=== PATIENT | female | born 1965 | race Caucasian/White ===

== ENCOUNTER 2020-07-09 09:15 | Inpatient (IN) | payer MEDICAID, SELFPAY ==
[2020-07-09] VITALS (19 sets, daily range): BP systolic 100–140; BP diastolic 59–93; PULSE 69–118; RESP 13–24; TEMP 36–38.6; O2SAT 95–99; BMI 22.3; BMI 22.5
--- NOTE | 2020-07-09 09:32 | CT_ITS ---
EXAMINATION: CT HEAD WITHOUT CONTRAST CLINICAL INFORMATION: Altered mental status, possible fall, possible trauma. COMPARISON: None TECHNIQUE: Contiguous axial imaging was performed from the skull base to vertex without intravenous administration of contrast. Additional 2-D coronal and sagittal reformatted images are generated on the CT workstation and uploaded to PACS. DOSE LOWERING TECHNIQUES: This CT examination was performed using dose optimization techniques as appropriate, variously including the following: *Automated exposure control *Adjustment of mA and/or kV according to patient size (this includes techniques or standardized protocols for targeted exams where dose is matched to indication/reason for exam; i.e. extremities or head) *Use of iterative reconstruction technique DLP: 715 mGy-cm FINDINGS: There is no intracranial hemorrhage, hematoma, or extra-axial fluid collection. The ventricles are normal in size. There is no hydrocephalus, edema, or mass effect. The pena-white matter differentiation is grossly symmetric. There is no visible acute territorial infarct or mass lesion. The calvarium appears intact. There is no pneumocephalus or orbital emphysema. The visualized sinuses and middle ears and mastoid air cells show no significant mucosal thickening. There are no air-fluid levels. IMPRESSION: No acute intracranial abnormality.
--- NOTE | 2020-07-09 09:33 | ECG_ITS ---
Test Reason : ETOH Blood Pressure : / mmHG Vent. Rate : 099 BPM Atrial Rate : 099 BPM P-R Int : 126 ms QRS Dur : 078 ms QT Int : 518 ms P-R-T Axes : 065 079 187 degrees QTc Int : 664 ms Poor data quality Normal sinus rhythm Possible Left atrial enlargement ST & Marked T wave abnormality, consider anterolateral ischemia Prolonged QT Abnormal ECG When compared with ECG of 22-MAY-2008 16:36, Significant changes have occurred Referred By: Maryam Porter Electronically Signed By:KANDI GOODWIN MD
--- NOTE | 2020-07-09 09:40 | ED.GENADULT ---
HPI - General Adult General Chief complaint: ETOH/Substance Use Stated complaint: AMS S/P ETOH USE Time Seen by Provider: 07/09/20 09:17 Source: EMS Mode of arrival: EMS Limitations: altered mental status History of Present Illness HPI narrative: patient comes to the emergency room via EMS. EMS got called by the patient's son who found the patient have naked on the floor at the patient's house. Seems that the patient has been drinking alcohol. Patient is unable to give any history, patient keeps saying that she wants to , patient seems very confused. according to EMS, the house was very dirty, feces on the floor, seems that the patient has not been taking care of herself for several days MD complaint: altered mental status Onset (ago): unknown Related Data Allergies Allergy/AdvReac Type Severity Reaction Status Date / Time No Known Allergies Allergy Unverified 06/04/20 15:43 Review of Systems Review of Systems: Yes Unobtainable due to mental status PMFSH Past Medical History Medical History (Updated 07/09/20 @ 14:42 by Maryam Porter MD) Alcoholism History of ETOH abuse Social History Social History Advance Directives: No Advance Directives Information Provided: Yes Physical Exam Vital Signs: Vital Signs: Vital Signs Temp Pulse Resp BP Pulse Ox 07/09/20 15:05 109 H 16 140/78 H 07/09/20 13:41 101.4 F H 109 H 14 117/72 98 07/09/20 13:35 118 H 24 H 119/74 07/09/20 13:23 101.4 F H 07/09/20 13:08 112 H 21 H 117/73 98 07/09/20 12:12 100.8 F H 07/09/20 11:54 103 H 20 124/78 98 07/09/20 10:28 101.1 F H 103 H 07/09/20 09:29 98.0 F 97 18 137/93 H 95 Body Mass Index 22.5 Appearance: patient unable to answer any questions, very confused, alert, keeps whispering I want to Eyes: Pupils equal, round and reactive to light, ENT: Pharynx normal. Neck: Normal inspection. Neck supple. No lymph nodes noted. No crepitus CVS: tachycardic , S1 and S2 Respiratory: No respiratory distress. Breath sounds normal. No Wheezing. No rales Abdomen: Soft seems nontender. No rigidity. No distention. good BS x4 Skin: Skin warm and dry. Normal skin color. Normal skin turgor. Extremities: No lower extremity edema. No lower extremity edema. No Lacerations. No Rash Neuro: altered mental status, cranial nerves 2-12 grossly intact Course Course Course Narrative: Patient's EKG is abnormal, new, significant changes since her last EKG in 2007. Patient able to give any history. I discussed the patient with Dr. Paulo florence from Cardiology, at this time, patient will be evaluated with a formal echocardiogram. Patient's remains with AMS patient increasingly combative, 2 mg of Ativan did not help with the agitation. Patient has a significant 3 prolonged QTC at almost 700. I discussed with pharmacy if ketamine would be appropriate for a 1 time use, there advises that it will not affect the QTC unless the patient is started on an infusion, therefore we will give a small 1 time dose of 1 week per kg of ketamine Dr. Alvarez evaluated the echocardiogram, it is likely that the patient's EKG changes are secondary to Takotsubo. At this time, it is possible that the patient has altered mental status versus delirium tremens, however given that the patient has fever and there is no known source of infection, we will proceed with a lumbar puncture And empiric treatment with ceftriaxone for possible meningitis. CSF labs pending I discussed the patient with the hospitalist, patient remains agitated after being sedated with propofol and ketamine, instead, patient will be admitted to the ICU I discussed the patient with Dr. Silvestre, admitted to ICU Procedures Lumbar Puncture Time Out Performed: Yes Patient Position: upright Skin Prep: 0.5% Chlorhexidine/Alcohol Local Anesthetic: lidocaine 1% Amount of anesthesia used (mL): 5 Spinal Needle Gauge: 22G Interspace Used: L4-L5 Opening Pressure (cmH20): 44 Fluid Initially Obtained: clear Complications: none Additional Comments: Patient was premedicated with ketamine and propofol for procedural sedation Medical Decision Making Lab Data Result diagrams: 07/09/20 10:07/09/20 10:27 Labs: Lab Results 07/09/20 07/09/20 07/09/20 Range/Units 10: 10: 10:27 WBC (4.8-10.8) X10*3/uL RBC (4.20-5.50) X10*6/uL Hgb (12.0-16.0) g/dl Hct (37-47) % MCV (80-98) fL MCH (27.0-33.0) pg MCHC (31.0-35.0) g/dl RDW (11.0-16.0) % Plt Count (160-400) X10*3/uL MPV (9.4-12.3) fL Immature Gran % (Auto) (0.0-0.4) % Neut % (Auto) (45-73) % Lymph % (Auto) (20-40) % [place] % (Auto) (2-11) % Eos % (Auto) (0-4) % Baso % (Auto) (0-2) % Lymph # (Auto) (1.2-4.9) X10*3/uL [place] # (Auto) (0.1-1.2) X10*3/uL Eos # (Auto) (0.0-0.4) X10*3/uL Baso # (Auto) (0.0-0.2) X10*3/uL Abs Immat Gran (auto) (0.00-0.03) X10*3/uL Absolute Neuts (auto) (2.0-8.3) X10*3/uL Absolute Nucleated RBC (0.0-0.012) X10*3/uL Nucleated RBC % (auto) (0.0-0.2) /100WBC Smear Tech's Comments Hold Blue Top Sodium (135-145) mmol/L Potassium (3.3-5.1) mmol/l Chloride (96-108) mmol/L Carbon Dioxide (22-29) mmol/L Anion Gap (12-20) BUN (9-16) mg/dL Creatinine (0.5-1.4) mg/dL Estim Creat Clear Calc Estimated GFR Random Glucose (60-115) mg/dL Lactic Acid (0.5-2.0) mmol/L Calcium (8.4-10.2) mg/dL Magnesium (1.6-2.6) mg/dL Total Bilirubin (0.0-1.0) mg/dL Direct Bilirubin (0.0-0.5) mg/dL AST (5-31) U/L ALT (0-31) U/L Alkaline Phosphatase (39-117) U/L Ammonia 40 (13-55) umol/L Troponin I High Sens (<3.5-17.0) ng/L Total Protein (6.5-8.0) g/dL Albumin (3.5-5.0) g/dL Lipase (8-78) U/L Urine Color Urine Appearance Urine pH (5.0-8.0) Ur Specific [place] (1.005-1.025) Urine Protein (NEG-TRACE) MG/DL Urine Glucose (UA) (NEG) MG/DL Urine Ketones (NEG) MG/DL Urine Blood (NEG) Urine Nitrite (NEG) Ur Leukocyte Esterase (NEG) Urine RBC (0) /HPF Urine WBC (0-4) /HPF Ur Squamous Epith Cells /LPF Urine Bacteria /LPF CSF Tube Number CSF Appearance Salicylates < 5.0 L (15-30) mg/dL Urine Opiates Screen (Not Detect) Acetaminophen < 1 (<30) mcg/mL Ur Barbiturates Screen (Not Detect) Ur Phencyclidine Scrn (Not Detect) Ur Amphetamines Screen (Not Detect) U Benzodiazepines Scrn (Not Detect) Urine Cocaine Screen (Not Detect) U Marijuana (THC) Screen (Not Detect) Ethyl Alcohol < 10 mg/dL 07/09/20 07/09/20 07/09/20 Range/Units 10:27 10:27 10:27 WBC 12.0 H (4.8-10.8) X10*3/uL RBC 3.78 L (4.20-5.50) X10*6/uL Hgb 13.4 (12.0-16.0) g/dl Hct 36.5 L (37-47) % MCV 96.6 (80-98) fL MCH 35.4 H (27.0-33.0) pg MCHC 36.7 H (31.0-35.0) g/dl RDW 12.2 (11.0-16.0) % Plt Count 298 (160-400) X10*3/uL MPV 11.1 (9.4-12.3) fL Immature Gran % (Auto) 0.5 H (0.0-0.4) % Neut % (Auto) 89.9 H (45-73) % Lymph % (Auto) 4.0 L (20-40) % [place] % (Auto) 5.4 (2-11) % Eos % (Auto) 0.1 (0-4) % Baso % (Auto) 0.1 (0-2) % Lymph # (Auto) 0.5 L (1.2-4.9) X10*3/uL [place] # (Auto) 0.6 (0.1-1.2) X10*3/uL Eos # (Auto) 0.0 (0.0-0.4) X10*3/uL Baso # (Auto) 0.0 (0.0-0.2) X10*3/uL Abs Immat Gran (auto) 0.06 H (0.00-0.03) X10*3/uL Absolute Neuts (auto) 10.8 H (2.0-8.3) X10*3/uL Absolute Nucleated RBC 0.000 (0.0-0.012) X10*3/uL Nucleated RBC % (auto) 0.0 (0.0-0.2) /100WBC Smear Tech's Comments VERIFIED Hold Blue Top Sodium 123 L (135-145) mmol/L Potassium 3.4 (3.3-5.1) mmol/l Chloride 85 L (96-108) mmol/L Carbon Dioxide 18 L (22-29) mmol/L Anion Gap 23 H (12-20) BUN 11 (9-16) mg/dL Creatinine 0.84 (0.5-1.4) mg/dL Estim Creat Clear Calc 67.2 Estimated GFR > 60 Random Glucose 88 (60-115) mg/dL Lactic Acid (0.5-2.0) mmol/L Calcium 9.4 (8.4-10.2) mg/dL Magnesium 1.3 L* (1.6-2.6) mg/dL Total Bilirubin 1.9 H (0.0-1.0) mg/dL Direct Bilirubin 0.8 H (0.0-0.5) mg/dL AST 98 H (5-31) U/L ALT 103 H (0-31) U/L Alkaline Phosphatase 112 (39-117) U/L Ammonia (13-55) umol/L Troponin I High Sens 41.0 H (<3.5-17.0) ng/L Total Protein 7.1 (6.5-8.0) g/dL Albumin 4.5 (3.5-5.0) g/dL Lipase 9 (8-78) U/L Urine Color Urine Appearance Urine pH (5.0-8.0) Ur Specific [place] (1.005-1.025) Urine Protein (NEG-TRACE) MG/DL Urine Glucose (UA) (NEG) MG/DL Urine Ketones (NEG) MG/DL Urine Blood (NEG) Urine Nitrite (NEG) Ur Leukocyte Esterase (NEG) Urine RBC (0) /HPF Urine WBC (0-4) /HPF Ur Squamous Epith Cells /LPF Urine Bacteria /LPF CSF Tube Number CSF Appearance Salicylates (15-30) mg/dL Urine Opiates Screen (Not Detect) Acetaminophen (<30) mcg/mL Ur Barbiturates Screen (Not Detect) Ur Phencyclidine Scrn (Not Detect) Ur Amphetamines Screen (Not Detect) U Benzodiazepines Scrn (Not Detect) Urine Cocaine Screen (Not Detect) U Marijuana (THC) Screen (Not Detect) Ethyl Alcohol mg/dL 07/09/20 07/09/20 07/09/20 Range/Units 10:39 10:39 11:34 WBC (4.8-10.8) X10*3/uL RBC (4.20-5.50) X10*6/uL Hgb (12.0-16.0) g/dl Hct (37-47) % MCV (80-98) fL MCH (27.0-33.0) pg MCHC (31.0-35.0) g/dl RDW (11.0-16.0) % Plt Count (160-400) X10*3/uL MPV (9.4-12.3) fL Immature Gran % (Auto) (0.0-0.4) % Neut % (Auto) (45-73) % Lymph % (Auto) (20-40) % [place] % (Auto) (2-11) % Eos % (Auto) (0-4) % Baso % (Auto) (0-2) % Lymph # (Auto) (1.2-4.9) X10*3/uL [place] # (Auto) (0.1-1.2) X10*3/uL Eos # (Auto) (0.0-0.4) X10*3/uL Baso # (Auto) (0.0-0.2) X10*3/uL Abs Immat Gran (auto) (0.00-0.03) X10*3/uL Absolute Neuts (auto) (2.0-8.3) X10*3/uL Absolute Nucleated RBC (0.0-0.012) X10*3/uL Nucleated RBC % (auto) (0.0-0.2) /100WBC Smear Tech's Comments Hold Blue Top SEE NOTE Sodium (135-145) mmol/L Potassium (3.3-5.1) mmol/l Chloride (96-108) mmol/L Carbon Dioxide (22-29) mmol/L Anion Gap (12-20) BUN (9-16) mg/dL Creatinine (0.5-1.4) mg/dL Estim Creat Clear Calc Estimated GFR Random Glucose (60-115) mg/dL Lactic Acid 1.6 (0.5-2.0) mmol/L Calcium (8.4-10.2) mg/dL Magnesium (1.6-2.6) mg/dL Total Bilirubin (0.0-1.0) mg/dL Direct Bilirubin (0.0-0.5) mg/dL AST (5-31) U/L ALT (0-31) U/L Alkaline Phosphatase (39-117) U/L Ammonia (13-55) umol/L Troponin I High Sens (<3.5-17.0) ng/L Total Protein (6.5-8.0) g/dL Albumin (3.5-5.0) g/dL Lipase (8-78) U/L Urine Color YELLOW Urine Appearance HAZY Urine pH 6.0 (5.0-8.0) Ur Specific [place] 1.020 (1.005-1.025) Urine Protein NEG (NEG-TRACE) MG/DL Urine Glucose (UA) NEG (NEG) MG/DL Urine Ketones >=80 (NEG) MG/DL Urine Blood TRACE (NEG) Urine Nitrite NEG (NEG) Ur Leukocyte Esterase NEG (NEG) Urine RBC 0-2 (0) /HPF Urine WBC 0 (0-4) /HPF Ur Squamous Epith Cells TRACE /LPF Urine Bacteria NONE /LPF CSF Tube Number CSF Appearance Salicylates (15-30) mg/dL Urine Opiates Screen (Not Detect) Acetaminophen (<30) mcg/mL Ur Barbiturates Screen (Not Detect) Ur Phencyclidine Scrn (Not Detect) Ur Amphetamines Screen (Not Detect) U Benzodiazepines Scrn (Not Detect) Urine Cocaine Screen (Not Detect) U Marijuana (THC) Screen (Not Detect) Ethyl Alcohol mg/dL 07/09/20 07/09/20 Range/Units 11:34 14:49 WBC (4.8-10.8) X10*3/uL RBC (4.20-5.50) X10*6/uL Hgb (12.0-16.0) g/dl Hct (37-47) % MCV (80-98) fL MCH (27.0-33.0) pg MCHC (31.0-35.0) g/dl RDW (11.0-16.0) % Plt Count (160-400) X10*3/uL MPV (9.4-12.3) fL Immature Gran % (Auto) (0.0-0.4) % Neut % (Auto) (45-73) % Lymph % (Auto) (20-40) % [place] % (Auto) (2-11) % Eos % (Auto) (0-4) % Baso % (Auto) (0-2) % Lymph # (Auto) (1.2-4.9) X10*3/uL [place] # (Auto) (0.1-1.2) X10*3/uL Eos # (Auto) (0.0-0.4) X10*3/uL Baso # (Auto) (0.0-0.2) X10*3/uL Abs Immat Gran (auto) (0.00-0.03) X10*3/uL Absolute Neuts (auto) (2.0-8.3) X10*3/uL Absolute Nucleated RBC (0.0-0.012) X10*3/uL Nucleated RBC % (auto) (0.0-0.2) /100WBC Smear Tech's Comments Hold Blue Top Sodium (135-145) mmol/L Potassium (3.3-5.1) mmol/l Chloride (96-108) mmol/L Carbon Dioxide (22-29) mmol/L Anion Gap (12-20) BUN (9-16) mg/dL Creatinine (0.5-1.4) mg/dL Estim Creat Clear Calc Estimated GFR Random Glucose (60-115) mg/dL Lactic Acid (0.5-2.0) mmol/L Calcium (8.4-10.2) mg/dL Magnesium (1.6-2.6) mg/dL Total Bilirubin (0.0-1.0) mg/dL Direct Bilirubin (0.0-0.5) mg/dL AST (5-31) U/L ALT (0-31) U/L Alkaline Phosphatase (39-117) U/L Ammonia (13-55) umol/L Troponin I High Sens (<3.5-17.0) ng/L Total Protein (6.5-8.0) g/dL Albumin (3.5-5.0) g/dL Lipase (8-78) U/L Urine Color Urine Appearance Urine pH (5.0-8.0) Ur Specific [place] (1.005-1.025) Urine Protein (NEG-TRACE) MG/DL Urine Glucose (UA) (NEG) MG/DL Urine Ketones (NEG) MG/DL Urine Blood (NEG) Urine Nitrite (NEG) Ur Leukocyte Esterase (NEG) Urine RBC (0) /HPF Urine WBC (0-4) /HPF Ur Squamous Epith Cells /LPF Urine Bacteria /LPF CSF Tube Number 2 CSF Appearance CLEAR Salicylates (15-30) mg/dL Urine Opiates Screen Not Detected (Not Detect) Acetaminophen (<30) mcg/mL Ur Barbiturates Screen Not Detected (Not Detect) Ur Phencyclidine Scrn Not Detected (Not Detect) Ur Amphetamines Screen Not Detected (Not Detect) U Benzodiazepines Scrn Not Detected (Not Detect) Urine Cocaine Screen Not Detected (Not Detect) U Marijuana (THC) Screen Not Detected (Not Detect) Ethyl Alcohol mg/dL ECG Data Attestation: I personally reviewed and interpreted this ECG as follows: ( sinus rhythm, ventricular rate 99, QTC 669, significant T-wave inversions in V3 through V6, new since 2007) Critical Care Time Critical Care Time Critical Care Time: Yes Total Critical Care Time: 180 Attestation: patient needed over 3 hours of continuous monitor, care, sedation, consults, care planning, and procedures Discharge Plan Discharge Clinical Impression: Encephalopathy Patient Disposition: Admitted As Inpatient
--- NOTE | 2020-07-09 10:11 | ECG_ITS ---
Test Reason : REPEAT Blood Pressure : / mmHG Vent. Rate : 099 BPM Atrial Rate : 099 BPM P-R Int : 124 ms QRS Dur : 088 ms QT Int : 522 ms P-R-T Axes : 080 084 189 degrees QTc Int : 669 ms Normal sinus rhythm Biatrial enlargement ST & Marked T wave abnormality, consider anterolateral ischemia Prolonged QT Abnormal ECG When compared with ECG of 09-JUL-2020 09:43, No significant change was found Referred By: Maryam Porter Electronically Signed By:KANDI GOODWIN MD
[2020-07-09 10:41] LABS: Basophils Percent Auto 0.1 % (0-2); Eosinophils Percent Auto 0.1 % (0-4); Hematocrit 36.5 % (37-47); Hemoglobin 13.4 g/dl (12.0-16.0); Imm Gran Abs Auto 0.06 X10*3/uL (0.00-0.03); Imm Gran Pct Auto 0.5 % (0.0-0.4); Lymphocytes Absolute Auto 0.5 X10*3/uL (1.2-4.9); MANUAL DIFF FLAG SCAN; Mean Corpuscular HGB Conc 36.7 g/dl (31.0-35.0); Mean Corpuscular Hemoglobin 35.4 pg (27.0-33.0); Mean Corpuscular Volume 96.6 fL (80-98); Mean Platelet Volume 11.1 fL (9.4-12.3); Monocytes Absolute Auto 0.6 X10*3/uL (0.1-1.2); Monocytes Percent Auto 5.4 % (2-11); Neutrophils Absolute Auto 10.8 X10*3/uL (2.0-8.3); Neutrophils Percent Auto 89.9 % (45-73); Platelet Count 298 X10*3/uL (160-400); Red Blood Count 3.78 X10*6/uL (4.20-5.50); Red Cell Distribution Width 12.2 % (11.0-16.0); SCAN SMEAR FLAG 1
[2020-07-09] MEDS: Acetaminophen 325 MG TABLET 650 MG PO (10:48)
[2020-07-09 10:59] LABS: Ammonia 40 umol/L (13-55)
[2020-07-09 11:03] LABS: Ethanol < 10 mg/dL
--- NOTE | 2020-07-09 11:03 | PC.NURSE ---
Put seizure pads on pts stretcher for safety precautions. Pt anxious and unable to keep legs and arms in stretcher. RN aware.
[2020-07-09 11:08] LABS: Salicylate < 5.0 mg/dL (15-30)
[2020-07-09 11:09] LABS: Lactic Acid 1.6 mmol/L (0.5-2.0)
[2020-07-09 11:10] LABS: Acetaminophen LAB < 1 mcg/mL (<30)
[2020-07-09 11:11] LABS: Alanine Aminotransferase 103 U/L (0-31); Albumin Level 4.5 g/dL (3.5-5.0); Alkaline Phosphatase 112 U/L (39-117); Aspartate Amino Transferase 98 U/L (5-31); Bilirubin Direct 0.8 mg/dL (0.0-0.5); Bilirubin Total 1.9 mg/dL (0.0-1.0); Blood Urea Nitrogen 11 mg/dL (9-16); Calcium 9.4 mg/dL (8.4-10.2); Creatinine Clr Calc Pharmacy 67.2; Estimated Glomerular Filt Rate > 60; Glucose Random 88 mg/dL (60-115); Lipase 9 U/L (8-78); Total Protein 7.1 g/dL (6.5-8.0)
[2020-07-09 11:17] LABS: SLIDE REVIEW VERIFIED
[2020-07-09 11:24] LABS: Anion Gap 23 (12-20); Carbon Dioxide 18 mmol/L (22-29); Chloride 85 mmol/L (96-108); Potassium 3.4 mmol/l (3.3-5.1); Sodium 123 mmol/L (135-145)
--- NOTE | 2020-07-09 11:36 | CA_ITS ---
Transthoracic Echocardiogram Patient (Last, First, Middle): Shelly Mac, Gender: Female Date of : 1965 Age: 54 Procedure Date: 07/09/2020 Procedure Type: Transthoracic Echocardiogram Location: ER Height: 165.1 cm Weight: 61.24 kg BSA: 1.67 m2 Heart Rate: bpm BP: 124 / 78 mmHg Ingot Weigher: SIRIA Referring MD: Maryam Porter MD Symptoms: ITS.REASON Conclusions: - Limited echo. Patient is quite confused and agitated. - Normal left ventricular cavity size. There is mildly increased left ventricular wall thickness. The left ventricular systolic function is normal. - The entire apex, the mid anterior, mid inferior, mid anterolateral, mid inferoseptal, mid anteroseptal, and mid inferolateral segments are hypokinetic. - Findings consistent with Takotsubo cardiomyopathy but coronary disease cannot be ruled out. - Cannot rule out apical hypertrophy and she will require further imaging as mental status improves. Findings Left Ventricle Normal left ventricular cavity size. There is mildly increased left ventricular wall thickness. The left ventricular systolic function is normal. The visually estimated ejection fraction is between 55-60%. There is evidence of regional wall motion abnormalities. Diastolic function is indeterminate on the basis of available data. Wall Motion Rest Echo Findings The entire apex, the mid anterior, mid inferior, mid anterolateral, mid inferoseptal, mid anteroseptal, and mid inferolateral segments are hypokinetic. Right Ventricle Normal right ventricular cavity size and systolic function. Prior Study Comparison No prior study available for comparison. Updated in Other Vendor System with Status of Final Billy Alvarez MD electronically signed on 07/09/2020 1:30:11 PM with status of Final
[2020-07-09] MEDS: LORazepam 2 MG/ML VIAL IVPUSH (11:51)
--- NOTE | 2020-07-09 11:51 | P.CONCA_ITS ---
History of Present Illness History of Present Illness Date of Consult: July 09, 2020 Requesting physician: Maryam Porter Chief complaint: AMS S/P ETOH USE, anterolateral T wave inversions Narrative: 54-year-old female with alcoholism who is presenting with that change in mental status and confusion. She is quite altered right now. We have been involved because her EKG is significantly abnormal showing anterolateral T- wave inversions with prolonged QTC. She is completely order right now and no history is possible. She keeps saying I am not feeling well. I am dying'. she had CT head which did not show intracranial hemorrhage. I tried to do a bedside echocardiogram which showed apical hypertrophy but she was not very cdl program coordinator perative at the time of the echocardiogram and images were quite motion limited. We will do a formal bedside echocardiogram after she is sedated. Review of Systems Review of Systems: Yes Unobtainable due to mental status [facility] Past Medical History Medical History History of ETOH abuse Social History Social History Advance Directives: No Advance Directives Information Provided: Yes Meds Allergies Allergy/AdvReac Type Severity Reaction Status Date / Time No Known Allergies Allergy Unverified 06/04/20 15:43 Physical Exam Vital Signs: Vital Signs: Vital Signs Temp Pulse Resp BP Pulse Ox 07/09/20 10:28 101.1 F H 103 H 07/09/20 09:29 98.0 F 97 18 137/93 H 95 Body Mass Index 22.5 GENERAL APPEARANCE: Quite altered and distressed HEAD: normocephalic, atraumatic. pupils: dilated HEART: no murmurs, regular rate and rhythm, S1, S2 normal. LUNGS: clear to auscultation bilaterally. ABDOMEN: soft EXTREMITIES: no edema PERIPHERAL PULSES: equal. NEUROLOGIC: very altered and agitated. Not following any commands. Results Labs and Meds Result diagrams: 07/09/20 10:27 07/09/20 10:27 Lab results: Laboratory Results - last 24 hr 07/09/20 07/09/20 07/09/20 10:27 10:27 10:27 WBC RBC Hgb Hct MCV MCH MCHC RDW Plt Count MPV Immature Gran % (Auto) Neut % (Auto) Lymph % (Auto) [place] % (Auto) Eos % (Auto) Baso % (Auto) Lymph # (Auto) [place] # (Auto) Eos # (Auto) Baso # (Auto) Abs Immat Gran (auto) Absolute Neuts (auto) Absolute Nucleated RBC Nucleated RBC % (auto) Smear Tech's Comments Hold Blue Top Sodium Potassium Chloride Carbon Dioxide Anion Gap BUN Creatinine Estim Creat Clear Calc Estimated GFR Random Glucose Lactic Acid Calcium Total Bilirubin Direct Bilirubin AST ALT Alkaline Phosphatase Ammonia 40 Troponin I High Sens Total Protein Albumin Lipase Salicylates < 5.0 L Acetaminophen < 1 Ethyl Alcohol < 10 07/09/20 07/09/20 07/09/20 10:27 10:27 10:27 WBC 12.0 H RBC 3.78 L Hgb 13.4 Hct 36.5 L MCV 96.6 MCH 35.4 H MCHC 36.7 H RDW 12.2 Plt Count 298 MPV 11.1 Immature Gran % (Auto) 0.5 H Neut % (Auto) 89.9 H Lymph % (Auto) 4.0 L [place] % (Auto) 5.4 Eos % (Auto) 0.1 Baso % (Auto) 0.1 Lymph # (Auto) 0.5 L [place] # (Auto) 0.6 Eos # (Auto) 0.0 Baso # (Auto) 0.0 Abs Immat Gran (auto) 0.06 H Absolute Neuts (auto) 10.8 H Absolute Nucleated RBC 0.000 Nucleated RBC % (auto) 0.0 Smear Tech's Comments VERIFIED Hold Blue Top Sodium 123 L Potassium 3.4 Chloride 85 L Carbon Dioxide 18 L Anion Gap 23 H BUN 11 Creatinine 0.84 Estim Creat Clear Calc 67.2 Estimated GFR > 60 Random Glucose 88 Lactic Acid Calcium 9.4 Total Bilirubin 1.9 H Direct Bilirubin 0.8 H AST 98 H ALT 103 H Alkaline Phosphatase 112 Ammonia Troponin I High Sens 41.0 H Total Protein 7.1 Albumin 4.5 Lipase 9 Salicylates Acetaminophen Ethyl Alcohol 07/09/20 07/09/20 10:39 10:39 WBC RBC Hgb Hct MCV MCH MCHC RDW Plt Count MPV Immature Gran % (Auto) Neut % (Auto) Lymph % (Auto) [place] % (Auto) Eos % (Auto) Baso % (Auto) Lymph # (Auto) [place] # (Auto) Eos # (Auto) Baso # (Auto) Abs Immat Gran (auto) Absolute Neuts (auto) Absolute Nucleated RBC Nucleated RBC % (auto) Smear Tech's Comments Hold Blue Top SEE NOTE Sodium Potassium Chloride Carbon Dioxide Anion Gap BUN Creatinine Estim Creat Clear Calc Estimated GFR Random Glucose Lactic Acid 1.6 Calcium Total Bilirubin Direct Bilirubin AST ALT Alkaline Phosphatase Ammonia Troponin I High Sens Total Protein Albumin Lipase Salicylates Acetaminophen Ethyl Alcohol Cardiology Testing Echo: pending Imaging CT scan - head: Radiologist's impression: No acute intracranial pathology EKG Interpretation EKG Comments: sinus rhythm, normal axis, diffuse white based T-wave inversions. QTC 664 milliseconds. Assessment and Plan (1) Alcoholism: Status: Acute (2) Abnormal ECG: Status: Acute (3) Altered mental status: Status: Acute (4) Prolonged QT interval: Status: Acute 54-year-old female who is presenting with altered mental status. She has background of alcoholism and was in with alcohol intoxication couple of days ago in the ER. She is now presenting with change in mental status. Her drug screen is currently in pending. she has significantly abnormal ECG. Her QTC is significantly prolonged with diffuse T-wave inversions. She had CT head to rule out subarachnoid bleed which Did not show any bleed. No history is possible from her that whether she has chest discomfort or not as similar changes can happen with ischemia although I doubt that is the case. Also takotsubo cardiomyopathy can give similar changes specially with significantly prolonged QTC. I think we need to do echocardiogram on her which we will do as soon as possible. I tried to scan her and I saw that her apex is hyperdynamic and probably she has apically hypertrophy but we will confirm that. In the meantime she also has an anion gap acidosis of 23 with hyponatremia. She should have further workup for this. She should have magnesium checked as hypomagnesemia is a common issue in alcoholics which can lead to QT prolongation. we should keep her magnesium close to 2 at all times and potassium more than 4. Depending on echocardiography if she has wall motion abnormality then I would favor starting her on heparin drip. On the other hand if her wall motion is normal with these ECG changes and her repeat troponin testing does not show any significant change then I will hold off on heparin. We will follow along with you. Thank you for allowing me to participate in the care of your patient. Please feel free to contact me if you have any questions.
--- NOTE | 2020-07-09 12:12 | XR_ITS ---
EXAMINATION: XR CHEST CLINICAL INFORMATION: Fever COMPARISON: CT chest noncontrast 03/29/2019. TECHNIQUE: Portable upright AP view of the chest was obtained. FINDINGS: The lungs are clear. There is no airspace consolidation or groundglass opacity. No pleural reaction or effusion. The costophrenic sulci are clear. The heart is normal in size. The hilar and mediastinal contours are normal. There is curvature again noted thoracic spine. XR/XR chest 1V IMPRESSION: Unremarkable examination.
[2020-07-09 12:20] LABS: Amphetamine Screen Urine Not Detected (Not Detect); Barbiturates, Urine Not Detected (Not Detect); Benzodiazepines Screen Urine Not Detected (Not Detect); Cannabinoid Screen Urine Not Detected (Not Detect); Cocaine Screen Urine Not Detected (Not Detect); Opiate Screen Urine Not Detected (Not Detect); Phencyclidine Screen Urine Not Detected (Not Detect)
[2020-07-09] MEDS: Magnesium Sulfate/H2O 2 GM/50 ML PIGGYBACK IV (12:40)
[2020-07-09 12:54] LABS: Glucose Urine UA NEG (NEG); Leukocyte Esterase Urine NEG (NEG); Nitrite Urine NEG (NEG); Urine Blood TRACE (NEG); Urine Ketones >=80 MG/DL (NEG); Urine Protein NEG (NEG-TRACE)
[2020-07-09 12:57] LABS: Appearance Urine HAZY; Color Urine YELLOW
--- NOTE | 2020-07-09 13:10 | PC.NURSE ---
pt states that she took a bunch of pills trying to hurt herself and something about I can't do it Nickolas i can't take care of my dad anymore .
--- NOTE | 2020-07-09 13:42 | PC.NURSE ---
PT STATES DADDY I CAN'T TAKE CARE OF YOU SEXUALLY ANYMORE X 2
[2020-07-09 13:45] LABS: RBC Urine 0-2 /HPF (0); Squamous Epithelial Cell Urine TRACE /LPF; WBC Urine 0 /HPF (0-4)
[2020-07-09] MEDS: Ketamine HCl 500 MG/5 ML VIAL 10 MG IV (14:00)
[2020-07-09 14:29] LABS: Magnesium 1.3 mg/dL (1.6-2.6)
[2020-07-09] MEDS: propofoL 200 MG/20 ML VIAL 50 MG IVPUSH (14:29)
[2020-07-09 15:04] LABS: Appearance CSF CLEAR; CSF Tube # 2
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
[2020-07-09 15:33] LABS: Glucose CSF 55 mg/dL; Total Protein CSF 67.2 mg/dL (15-45)
[2020-07-09 15:36] LABS: Appearance CSF CLEAR; CSF Tube # 4; Color CSF COLORLESS
[2020-07-09 15:37] LABS: CSF Monos 8 %; Lymphocytes CSF 4 %; Neutrophils CSF 88 %; Red Blood Cell CSF 0 MM*3; White Blood Cell CSF 7 MM*3
[2020-07-09 15:51] LABS: Troponin-I High Sensitivity 52.9 ng/L (<3.5-17.0)
[2020-07-09] MEDS: cefTRIAXone sodium 2 GM in 0.9 % Sodium Chloride 50 ML IV (16:28)
[2020-07-09] MEDS: 0.9 % Sodium Chloride Flush 3 ML SYRINGE IVFLUSH (17:04)
--- NOTE | 2020-07-09 17:56 | ECG_ITS ---
Test Reason : T WAVE INVERSIONS Blood Pressure : / mmHG Vent. Rate : 096 BPM Atrial Rate : 096 BPM P-R Int : 138 ms QRS Dur : 080 ms QT Int : 474 ms P-R-T Axes : 066 077 171 degrees QTc Int : 598 ms Normal sinus rhythm Possible Left atrial enlargement ST & Marked T wave abnormality, consider anterolateral ischemia Prolonged QT Abnormal ECG When compared with ECG of 09-JUL-2020 10:11, No significant changes seen Referred By: Tashi Silvestre Electronically Signed By:KANDI GOODWIN MD
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
[2020-07-10] VITALS (15 sets, daily range): BP systolic 90–159; BP diastolic 57–99; PULSE 62–99; RESP 14–24; TEMP 36.4–37.8; O2SAT 93–99; BMI 24.2
[2020-07-10] MEDS: 0.9 % Sodium Chloride Flush 3 ML SYRINGE IVFLUSH ×2 (00:52→18:25)
[2020-07-10 05:47] LABS: MANUAL DIFF FLAG NO
[2020-07-10 06:14] LABS: Basophils Percent Auto 0.3 % (0-2); Eosinophils Percent Auto 0.3 % (0-4); Hematocrit 32.6 % (37-47); Hemoglobin 11.6 g/dl (12.0-16.0); Imm Gran Abs Auto 0.03 X10*3/uL (0.00-0.03); Imm Gran Pct Auto 0.4 % (0.0-0.4); Lymphocytes Absolute Auto 1.2 X10*3/uL (1.2-4.9); Lymphocytes Percent Auto 15.4 % (20-40); Mean Corpuscular HGB Conc 35.6 g/dl (31.0-35.0); Mean Corpuscular Hemoglobin 36.4 pg (27.0-33.0); Mean Corpuscular Volume 102.2 fL (80-98); Mean Platelet Volume 11.8 fL (9.4-12.3); Monocytes Absolute Auto 0.8 X10*3/uL (0.1-1.2); Monocytes Percent Auto 10.3 % (2-11); Neutrophils Absolute Auto 5.5 X10*3/uL (2.0-8.3); Neutrophils Percent Auto 73.3 % (45-73); Platelet Count 257 X10*3/uL (160-400); Red Blood Count 3.19 X10*6/uL (4.20-5.50); Red Cell Distribution Width 12.7 % (11.0-16.0); White Blood Count 7.5 X10*3/uL (4.8-10.8)
[2020-07-10 06:25] LABS: Anion Gap 14 (12-20); Blood Urea Nitrogen 9 mg/dL (9-16); Calcium 8.3 mg/dL (8.4-10.2); Carbon Dioxide 21 mmol/L (22-29); Chloride 98 mmol/L (96-108); Creatinine Clr Calc Pharmacy 72.4; Estimated Glomerular Filt Rate > 60; Glucose Fasting 175 mg/dL (60-99); Potassium 2.8 mmol/l (3.3-5.1); Sodium 130 mmol/L (135-145)
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
--- NOTE | 2020-07-10 08:06 | MHC.CDI.CONC ---
CDI Concurrent Query Service Date: 07/10/20 Documentation Clarification: TOXIC METABOLIC ENCEPHALOPATHY. Please clarify if you are treating a probable/suspected/likely or confirmed: Toxic/metabolic Encephalopathy Acute Encephalopathy Please specify if known Provider Response: Toxic Encephalopathy PLEASE DO NOT DELETE/MODIFY EXISTING CONTENT Additional information is needed in order to code to the highest accuracy and appropriate Severity of Illness (SOI). Please clarify the information noted below in your progress notes and discharge summary. Risk Factors/Clinical Indicators/Treatments Ed: patient seems very confused, altered mental status at this time possible the AMS vs. delirium tremons, pt has fevers, no source of infection. LP ordered. History of alcoholism, relapsed. Patient stated she took klonopins and alcohol home. Assessment/plan: ICU - Altered mental status likely secondary to some toxic ingestion. Temp 101.4 HR 109 RR CDS: Viky Wu CCS, CDIS Contact Number: [phone]. [phone] Please Review the information above and exercise your independent professional judgment in responding to the query. If you concur, pleas document in the PROGRESS NOTES and DISCHARGE SUMMARY. If you do not agree with the query, please document in the query above. THIS QUERY IS PART OF THE PERMANENT MEDICAL RECORD
--- NOTE | 2020-07-10 08:47 | ECG_ITS ---
Test Reason : ST DEPRESSION Blood Pressure : / mmHG Vent. Rate : 059 BPM Atrial Rate : 059 BPM P-R Int : 162 ms QRS Dur : 086 ms QT Int : 592 ms P-R-T Axes : 055 069 176 degrees QTc Int : [address] & Marked T wave abnormality, consider anterolateral ischemia Prolonged QT Abnormal ECG When compared with ECG of 09-JUL-2020 17:56, Vent. rate has decreased BY 37 BPM Referred By: Tashi Silvestre Electronically Signed By:KANDI GOODWIN MD
--- NOTE | 2020-07-10 12:40 | PM.CCPN ---
Subjective Subjective Date of Service: 07/10/20 Interval History: Mrs. Mac was admitted to ICU yesterday afternoon bec of combative altered mental status. The patient is 54 yo F w PMHx of previous alcoholism. She was admitted to [facility] in 2018 with mild alcoholic hepatitis. She?s been sober for 5 years, but relapsed a few weeks ago. She has a history of -induced hypertension. She lives in a house with her father, and she is the father's caregiver. The patient is , with 4 children. Occasionally, one of the sons visits. The patient is fully independently functional. She drives, etc. 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 She was laid off from work at the beginning of the current COVID epidemic. Yest morning, the patient?s son called EMS bec he found the patient half naked on the floor at the patient's house. The patient had reportedly been drinking alcohol. According to EMS, the house was very dirty, feces on the floor, seemed that the patient has not been taking care of herself for several days. Report from the ED nurses was that the patient was recently started on antidepressants, but I don?t know where that information comes from. After arrival in the ICU, the patient told us that she took 2 Clonidine tablets (not Klonopin) that morning plus some light alcoholic beverage. In the ED yest morning, the patient was alert but combative and confused, unable to give any history, and kept whispering that she wants to . Initial vital signs in the ED showed a temperature of 98 degrees which subsequently kallie to 101 degrees. Heart rate was around 100, sinus rhythm. Blood pressure is 137/90, respiratory rate was 18 with a sat of 95-98% on room air. The general physical exam was unremarkable. Labs in the ED were notable for white count of 12.0. Platelet count was 298. Chemistries were notable for a sodium of 123, potassium 3.4, chloride 85, bicarb of 18, BUN and creatinine of 11/0.8, glucose of 88, magnesium of 1.3, total bili of 1.9, AST/ALT 98/103, albumin of 4.5, and a lactic acid of 1.6. Urinalysis was negative except for urine ketones greater than 80. The EKG was notable for a prolonged QT with anterolat Tw inversion. High sensitivity troponin was 41 and the repeat was 52. CXR was clear and head CT was unremarkable. Ammonia level was 40, salicylates and acetaminophen were negative, ethyl alcohol was also negative, urine tox screen was negative throughout. A limited echo showed normal left ventricular cavity size with overall normal EF. The entire apex, and the mid anterior, mid inferior, mid anterolateral, mid inferoseptal, mid anteroseptal, and mid inferolateral segments were hypokinetic. Dr. Alvarez?s opinion was that the findings were c/w Takotsubo cardiomyopathy, but coronary disease could not be ruled out. An LP was done bec of AMS w fever. LP results showed clear CSF w 7 WBCs, 0 RBCs, 88% neutrophils, CSF glucose 55, CSF total protein 67 (upper limits of normal 45). CSF Gram stain shows 2+ polys, no organisms. She was given ceftriaxone in the ED, and then admitted to ICU bec she was too combative to go to the floor. On arrival to the ICU about 5pm, she was fully alert and moderately combative, requiring 2 point restraints. Temperature 96.8 degrees. Heart rate about 98, blood pressure 105/75, breathing easy on room air with sat of 99%. Physical exam including neuro exam, otherwise completely normal. We started her on Precedex and her combativeness resolved and we were able to take the restraints off. The mening/encephalitis panel came back negative so no further abx were given. (The only antibiotics she got was one dose of ceftriaxone in the ED.) This morning, we turned the Precedex off and the patient woke up. She?s fully alert, oriented, and appropriate. She looks thoroughly nontoxic and healthy. She tells me that she is somewhat embarrassed about what happened yesterday, because she has no memory at all of what happened. She denies having taken anything other than the two clonidine tabs mentioned above. She denies any suicidal ideation. She did say that she had not had anything to eat in two days, because she?d been so stressed, taking care of her father. See vital signs below. She is afebrile. Breathing easy with a sat mid to high 90s on room air. Blood pressure is running about 100/60. Physical exam entirely negative. LABORATORY DATA: As below. Notably, white count is down to 7.5. Sodium is up to 130. MICROBIOLOGY: The anaerobic bottle of one set of her blood cultures drawn yesterday morning turned positive this morning (at about 23 hours) for two organisms, Gram-positive rods and Gram-positive cocci in clusters. IMPRESSION: 1. Altered mental status. Likely secondary to some toxic ingestion. Alternatively hyponatremia may have been a contributing factor. She ?slept it off? as anticipated. 2. Hyponatremia. She had 1L of saline. I expect her to autocorrect further from here via diet. 3. ID: Fever with leukocytosis, positive blood cultures. She could easily have had some chemical pneumonitis from aspiration. The cell count on the LP is also not concerning, and there?s no clinical evidence of meningitis. IMO, the blood cultures are a contaminant. No need for antibiotics or any further investigation (unless the second set of BCs or the CSF grow out). 4. EKG and echo changes. Suggest discussing further f/u with Dr. Alvarez. Otherwise usual supportive care. Stable for transfer to med-surg. I will sign out to the hospitalists. Time: . Physical Exam Vital Signs: Vital Signs: Vital Signs Temp Pulse Resp BP Pulse Ox 07/10/20 11:00 79 16 99/72 95 07/10/20 10:00 77 14 104/65 96 07/10/20 09:00 80 16 97 07/10/20 08:00 97.6 F 62 24 H 91/57 L 95 07/10/20 07:00 63 21 H 92/57 L 96 07/10/20 06:00 66 18 105/71 99 07/10/20 05:00 97.8 F 63 101/69 96 07/10/20 04:00 97 17 90/62 96 07/10/20 02:00 67 20 105/71 07/10/20 00:58 69 18 119/80 07/10/20 00:00 68 18 119/80 96 07/09/20 22:48 69 20 108/70 97 07/09/20 21:55 69 13 100/61 07/09/20 21:00 69 22 H 100/61 99 07/09/20 20:00 97.5 F 77 20 100/59 L 96 07/09/20 18:58 80 19 119/67 07/09/20 17:49 98 22 H 105/75 99 07/09/20 17:00 96.8 F 104 H 22 H 123/73 07/09/20 16:12 105 H 20 113/73 07/09/20 16:04 107 H 20 123/80 07/09/20 15:16 100.8 F H 108 H 22 H 119/83 99 07/09/20 15:05 109 H 16 140/78 H 07/09/20 13:41 101.4 F H 109 H 14 117/72 98 07/09/20 13:35 118 H 24 H 119/74 07/09/20 13:23 101.4 F H 07/09/20 13:08 112 H 21 H 117/73 98 Body Mass Index 24.2 Objective Data Labs CBC & Chem 7: 07/10/20 05:37 07/10/20 05:37 Labs: Laboratory Results - last 24 hr 07/09/20 07/09/20 07/09/20 10:27 11:34 14:49 WBC RBC Hgb Hct MCV MCH MCHC RDW Plt Count MPV Immature Gran % (Auto) Neut % (Auto) Lymph % (Auto) [place] % (Auto) Eos % (Auto) Baso % (Auto) Lymph # (Auto) [place] # (Auto) Eos # (Auto) Baso # (Auto) Abs Immat Gran (auto) Absolute Neuts (auto) Absolute Nucleated RBC Nucleated RBC % (auto) Sodium Potassium Chloride Carbon Dioxide Anion Gap BUN Creatinine Estim Creat Clear Calc Estimated GFR Fasting Glucose Calcium Phosphorus Magnesium 1.3 L* Troponin I High Sens Urine Color YELLOW Urine Appearance HAZY Urine pH 6.0 Ur Specific [place] 1.020 Urine Protein NEG Urine Glucose (UA) NEG Urine Ketones >=80 Urine Blood TRACE Urine Nitrite NEG Ur Leukocyte Esterase NEG Urine RBC 0-2 Urine WBC 0 Ur Squamous Epith Cells TRACE Urine Bacteria NONE CSF Tube Number 2 CSF Volume CSF Appearance CLEAR CSF Color CSF WBC CSF RBC CSF Neutrophils CSF Lymphocytes CSF Monocytes % CSF Glucose 55 CSF Total Protein 67.2 H CSF Mening/Enceph PCR 07/09/20 07/09/20 07/09/20 14:49 14:50 15:07 WBC RBC Hgb Hct MCV MCH MCHC RDW Plt Count MPV Immature Gran % (Auto) Neut % (Auto) Lymph % (Auto) [place] % (Auto) Eos % (Auto) Baso % (Auto) Lymph # (Auto) [place] # (Auto) Eos # (Auto) Baso # (Auto) Abs Immat Gran (auto) Absolute Neuts (auto) Absolute Nucleated RBC Nucleated RBC % (auto) Sodium Potassium Chloride Carbon Dioxide Anion Gap BUN Creatinine Estim Creat Clear Calc Estimated GFR Fasting Glucose Calcium Phosphorus Magnesium Troponin I High Sens 52.9 H Urine Color Urine Appearance Urine pH Ur Specific [place] Urine Protein Urine Glucose (UA) Urine Ketones Urine Blood Urine Nitrite Ur Leukocyte Esterase Urine RBC Urine WBC Ur Squamous Epith Cells Urine Bacteria CSF Tube Number 4 CSF Volume 2.0 CSF Appearance CLEAR CSF Color COLORLESS CSF WBC 7 CSF RBC 0 CSF Neutrophils 88 CSF Lymphocytes 4 CSF Monocytes % 8 CSF Glucose CSF Total Protein CSF Mening/Enceph PCR See Note 07/10/20 07/10/20 07/10/20 05:37 05:37 05:37 WBC 7.5 RBC 3.19 L Hgb 11.6 L Hct 32.6 L MCV 102.2 H D MCH 36.4 H MCHC 35.6 H RDW 12.7 Plt Count 257 MPV 11.8 Immature Gran % (Auto) 0.4 Neut % (Auto) 73.3 H Lymph % (Auto) 15.4 L [place] % (Auto) 10.3 Eos % (Auto) 0.3 Baso % (Auto) 0.3 Lymph # (Auto) 1.2 [place] # (Auto) 0.8 Eos # (Auto) 0.0 Baso # (Auto) 0.0 Abs Immat Gran (auto) 0.03 Absolute Neuts (auto) 5.5 Absolute Nucleated RBC 0.000 Nucleated RBC % (auto) 0.0 Sodium 130 L Potassium 2.8 L Chloride 98 Carbon Dioxide 21 L Anion Gap 14 BUN 9 Creatinine 0.78 Estim Creat Clear Calc 72.4 Estimated GFR > 60 Fasting Glucose 175 H Calcium 8.3 L Phosphorus Magnesium 2.0 Troponin I High Sens Urine Color Urine Appearance Urine pH Ur Specific [place] Urine Protein Urine Glucose (UA) Urine Ketones Urine Blood Urine Nitrite Ur Leukocyte Esterase Urine RBC Urine WBC Ur Squamous Epith Cells Urine Bacteria CSF Tube Number CSF Volume CSF Appearance CSF Color CSF WBC CSF RBC CSF Neutrophils CSF Lymphocytes CSF Monocytes % CSF Glucose CSF Total Protein CSF Mening/Enceph PCR 07/10/20 05:37 WBC RBC Hgb Hct MCV MCH MCHC RDW Plt Count MPV Immature Gran % (Auto) Neut % (Auto) Lymph % (Auto) [place] % (Auto) Eos % (Auto) Baso % (Auto) Lymph # (Auto) [place] # (Auto) Eos # (Auto) Baso # (Auto) Abs Immat Gran (auto) Absolute Neuts (auto) Absolute Nucleated RBC Nucleated RBC % (auto) Sodium Potassium Chloride Carbon Dioxide Anion Gap BUN Creatinine Estim Creat Clear Calc Estimated GFR Fasting Glucose Calcium Phosphorus 3.0 Magnesium Troponin I High Sens Urine Color Urine Appearance Urine pH Ur Specific [place] Urine Protein Urine Glucose (UA) Urine Ketones Urine Blood Urine Nitrite Ur Leukocyte Esterase Urine RBC Urine WBC Ur Squamous Epith Cells Urine Bacteria CSF Tube Number CSF Volume CSF Appearance CSF Color CSF WBC CSF RBC CSF Neutrophils CSF Lymphocytes CSF Monocytes % CSF Glucose CSF Total Protein CSF Mening/Enceph PCR Microbiology Microbiology Results: Microbiology 07/09/20 14:49 Cerebrospinal Fluid Gram Stain - Final 07/09/20 14:49 Cerebrospinal Fluid CSF Examination - Final 07/09/20 14:49 Cerebrospinal Fluid Gross Specimen Examination - Final 07/09/20 14:49 Cerebrospinal Fluid CSF Culture - Preliminary No growth after 1 day 07/09/20 10:41 Blood - Venous Blood Culture - Preliminary Progress Note: A&P Time Spent With Patient Total time spent with greater than 50% in coordination of care (as documented) at patient's floor/unit and/or counseling patient:: 0
--- NOTE | 2020-07-10 13:06 | PC.NURSE ---
UNREMARKABLE SHIFT PT TO TRANSFER TO MEDICAL FLOOR VSS LABS REPORTED TO MD ATE WELL NO BM VOIDS QS SKIN WNL NO PRN MEDS GIVEN PRECEDEX STOPPED THIS AM. PT HAS BEEN VERY TALKATIVE WIT SITTER DENIES SI
--- NOTE | 2020-07-10 14:27 | MHC.CM.PN ---
ICU CM Note Female 54 DX Intoxication. Pt lives w father and son. She is independent all functional mobility. DP home no services. Transport, private vs shuttle. CM will follow.
--- NOTE | 2020-07-10 15:50 | MHC.CARE ---
Addendum entered by RACHELLE Salvador 07/10/20 21:39: Update: Patient has been moved to [place] [id number]. CARE team spoke to [facility] staff to confirm plan for patient as follows: Patient will need a crisis eval from [facility] once medically cleared. If it is determined that patient does not need inpatient level of care and is cleared by [facility], CARE team will then offer other resources and supports to patient as appropriate. CARE team is still monitoring case but delaying any offers of referrals as discharge plan is pending crisis eval. Patient is still not appropriate to meet with at this time due to medical status. Original Note: CARE team received a consult from case management to meet with this patient. Were already monitoring patient from ICU to potentially meet with when medically cleared if indicated. CARE team called [place] [id number] and spoke to nurse. Patient recently transferred from ICU to [place] [id number] and is not likely to be medically cleared this evening. Has continuing medical needs. Made plan to check on patient's progress tomorrow to determine readiness to meet.
--- NOTE | 2020-07-10 17:26 | P.EN_ITS ---
Event Note Event Note: seen and evaluated this afternoon Depressed, stressed, broke into tears Reports drinking heavily and smoking for increasing stress from at home Noticed to have prolonged QTC, transfer to [facility] for cardiac monitoring for now potassium 2.8, to give replacement Monitor BMP to get care team involved Cardiology to follow the patient regarding prolonged QTC and abnormal echo
[2020-07-10] MEDS: Potassium Chloride ER 20 MEQ TAB.ER.PRT 60 MEQ PO ×2 (18:24→21:00)
[2020-07-10] MEDS: Loperamide HCl 2 MG CAPSULE PO (20:58)
[2020-07-10] MEDS: Calcium Carbonate 750 MG TAB.CHEW PO (21:00)
[2020-07-11] MEDS: 0.9 % Sodium Chloride Flush 3 ML SYRINGE IVFLUSH ×3 (00:01→13:05)
[2020-07-11] MEDS: Morphine Sulfate 2 MG/ML CARTRIDGE 0.5 MG IVPUSH (01:58)
[2020-07-11] MEDS: diphenhydrAMINE HCL 50 MG/ML VIAL 12.5 MG IVPUSH (01:59)
[2020-07-11 03:04] VITALS: BP 150/85; PULSE 81; RESP 19; TEMP 36.7; O2SAT 96
[2020-07-11] MEDS: Calcium Carbonate 750 MG TAB.CHEW PO (05:49)
[2020-07-11] MEDS: LORazepam 2 MG/ML VIAL 1 MG IVPUSH (05:58)
[2020-07-11 06:53] LABS: MANUAL DIFF FLAG NO
[2020-07-11 07:14] LABS: Basophils Absolute Auto 0.1 X10*3/uL (0.0-0.2); Basophils Percent Auto 0.7 % (0-2); Eosinophils Absolute Auto 0.1 X10*3/uL (0.0-0.4); Eosinophils Percent Auto 0.9 % (0-4); Hematocrit 35.5 % (37-47); Hemoglobin 11.7 g/dl (12.0-16.0); Imm Gran Abs Auto 0.04 X10*3/uL (0.00-0.03); Imm Gran Pct Auto 0.5 % (0.0-0.4); Lymphocytes Absolute Auto 2.1 X10*3/uL (1.2-4.9); Lymphocytes Percent Auto 24.3 % (20-40); Mean Corpuscular Hemoglobin 35.1 pg (27.0-33.0); Mean Corpuscular Volume 106.6 fL (80-98); Mean Platelet Volume 12.2 fL (9.4-12.3); Monocytes Absolute Auto 0.9 X10*3/uL (0.1-1.2); Neutrophils Absolute Auto 5.3 X10*3/uL (2.0-8.3); Neutrophils Percent Auto 62.6 % (45-73); Platelet Count 261 X10*3/uL (160-400); Red Blood Count 3.33 X10*6/uL (4.20-5.50); Red Cell Distribution Width 13.4 % (11.0-16.0); White Blood Count 8.5 X10*3/uL (4.8-10.8)
[2020-07-11 07:37] LABS: Magnesium 1.8 mg/dL (1.6-2.6)
[2020-07-11 07:57] VITALS: BP 140/87; PULSE 81; RESP 20; TEMP 36.7; O2SAT 98
[2020-07-11 08:00] VITALS: BMI 23.8
--- NOTE | 2020-07-11 08:00 | ECG_ITS ---
Test Reason : Follow up QTc prolongation Blood Pressure : / mmHG Vent. Rate : 086 BPM Atrial Rate : 086 BPM P-R Int : 140 ms QRS Dur : 076 ms QT Int : 422 ms P-R-T Axes : 061 080 179 degrees QTc Int : 504 ms Normal sinus rhythm Possible Left atrial enlargement ST & Marked T wave abnormality, consider anterolateral ischemia Prolonged QT Abnormal ECG Heart rate has increased Referred By: Fiona Malone Electronically Signed By:KANDI GOODWIN MD
[2020-07-11 08:19] LABS: Anion Gap 14 (12-20); Blood Urea Nitrogen 9 mg/dL (9-16); Calcium 8.7 mg/dL (8.4-10.2); Carbon Dioxide 20 mmol/L (22-29); Chloride 102 mmol/L (96-108); Creatinine Clr Calc Pharmacy 71.5; Estimated Glomerular Filt Rate > 60; Glucose Random 104 mg/dL (60-115); Potassium 4.7 mmol/l (3.3-5.1); Sodium 131 mmol/L (135-145)
[2020-07-11] MEDS: PHENobarbitaL sodium 130 MG/ML VIAL 274 MG IM (09:10)
[2020-07-11] MEDS: Potassium Chloride ER 20 MEQ TAB.ER.PRT 60 MEQ PO (09:14)
[2020-07-11] MEDS: Magnesium Sulfate/H2O 2 GM/50 ML PIGGYBACK IV (09:48)
[2020-07-11 11:33] VITALS: BP 135/89; PULSE 80; RESP 18; TEMP 37; O2SAT 99
[2020-07-11] MEDS: PHENobarbitaL sodium 130 MG/ML VIAL 205 MG IM ×2 (13:04→16:30)
--- NOTE | 2020-07-11 15:02 | P.PNIM_ITS ---
Subjective Subjective Date of Service: 07/11/20 Interval History: the patient was seen and evaluated this morning Laying in bed, feels comfortable Denies any fever, chills or shortness of breath Had a rough night requiring morphine and Ativan to calm. Started on phenobarbital protocol for alcohol withdrawal at this morning. Feels better after 1st dose Review of Systems Review of Systems: Yes all other systems are reviewed and are negative Physical Exam Vital Signs: Vital Signs: Vital Signs Temp Pulse Resp BP Pulse Ox 07/11/20 11:33 98.6 F 80 18 135/89 99 07/11/20 07:57 98.1 F 81 20 140/87 H 98 07/11/20 03:04 98.0 F 81 19 150/85 H 96 07/10/20 23:05 98.0 F 97 19 155/92 H 98 07/10/20 20:38 100.0 F 99 18 159/99 H 93 07/10/20 15:11 97.6 F 88 18 147/82 H 99 Body Mass Index 23.8 Constitutional : Alert, oriented, mildly anxious Neck : Normal inspection, Supple Cardiovascular : RRR, S1 S2, no lower extremity edema Respiratory : Good bilateral air entry, no crackles, wheezes or rhonchi Gastrointestinal: soft, lax, Normal bowel sounds, Non tender Skin : Warm/Dry, No rash Neurological : Alert & oriented x3, No focal deficit, anxious Objective Data Current Medications Generic Name Dose Route Start Last Admin Trade Name Freq PRN Reason Stop Dose Admin Calcium Carbonate 750 mg 07/10/20 18:19 07/11/20 05:49 Calcium Carbonate 750 Mg Tab.Chew PO 750 mg Q4H PRN Administration Nausea Loperamide HCl 2 mg 07/10/20 18:19 07/10/20 20:58 Loperamide Hcl 2 Mg Capsule PO 2 mg Q4H PRN Administration Diarrhea Medication 1 each 07/11/20 09:00 No Benzodiazepines MISCELLANE DAILY SELENA Protocol Phenobarbital 45 mg 07/12/20 09:00 Phenobarbital 15 Mg Tablet PO 07/13/20 21:01 BID SELENA Protocol Phenobarbital 15 mg 07/14/20 09:00 Phenobarbital 15 Mg Tablet PO 07/15/20 21:01 BID SELENA Protocol Phenobarbital 15 mg 07/16/20 09:00 Phenobarbital 15 Mg Tablet PO 07/17/20 09:01 DAILY SELENA Protocol Sodium Chloride 3 ml 07/09/20 16:00 07/11/20 13:05 0.9 % Sodium Chloride Flush 3 Ml Syringe IVFLUSH 3 ml [facility] Administration Labs CBC & Chem 7: 07/11/20 06:08 07/11/20 06:08 Microbiology Microbiology Results: Microbiology 07/09/20 10:42 Blood - Venous Blood Culture - Preliminary No growth after 48 hours. 07/09/20 14:49 Cerebrospinal Fluid Gram Stain - Final 07/09/20 14:49 Cerebrospinal Fluid CSF Examination - Final 07/09/20 14:49 Cerebrospinal Fluid Gross Specimen Examination - Final 07/09/20 14:49 Cerebrospinal Fluid CSF Culture - Preliminary No growth after 2 days 07/09/20 10:41 Blood - Venous Blood Culture - Preliminary Assessment and Plan (1) Encephalopathy: Status: Acute (2) Prolonged QT interval: Status: Acute (3) Altered mental status: Status: Acute (4) Abnormal ECG: Status: Acute (5) Alcoholism: Status: Acute Assessment and Plan: a 54 years old lady with PMH of alcoholism, mild alcoholic hepatitis among others who presented to the hospital with altered mentation and suicidal ideation. Alcohol abuse Alcohol withdrawal Started on phenobarbital protocol Care team evaluation Interested in quitting Hyponatremia Improved from 124-130 Continue to monitor and encourage oral intake Prolonged QTC Electrolytes corrected of magnesium and potassium Repeated EKG showed QTC 470 On heart monitoring at this point takotsubo cardiomyopathy Abnormal EKG Showing T-wave inversion in lateral leads No chest pain reported Echo showing changes suggestive of takotsubo, cannot rule out myocardial disease To get cardiology evaluation Chronic diarrhea uses Imodium as needed Altered mentation Likely secondary to alcohol abuse CSF studies showing elevated protein Pending her CSF PCR Negative encephalitis panel Suicidal ideation at presentation while intoxicated denies any suicidal ideation at this point To be followed by N postop blood culture One bottle growing gram-positive cocci and rods Likely contaminant, Pending final sensitivity DVT PPX Lovenox
[2020-07-11 16:00] VITALS: BP 161/93; PULSE 94; RESP 18; TEMP 36.7; O2SAT 100
[2020-07-11] MEDS: Enoxaparin Sodium 40 MG/0.4 ML SYRINGE SUBCUT (16:31)
[2020-07-11 20:00] VITALS: PULSE 89; TEMP 37; O2SAT 99
[2020-07-11 20:39] VITALS: BP 116/79; RESP 18
[2020-07-12] VITALS (8 sets, daily range): BP systolic 112–173; BP diastolic 72–95; PULSE 16–91; RESP 18–19; TEMP 36.1–37.3; O2SAT 98–100; BMI 24.2
[2020-07-12] MEDS: 0.9 % Sodium Chloride Flush 3 ML SYRINGE IVFLUSH ×4 (02:05→21:12)
[2020-07-12] MEDS: PHENobarbitaL 15 MG TABLET 45 MG PO ×2 (07:34→21:12)
[2020-07-12 08:09] LABS: Alanine Aminotransferase 168 U/L (0-31); Albumin Level 4.1 g/dL (3.5-5.0); Alkaline Phosphatase 106 U/L (39-117); Anion Gap 16 (12-20); Aspartate Amino Transferase 173 U/L (5-31); Bilirubin Direct 0.3 mg/dL (0.0-0.5); Bilirubin Total 0.6 mg/dL (0.0-1.0); Blood Urea Nitrogen 7 mg/dL (9-16); Calcium 8.8 mg/dL (8.4-10.2); Carbon Dioxide 18 mmol/L (22-29); Chloride 102 mmol/L (96-108); Creatinine Clr Calc Pharmacy 70.6; Estimated Glomerular Filt Rate > 60; Glucose Random 113 mg/dL (60-115); Potassium 4.5 mmol/l (3.3-5.1); Sodium 131 mmol/L (135-145); Total Protein 6.4 g/dL (6.5-8.0)
--- NOTE | 2020-07-12 12:54 | PM.PNCARD ---
Subjective Subjective Interval history: patient was seen and examined. No specific complaints. She states that she feels okay. Review of Systems Review of Systems Cardiac, no clear anginal-type symptoms but she did have some chest pain couple of days ago and not clear what that is; not short of breath; no dizzy spells or syncopal episodes; remainder of the 10 system review is negative. Physical Exam Vital Signs: Vital Signs Temp Pulse Resp BP Pulse Ox 07/12/20 12:00 97 F 84 19 128/74 98 07/12/20 07:26 98.6 F 83 18 116/76 99 07/12/20 04:00 97.9 F 76 18 123/85 07/12/20 00:06 97.4 F 16 L 18 116/81 98 07/11/20 20:39 18 116/79 07/11/20 20:00 98.6 F 89 99 07/11/20 16:00 98.0 F 94 18 161/93 H 100 Body Mass Index 24.2 Comfortable, no distress No pallor, icterus or cyanosis HEENT -unremarkable JVD- normal Cardiac- normal heart sounds, no murmurs, gallops or rubs, normal PMI Respiratory-normal breath sounds bilaterally, no crackles, no wheeze Abdomen- soft, nontender Neuro- alert and oriented Lower extremities- no significant edema, warm well perfused Results Labs and Meds Result diagrams: 07/11/20 06:08 07/12/20 06:37 Lab results: Laboratory Results - last 24 hr 07/12/20 06:37 Sodium 131 L Potassium 4.5 Chloride 102 Carbon Dioxide 18 L Anion Gap 16 BUN 7 L Creatinine 0.80 Estim Creat Clear Calc 70.6 Estimated GFR > 60 Random Glucose 113 Calcium 8.8 Total Bilirubin 0.6 Direct Bilirubin 0.3 AST 173 H ALT 168 H Alkaline Phosphatase 106 Total Protein 6.4 L Albumin 4.1 EKG Interpretation EKG Comments: EKG noted. Diffuse T-wave inversions. Progress Note: A&P Assessment and plan (1) Stress-induced cardiomyopathy: Status: Acute (2) Alcoholism: Status: Acute Assessment and Plan: EKG and echocardiogram findings noted. She does not have any prior cardiac history at all. Suspected to be all stress-induced cardiomyopathy, but underlying CAD cannot be completely excluded. She can ambulate in the hallway and if she is completely symptom free from cardiac, then potentially discharge home. We can get a repeat echocardiogram in a couple of weeks and arrange cardiac follow-up. If there is no improvement in cardiac function, then will require ischemia workup. If blood pressure tolerates, then very low-dose beta-blockers. Fall Risk Details Current Medications: Current Medications Generic Name Dose Route Start Last Admin Trade Name Freq PRN Reason Stop Dose Admin Calcium Carbonate 750 mg 07/10/20 18:19 07/11/20 05:49 Calcium Carbonate 750 Mg Tab.Chew PO 750 mg Q4H PRN Administration Nausea Enoxaparin Sodium 40 mg 07/11/20 16:00 07/11/20 16:31 Enoxaparin Sodium 40 Mg/0.4 Ml Syringe SUBCUT 40 mg Q24H SELENA Administration Loperamide HCl 2 mg 07/10/20 18:19 07/10/20 20:58 Loperamide Hcl 2 Mg Capsule PO 2 mg Q4H PRN Administration Diarrhea Medication 1 each 07/11/20 09:00 No Benzodiazepines MISCELLANE DAILY SELENA Protocol Phenobarbital 45 mg 07/12/20 09:00 07/12/20 07:34 Phenobarbital 15 Mg Tablet PO 07/13/20 21:01 45 mg BID SELENA Administration Protocol Phenobarbital 15 mg 07/14/20 09:00 Phenobarbital 15 Mg Tablet PO 07/15/20 21:01 BID SELENA Protocol Phenobarbital 15 mg 07/16/20 09:00 Phenobarbital 15 Mg Tablet PO 07/17/20 09:01 DAILY SELENA Protocol Sodium Chloride 3 ml 07/09/20 16:00 07/12/20 07:34 0.9 % Sodium Chloride Flush 3 Ml Syringe IVFLUSH 3 ml QSHIFT SELENA Administration Time Spent With Patient Time: Total time spent is greater than 50% in coordination of care (as documented) at patient's floor/unit and/or counseling patient: Time with patient: 15 - 24 minutes
--- NOTE | 2020-07-12 14:17 | P.PNIM_ITS ---
Subjective Subjective Interval History: the patient was seen and evaluated this morning Laying in bed, feels comfortable Denies any fever, chills or shortness of breath Had a quite night feels sleepy and tired Physical Exam Vital Signs: Vital Signs: Vital Signs Temp Pulse Resp BP Pulse Ox 07/12/20 12:00 97 F 84 19 128/74 98 07/12/20 07:26 98.6 F 83 18 116/76 99 07/12/20 04:00 97.9 F 76 18 123/85 07/12/20 00:06 97.4 F 16 L 18 116/81 98 07/11/20 20:39 18 116/79 07/11/20 20:00 98.6 F 89 99 07/11/20 16:00 98.0 F 94 18 161/93 H 100 Body Mass Index 24.2 Constitutional : Alert, oriented, feels sleepy and tired Neck : Normal inspection, Supple Cardiovascular : RRR, S1 S2, no lower extremity edema Respiratory : Good bilateral air entry, no crackles, wheezes or rhonchi Gastrointestinal: soft, lax, Normal bowel sounds, Non tender Skin : Warm/Dry, No rash Neurological : Alert & oriented x3, No focal deficit, anxious Objective Data Current Medications Generic Name Dose Route Start Last Admin Trade Name Freq PRN Reason Stop Dose Admin Calcium Carbonate 750 mg 07/10/20 18:19 07/11/20 05:49 Calcium Carbonate 750 Mg Tab.Chew PO 750 mg Q4H PRN Administration Nausea Enoxaparin Sodium 40 mg 07/11/20 16:00 07/11/20 16:31 Enoxaparin Sodium 40 Mg/0.4 Ml Syringe SUBCUT 40 mg Q24H SELENA Administration Loperamide HCl 2 mg 07/10/20 18:19 07/10/20 20:58 Loperamide Hcl 2 Mg Capsule PO 2 mg Q4H PRN Administration Diarrhea Medication 1 each 07/11/20 09:00 No Benzodiazepines MISCELLANE DAILY SELENA Protocol Phenobarbital 45 mg 07/12/20 09:00 07/12/20 07:34 Phenobarbital 15 Mg Tablet PO 07/13/20 21:01 45 mg BID SELENA Administration Protocol Phenobarbital 15 mg 07/14/20 09:00 Phenobarbital 15 Mg Tablet PO 07/15/20 21:01 BID SELENA Protocol Phenobarbital 15 mg 07/16/20 09:00 Phenobarbital 15 Mg Tablet PO 07/17/20 09:01 DAILY [facility] Protocol Sodium Chloride 3 ml 07/09/20 16:00 07/12/20 07:34 0.9 % Sodium Chloride Flush 3 Ml Syringe IVFLUSH 3 ml QSHIFT [facility] Administration Labs CBC & Chem 7: 07/11/20 06:08 07/12/20 06:37 Microbiology Microbiology Results: Microbiology 07/09/20 14:49 Cerebrospinal Fluid Gram Stain - Final 07/09/20 14:49 Cerebrospinal Fluid CSF Examination - Final 07/09/20 14:49 Cerebrospinal Fluid Gross Specimen Examination - Final 07/09/20 14:49 Cerebrospinal Fluid CSF Culture - Final No growth after 3 days. 07/09/20 10:41 Blood - Venous Blood Culture - Preliminary Bacillus species Coagulase-neg Staphyloccocus 07/09/20 10:42 Blood - Venous Blood Culture - Preliminary No growth after 48 hours. Assessment and Plan (1) Encephalopathy: Status: Acute (2) Prolonged QT interval: Status: Acute (3) Altered mental status: Status: Acute (4) Abnormal ECG: Status: Acute (5) Alcoholism: Status: Acute Assessment and Plan: a 54 years old lady with PMH of alcoholism, mild alcoholic hepatitis among others who presented to the hospital with altered mentation and suicidal ideation. Alcohol abuse Alcohol withdrawal improving, still sleepy and tired continue phenobarbital protocol Care team evaluation Interested in quitting Hyponatremia Improved To 131 Continue to monitor and encourage oral intake Prolonged QTC Electrolytes corrected of magnesium and potassium Repeated EKG showed QTC 470 On heart monitoring at this point takotsubo cardiomyopathy stress-induced cardiomyopathy Abnormal EKG ; Showing T-wave inversion in lateral leads Echo showing changes suggestive of takotsubo, cannot rule out myocardial disease Cardiology input appreciated, to repeat echo in 2-4 weeks , outpatient follow- up Start Toprol 12.5 mg daily Chronic diarrhea uses Imodium as needed Altered mentation improved CSF studies showing elevated protein Pending her CSF PCR Negative encephalitis panel Suicidal ideation at presentation while intoxicated denies any suicidal ideation at this point pending evaluation by [facility] postop blood culture One bottle growing gram-positive cocci and rods Likely contaminant, Pending final sensitivity DVT PPX Lovenox
--- NOTE | 2020-07-12 14:49 | MHC.CM.PN ---
RITA contacted [facility] and spoke to Rafaela. She reports they did not receive the pts clinical information that was faxed to them although she confirms the fax machine is in working order. Rafaela provided an alternative fax number [phone]. Records resent to new fax number
[2020-07-12 16:01] LABS: VDRL Qualitative CSF Nonreactive (Nonreactive)
[2020-07-12] MEDS: Metoprolol Succinate ER 12.5 MG HALFTAB.ER.24H PO (17:13)
[2020-07-12] MEDS: Enoxaparin Sodium 40 MG/0.4 ML SYRINGE SUBCUT (17:15)
[2020-07-12 21:17] LABS: HSV 1 DNA, CSF Not Detected (Not Detected); HSV 2 DNA, CSF Not Detected (Not Detected); Specimen Source CSF
[2020-07-13 03:37] VITALS: BP 116/81; PULSE 63; RESP 18; TEMP 36.4; O2SAT 99
[2020-07-13 06:00] VITALS: BMI 24.2
[2020-07-13 07:28] VITALS: BP 145/85; PULSE 79; RESP 18; TEMP 36.7; O2SAT 99
[2020-07-13] MEDS: PHENobarbitaL 15 MG TABLET 45 MG PO (08:38)
[2020-07-13 08:39] VITALS: BP 145/85; PULSE 79
[2020-07-13] MEDS: Metoprolol Succinate ER 12.5 MG HALFTAB.ER.24H PO (08:39)
[2020-07-13] MEDS: 0.9 % Sodium Chloride Flush 3 ML SYRINGE IVFLUSH (08:40)
--- NOTE | 2020-07-13 10:41 | PM.PNCARD ---
Subjective Subjective Interval history: Patient was seen and examined by me. No new complaints. No chest pain or anything else cardiac. Review of Systems Review of Systems Cardiac -ve for angina, shortness of breath, palpitations, dizziness or syncope. Remainder of the 10 system review -ve. Physical Exam Vital Signs: Vital Signs Temp Pulse Resp BP Pulse Ox 07/13/20 08:39 79 145/85 H 07/13/20 07:28 98.0 F 79 18 145/85 H 99 07/13/20 03:37 97.6 F 63 18 116/81 99 07/12/20 23:42 99.2 F 78 19 112/72 98 07/12/20 19:15 98.5 F 91 18 173/95 H 100 07/12/20 17:13 88 142/91 H 07/12/20 16:33 97.0 F 88 18 142/91 H 100 07/12/20 12:00 97 F 84 19 128/74 98 Body Mass Index 24.2 Comfortable, no distress No pallor, icterus or cyanosis HEENT -unremarkable JVD- normal Cardiac- normal heart sounds, no murmurs, gallops or rubs, normal PMI Respiratory-normal breath sounds bilaterally, no crackles, no wheeze Abdomen- soft, nontender Neuro- alert and oriented Lower extremities- no significant edema, warm well perfused Results Labs and Meds Result diagrams: 07/11/20 06:08 07/12/20 06:37 Lab results: Laboratory Results - last 24 hr 07/09/20 07/09/20 14:49 14:49 CSF VDRL Nonreactive CSF Herpes I DNA (PCR) Not Detected CSF Herpes II DNA (PCR) Not Detected Body Source CSF Progress Note: A&P Assessment and plan (1) Stress-induced cardiomyopathy: Status: Acute (2) Alcoholism: Status: Acute Assessment and Plan: EKG and echocardiogram findings noted. She does not have any prior cardiac history at all. Suspected to be all stress-induced cardiomyopathy, but underlying CAD cannot be completely excluded. We can get a repeat echocardiogram in a couple of weeks and arrange cardiac follow-up. If there is no improvement in cardiac function, then will require ischemia workup. Low-dose beta-blockers. Fall Risk Details Current Medications: Current Medications Generic Name Dose Route Start Last Admin Trade Name Freq PRN Reason Stop Dose Admin Calcium Carbonate 750 mg 07/10/20 18:19 07/11/20 05:49 Calcium Carbonate 750 Mg Tab.Chew PO 750 mg Q4H PRN Administration Nausea Enoxaparin Sodium 40 mg 07/11/20 16:00 07/12/20 17:15 Enoxaparin Sodium 40 Mg/0.4 Ml Syringe SUBCUT 40 mg Q24H SELENA Administration Loperamide HCl 2 mg 07/10/20 18:19 07/10/20 20:58 Loperamide Hcl 2 Mg Capsule PO 2 mg Q4H PRN Administration Diarrhea Medication 1 each 07/11/20 09:00 No Benzodiazepines MISCELLANE DAILY SELENA Protocol Metoprolol Succinate 12.5 mg 07/12/20 14:25 07/13/20 08:39 Metoprolol Succinate Er 12.5 Mg Halftab.Er.24h PO 12.5 mg DAILY SELENA Administration Protocol Phenobarbital 45 mg 07/12/20 09:00 07/13/20 08:38 Phenobarbital 15 Mg Tablet PO 07/13/20 21:01 45 mg BID SELENA Administration Protocol Phenobarbital 15 mg 07/14/20 09:00 Phenobarbital 15 Mg Tablet PO 07/15/20 21:01 BID SELENA Protocol Phenobarbital 15 mg 07/16/20 09:00 Phenobarbital 15 Mg Tablet PO 07/17/20 09:01 DAILY SELENA Protocol Sodium Chloride 3 ml 07/09/20 16:00 07/13/20 08:40 0.9 % Sodium Chloride Flush 3 Ml Syringe IVFLUSH 3 ml QSHIFT SELEAN Administration Time Spent With Patient Time: Total time spent is greater than 50% in coordination of care (as documented) at patient's floor/unit and/or counseling patient: Time with patient: 15 - 24 minutes
[2020-07-13 12:00] VITALS: BP 132/86; PULSE 78; RESP 20; TEMP 36.6
--- NOTE | 2020-07-13 12:02 | MHC.CM.PN ---
DP: DC today with private transportation. Pt plans to move in with a friend @ DC.
--- NOTE | 2020-07-13 12:53 | MHC.CM.PN ---
Pt Discharged today with resources provided By [facility]. Pt is arranging for private transportation.
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
== END 2020-07-13 14:10 | disposition home or self-care (01) | DRG 207 ==
LOC: HO.ED 14:42 → HO.ICU 15:54 → HO.S3 07-10 12:55 → HO.IMC 07-10 17:44
PROVIDERS: Physician Assistant Medical; Admitting Provider Anesthesiology; Emergency Provider Emergency Medicine; Visit Provider Student in an Organized Health Care Education/Training Program
DX: I51.81 Takotsubo syndrome (principal); G92 Toxic encephalopathy; R45.851 Suicidal ideations; E87.1 Hypo-osmolality and hyponatremia; K70.10 Alcoholic hepatitis without ascites; F10.239 Alcohol dependence with withdrawal, unspecified; R94.31 Abnormal electrocardiogram [ECG] [EKG]; K52.9 Noninfective gastroenteritis and colitis, unspecified; E83.42 Hypomagnesemia
CPT/HCPCS: 36415; 70120; 70450; 71045; 80048; 80076; 80307; 80320; 81001; 81003; 82140; 82945; 83605; 83690; 83735; 84100; 84157; 84484; 85025; 86592; 87015; 87040; 87070; 87147; 87205; 87529; 89051; 93005; 96365; 96366; 96367; 96375; 96376; 99285; 99291; 99292; G0480; J1200; J1650; J2060; J2270; J2560; J3411; J3475

== ENCOUNTER 2020-08-04 09:57 | Inpatient (IN) | payer OTHER, MEDICAID, SELFPAY ==
[2020-08-04] VITALS (11 sets, daily range): BP systolic 102–136; BP diastolic 57–78; PULSE 90–105; RESP 16–19; TEMP 36.6–38.3; O2SAT 95–99; BMI 26.2; BMI 26.1
--- NOTE | 2020-08-04 | ECG_ITS ---
Test Reason : CHEST PAIN Blood Pressure : / mmHG Vent. Rate : 093 BPM Atrial Rate : 093 BPM P-R Int : 142 ms QRS Dur : 078 ms QT Int : 358 ms P-R-T Axes : 062 068 131 degrees QTc Int : 445 ms Normal sinus rhythm ST & T wave abnormality, consider lateral ischemia Abnormal ECG When compared with ECG of 11-JUL-2020 11:53, T wave inversion no longer evident in Inferior leads T wave inversion less evident in Anterolateral leads QT has shortened Referred By: Yesenia Menchaca Electronically Signed By:KANDI GOODWIN MD
--- NOTE | 2020-08-04 10:38 | ED_ITS ---
HPI - Abdominal Pain General Chief Complaint: Abdominal Pain <ROS Hernandez Last Filed: 08/04/20 16:41> Stated Complaint: ABD PAIN <ROS Hernandez Last Filed: 08/04/20 16:41> Time Seen by Provider: 08/04/20 10:18 <ROS Hernandez Last Filed: 08/04/20 16:41> Source: patient <ROS Hernandez Last Filed: 08/04/20 16:41> Mode of arrival: ambulatory <ROS Hernandez Last Filed: 08/04/20 16:41> Limitations: no limitations <ROS Hernandez Last Filed: 08/04/20 16:41> History of Present Illness HPI narrative: Patient presents to ED for abdominal pain, chills, and fever, with diarrhea since this morning. Patient states no chest pain, coughing, runny nose, or shortness of breath. <ROS Hernandez Last Filed: 08/04/20 16:41> MD elicited complaint: abdominal pain <ROS Hernandez Last Filed: 08/04/20 16:41> Related Data Home Medications: Home Medications Medication Instructions Recorded Confirmed bupropion HCl [Wellbutrin XL] 150 mg PO DAILY 08/05/20 08/05/20 lorazepam 0.5 mg PO BID PRN 08/05/20 08/05/20 Previous Rx's Medication Instructions Recorded metoprolol succinate [Toprol XL] 25 mg PO DAILY #30 tab 07/13/20 <ROS Hernandez Last Filed: 08/04/20 16:41> Allergies/Adverse Reactions: Allergies Allergy/AdvReac Type Severity Reaction Status Date / Time No Known Allergies Allergy Verified 07/10/20 05:35 <ROS Hernandez Last Filed: 08/04/20 16:41> Review of Systems Review of Systems Yes all other systems are reviewed and are negative <ROS Hernandez Last Filed: 08/04/20 16:41> Constitutional: Reports as per HPI, Reports no additional constitutional complaints, Reports chills and Reports fever(s) <ROS Hernandez Last Filed: 08/04/20 16:41> Eyes: Reports as per HPI and Reports no additional eye complaints <ROS Hernandez Last Filed: 08/04/20 16:41> Reports system reviewed and no additional complaints, except as documented and Reports as per HPI <ROS Hernandez Last Filed: 08/04/20 16:41> Cardiovascular: Reports as per HPI and Reports no additional cardiovascular complaints <ROS Hernandez Last Filed: 08/04/20 16:41> Respiratory: Reports as per HPI and Reports no additional respiratory complaints <ROS Hernandez Last Filed: 08/04/20 16:41> Gastrointestinal: Reports as per HPI, Reports no additional gastrointestinal complaints, Reports abdominal pain and Reports diarrhea <ROS Hernandez Last Filed: 08/04/20 16:41> Genitourinary: Reports no additional female genitourinary complaints and Reports as per HPI <ROS Hernandez Last Filed: 08/04/20 16:41> Musculoskeletal: Reports no additional musculoskeletal complaints and Reports as per HPI <ROS Hernandez Last Filed: 08/04/20 16:41> Reports system reviewed and no additional complaints, except as documented and Reports as per HPI <ROS Hernandez - Last Filed: 08/04/20 16:41> Psychiatric: Reports no additional psychiatric complaints and Reports as per HPI <ROS Hernandez - Last Filed: 08/04/20 16:41> Physical Exam Vital Signs: Vital Signs: Last Vital Signs Temp 98.2 F 08/05/20 08:00 Pulse 75 08/05/20 11:34 Resp 18 08/05/20 11:34 BP 112/67 08/05/20 11:34 Pulse Ox 100 08/05/20 11:34 Body Mass Index 26.2 <ROS Hernandez - Last Filed: 08/04/20 16:41> Vital Signs: Last Vital Signs Temp 98.2 F 08/05/20 08:00 Pulse 75 08/05/20 11:34 Resp 18 08/05/20 11:34 BP 112/67 08/05/20 11:34 Pulse Ox 100 08/05/20 11:34 Body Mass Index 26.2 <Haris Guidry MD - Last Filed: 08/05/20 13:19> Const: General: alert, Physically active and acute distress <Hua Mario [facility] Last Filed: 08/04/20 16:41> HENMT: Head: Yes normal to inspection and Yes No palpable skull fracture present <Huachristina Martin [facility] Last Filed: 08/04/20 16:41> Eyes: General: appearance normal, both eyes and all related structures <Hua Mario [facility] Last Filed: 08/04/20 16:41> Visual Anderson: normal visual anderson by confrontation <Hua Mario [facility] Last Filed: 08/04/20 16:41> Neck: Neck: Yes normal visual inspection, Yes full ROM, Yes no lymphadenopathy, Yes no meningeal signs, Yes trachea midline and No tender <Hua Mario [facility] Last Filed: 08/04/20 16:41> Chest: Chest palpation & inspection: normal inspection of the chest, normal palpation of entire chest wall and no localized rib tenderness <Hua Jefe luis miguel CT Last Filed: 08/04/20 16:41> Resp: Effort & Inspection: normal respiratory effort and able to speak in complete sentences <Hua Mario [facility] Last Filed: 08/04/20 16:41> Cardio: Jugular venous distension: no JVD <Hua Mario [facility] Last Filed: 08/04/20 16:41> Heart sounds: S1 normal heart sound present and S2 normal heart sound present <Hua Mario [facility] Last Filed: 08/04/20 16:41> GI: Inspection: Yes normal to inspection <Hua Mario [facility] Last Filed: 08/04/20 16:41> Palpation (GI): Soft to palpation, not firm, Tenderness to palpation present (GI) in the LLQ and in the RLQ, no guarding and not rigid <Hua Mario [facility] Last Filed: 08/04/20 16:41> : General: No CVA tenderness and Yes no CVA tenderness <Hua Mario [facility] Last Filed: 08/04/20 16:41> Back/Spine/Pelvis: Back: no CVA tenderness, No CVA tenderness and No back tenderness <Hua Mario, [facility] Last Filed: 08/04/20 16:41> Skin: General skin exam: no rashes or lesions noted <ROS Hernandez Last Filed: 08/04/20 16:41> Neuro: General: gait normal, no meningeal signs and CN's II-XI intact bilaterally <ROS Hernandez Last Filed: 08/04/20 16:41> Cranial nerves: Yes CN's II-XII intact bilaterally <ROS Hernandez - Last Filed: 08/04/20 16:41> Psych: Appearance: grossly normal, well kempt and not disheveled <ROS Hernandez - Last Filed: 08/04/20 16:41> Course Course Course Narrative: patient will have labs, fluids, Tylenol and most likely imaging of the belly to rule out any diverticulitis exacerbation. Patient states she has an a mputation in [place] last month and was admitted for septic diverticulitis. <ROS Hernandez Last Filed: 08/04/20 16:41> I have reviewed the chart <Haris Guidry MD - Last Filed: 08/05/20 13:19> Reevaluation(s) Reevaluation #1: patient lactic acid came back positive stool no source of infection. Patient will be sent for abdominal CT scan to rule out diverticulitis. <ROS Hernandez Last Filed: 08/04/20 16:41> Time: 12:12 <ROS Hernandez - Last Filed: 08/04/20 16:41> Reevaluation #2: patient abdominal CT scan came back positive for colitis. Patient started on IV antibiotics. Case presented to hospitalist for admission which was accepted. <ROS Hernandez Last Filed: 08/04/20 16:41> Time: 13:30 <ROS Hernandez - Last Filed: 08/04/20 16:41> MDM - Abdominal Pain MDM Narrative Medical decision making narrative: colitis. <ROS Hernandez Last Filed: 08/04/20 16:41> Lab Data Result diagrams: : 08/05/20 05:48 08/05/20 05:48 <ROS Hernandez Last Filed: 08/04/20 16:41> Labs: Lab Results 11/17/20 11/17/20 11/17/20 Range/Units 10:58 10:58 10:58 WBC 16.5 H (4.8-10.8) X10*3/uL RBC 3.42 L (4.20-5.50) X10*6/uL Hgb 12.1 (12.0-16.0) g/dl Hct 36.3 L (37-47) % MCV 106.1 H (80-98) fL MCH 35.4 H (27.0-33.0) pg MCHC 33.3 (31.0-35.0) g/dl RDW 13.0 (11.0-16.0) % Plt Count 260 (160-400) X10*3/uL MPV 12.4 H (9.4-12.3) fL Immature Gran % (Auto) 0.5 H (0.0-0.4) % Neut % (Auto) 88.0 H (45-73) % Lymph % (Auto) 5.0 L (20-40) % [place] % (Auto) 6.1 (2-11) % Eos % (Auto) 0.1 (0-4) % Baso % (Auto) 0.3 (0-2) % Lymph # (Auto) 0.8 L (1.2-4.9) X10*3/uL [place] # (Auto) 1.0 (0.1-1.2) X10*3/uL Eos # (Auto) 0.0 (0.0-0.4) X10*3/uL Baso # (Auto) 0.1 (0.0-0.2) X10*3/uL Abs Immat Gran (auto) 0.08 H (0.00-0.03) X10*3/uL Absolute Neuts (auto) 14.5 H (2.0-8.3) X10*3/uL Absolute Nucleated RBC 0.000 (0.0-0.012) X10*3/uL Nucleated RBC % (auto) 0.0 (0.0-0.2) /100WBC PT 12.8 (10.8-13.0) SEC INR 1.1 (0.9-1.1) APTT 31.3 (24.1-38.0) SEC Sodium 132 L (135-145) mmol/L Potassium 4.1 (3.3-5.1) mmol/l Chloride 100 (96-108) mmol/L Carbon Dioxide 19 L (22-29) mmol/L Anion Gap 17 (12-20) BUN 6 L (9-16) mg/dL Creatinine 0.78 (0.5-1.4) mg/dL Estim Creat Clear Calc 74.1 Estimated GFR > 60 Random Glucose 112 (60-115) mg/dL Lactic Acid (0.5-2.0) mmol/L Lactic Acid Fup @ 2Hr (0.5-2.0) mmol/L Calcium 8.6 (8.4-10.2) mg/dL Total Bilirubin 0.6 (0.0-1.0) mg/dL Direct Bilirubin 0.2 (0.0-0.5) mg/dL AST 23 D (5-31) U/L ALT 22 (0-31) U/L Alkaline Phosphatase 64 D (39-117) U/L Troponin I High Sens (<3.5-17.0) ng/L Total Protein 6.4 L (6.5-8.0) g/dL Albumin 4.0 (3.5-5.0) g/dL Lipase 17 (8-78) U/L Urine Color Urine Appearance Urine pH (5.0-8.0) Ur Specific [place] (1.005-1.025) Urine Protein (NEG-TRACE) MG/DL Urine Glucose (UA) (NEG) MG/DL Urine Ketones (NEG) MG/DL Urine Blood (NEG) Urine Nitrite (NEG) Ur Leukocyte Esterase (NEG) Stool Leukocytes, Qual (NEGATIVE) C. difficile Toxin A&B (Negative) C. difficile Antigen (Negative) C. difficile Interpret COVID-19 ([facility]) (Negative) COVID-19 Clin Com 08/04/20 08/04/20 08/04/20 Range/Units 10:58 13:20 14:19 WBC (4.8-10.8) X10*3/uL RBC (4.20-5.50) X10*6/uL Hgb (12.0-16.0) g/dl Hct (37-47) % MCV (80-98) fL MCH (27.0-33.0) pg MCHC (31.0-35.0) g/dl RDW (11.0-16.0) % Plt Count (160-400) X10*3/uL MPV (9.4-12.3) fL Immature Gran % (Auto) (0.0-0.4) % Neut % (Auto) (45-73) % Lymph % (Auto) (20-40) % [place] % (Auto) (2-11) % Eos % (Auto) (0-4) % Baso % (Auto) (0-2) % Lymph # (Auto) (1.2-4.9) X10*3/uL [place] # (Auto) (0.1-1.2) X10*3/uL Eos # (Auto) (0.0-0.4) X10*3/uL Baso # (Auto) (0.0-0.2) X10*3/uL Abs Immat Gran (auto) (0.00-0.03) X10*3/uL Absolute Neuts (auto) (2.0-8.3) X10*3/uL Absolute Nucleated RBC (0.0-0.012) X10*3/uL Nucleated RBC % (auto) (0.0-0.2) /100WBC PT (10.8-13.0) SEC INR (0.9-1.1) APTT (24.1-38.0) SEC Sodium (135-145) mmol/L Potassium (3.3-5.1) mmol/l Chloride (96-108) mmol/L Carbon Dioxide (22-29) mmol/L Anion Gap (12-20) BUN (9-16) mg/dL Creatinine (0.5-1.4) mg/dL Estim Creat Clear Calc Estimated GFR Random Glucose (60-115) mg/dL Lactic Acid 2.3 H* (0.5-2.0) mmol/L Lactic Acid Fup @ 2Hr 0.9 (0.5-2.0) mmol/L Calcium (8.4-10.2) mg/dL Total Bilirubin (0.0-1.0) mg/dL Direct Bilirubin (0.0-0.5) mg/dL AST (5-31) U/L ALT (0-31) U/L Alkaline Phosphatase (39-117) U/L Troponin I High Sens (<3.5-17.0) ng/L Total Protein (6.5-8.0) g/dL Albumin (3.5-5.0) g/dL Lipase (8-78) U/L Urine Color YELLOW Urine Appearance CLEAR Urine pH 6.0 (5.0-8.0) Ur Specific [place] <= 1.005 (1.005-1.025) Urine Protein NEG (NEG-TRACE) MG/DL Urine Glucose (UA) NEG (NEG) MG/DL Urine Ketones NEG (NEG) MG/DL Urine Blood NEG (NEG) Urine Nitrite NEG (NEG) Ur Leukocyte Esterase NEG (NEG) Stool Leukocytes, Qual (NEGATIVE) C. difficile Toxin A&B (Negative) C. difficile Antigen (Negative) C. difficile Interpret COVID-19 ([facility]) (Negative) COVID-19 Clin Com 08/04/20 08/04/20 08/04/20 Range/Units 17:05 17:05 17:16 WBC (4.8-10.8) X10*3/uL RBC (4.20-5.50) X10*6/uL Hgb (12.0-16.0) g/dl Hct (37-47) % MCV (80-98) fL MCH (27.0-33.0) pg MCHC (31.0-35.0) g/dl RDW (11.0-16.0) % Plt Count (160-400) X10*3/uL MPV (9.4-12.3) fL Immature Gran % (Auto) (0.0-0.4) % Neut % (Auto) (45-73) % Lymph % (Auto) (20-40) % [place] % (Auto) (2-11) % Eos % (Auto) (0-4) % Baso % (Auto) (0-2) % Lymph # (Auto) (1.2-4.9) X10*3/uL [place] # (Auto) (0.1-1.2) X10*3/uL Eos # (Auto) (0.0-0.4) X10*3/uL Baso # (Auto) (0.0-0.2) X10*3/uL Abs Immat Gran (auto) (0.00-0.03) X10*3/uL Absolute Neuts (auto) (2.0-8.3) X10*3/uL Absolute Nucleated RBC (0.0-0.012) X10*3/uL Nucleated RBC % (auto) (0.0-0.2) /100WBC PT (10.8-13.0) SEC INR (0.9-1.1) APTT (24.1-38.0) SEC Sodium (135-145) mmol/L Potassium (3.3-5.1) mmol/l Chloride (96-108) mmol/L Carbon Dioxide (22-29) mmol/L Anion Gap (12-20) BUN (9-16) mg/dL Creatinine (0.5-1.4) mg/dL Estim Creat Clear Calc Estimated GFR Random Glucose (60-115) mg/dL Lactic Acid (0.5-2.0) mmol/L Lactic Acid Fup @ 2Hr (0.5-2.0) mmol/L Calcium (8.4-10.2) mg/dL Total Bilirubin (0.0-1.0) mg/dL Direct Bilirubin (0.0-0.5) mg/dL AST (5-31) U/L ALT (0-31) U/L Alkaline Phosphatase (39-117) U/L Troponin I High Sens 3.9 D (<3.5-17.0) ng/L Total Protein (6.5-8.0) g/dL Albumin (3.5-5.0) g/dL Lipase (8-78) U/L Urine Color Urine Appearance Urine pH (5.0-8.0) Ur Specific [place] (1.005-1.025) Urine Protein (NEG-TRACE) MG/DL Urine Glucose (UA) (NEG) MG/DL Urine Ketones (NEG) MG/DL Urine Blood (NEG) Urine Nitrite (NEG) Ur Leukocyte Esterase (NEG) Stool Leukocytes, Qual MOD: 3-9/OIF (NEGATIVE) C. difficile Toxin A&B Positive A (Negative) C. difficile Antigen Positive A (Negative) C. difficile Interpret SEE NOTE COVID-19 ([facility]) (Negative) COVID-19 Clin Com 08/04/20 Range/Units 17:17 WBC (4.8-10.8) X10*3/uL RBC (4.20-5.50) X10*6/uL Hgb (12.0-16.0) g/dl Hct (37-47) % MCV (80-98) fL MCH (27.0-33.0) pg MCHC (31.0-35.0) g/dl RDW (11.0-16.0) % Plt Count (160-400) X10*3/uL MPV (9.4-12.3) fL Immature Gran % (Auto) (0.0-0.4) % Neut % (Auto) (45-73) % Lymph % (Auto) (20-40) % [place] % (Auto) (2-11) % Eos % (Auto) (0-4) % Baso % (Auto) (0-2) % Lymph # (Auto) (1.2-4.9) X10*3/uL [place] # (Auto) (0.1-1.2) X10*3/uL Eos # (Auto) (0.0-0.4) X10*3/uL Baso # (Auto) (0.0-0.2) X10*3/uL Abs Immat Gran (auto) (0.00-0.03) X10*3/uL Absolute Neuts (auto) (2.0-8.3) X10*3/uL Absolute Nucleated RBC (0.0-0.012) X10*3/uL Nucleated RBC % (auto) (0.0-0.2) /100WBC PT (10.8-13.0) SEC INR (0.9-1.1) APTT (24.1-38.0) SEC Sodium (135-145) mmol/L Potassium (3.3-5.1) mmol/l Chloride (96-108) mmol/L Carbon Dioxide (22-29) mmol/L Anion Gap (12-20) BUN (9-16) mg/dL Creatinine (0.5-1.4) mg/dL Estim Creat Clear Calc Estimated GFR Random Glucose (60-115) mg/dL Lactic Acid (0.5-2.0) mmol/L Lactic Acid Fup @ 2Hr (0.5-2.0) mmol/L Calcium (8.4-10.2) mg/dL Total Bilirubin (0.0-1.0) mg/dL Direct Bilirubin (0.0-0.5) mg/dL AST (5-31) U/L ALT (0-31) U/L Alkaline Phosphatase (39-117) U/L Troponin I High Sens (<3.5-17.0) ng/L Total Protein (6.5-8.0) g/dL Albumin (3.5-5.0) g/dL Lipase (8-78) U/L Urine Color Urine Appearance Urine pH (5.0-8.0) Ur Specific [place] (1.005-1.025) Urine Protein (NEG-TRACE) MG/DL Urine Glucose (UA) (NEG) MG/DL Urine Ketones (NEG) MG/DL Urine Blood (NEG) Urine Nitrite (NEG) Ur Leukocyte Esterase (NEG) Stool Leukocytes, Qual (NEGATIVE) C. difficile Toxin A&B (Negative) C. difficile Antigen (Negative) C. difficile Interpret COVID-19 ([facility]) Negative (Negative) COVID-19 Clin Com See Note <ROS Hernandez - Last Filed: 08/04/20 16:41> Lab Results 08/04/20 08/04/20 08/04/20 Range/Units 10:58 10:58 10:58 WBC 16.5 H (4.8-10.8) X10*3/uL RBC 3.42 L (4.20-5.50) X10*6/uL Hgb 12.1 (12.0-16.0) g/dl Hct 36.3 L (37-47) % MCV 106.1 H (80-98) fL MCH 35.4 H (27.0-33.0) pg MCHC 33.3 (31.0-35.0) g/dl RDW 13.0 (11.0-16.0) % Plt Count 260 (160-400) X10*3/uL MPV 12.4 H (9.4-12.3) fL Immature Gran % (Auto) 0.5 H (0.0-0.4) % Neut % (Auto) 88.0 H (45-73) % Lymph % (Auto) 5.0 L (20-40) % [place] % (Auto) 6.1 (2-11) % Eos % (Auto) 0.1 (0-4) % Baso % (Auto) 0.3 (0-2) % Lymph # (Auto) 0.8 L (1.2-4.9) X10*3/uL [place] # (Auto) 1.0 (0.1-1.2) X10*3/uL Eos # (Auto) 0.0 (0.0-0.4) X10*3/uL Baso # (Auto) 0.1 (0.0-0.2) X10*3/uL Abs Immat Gran (auto) 0.08 H (0.00-0.03) X10*3/uL Absolute Neuts (auto) 14.5 H (2.0-8.3) X10*3/uL Absolute Nucleated RBC 0.000 (0.0-0.012) X10*3/uL Nucleated RBC % (auto) 0.0 (0.0-0.2) /100WBC PT 12.8 (10.8-13.0) SEC INR 1.1 (0.9-1.1) APTT 31.3 (24.1-38.0) SEC Sodium 132 L (135-145) mmol/L Potassium 4.1 (3.3-5.1) mmol/l Chloride 100 (96-108) mmol/L Carbon Dioxide 19 L (22-29) mmol/L Anion Gap 17 (12-20) BUN 6 L (9-16) mg/dL Creatinine 0.78 (0.5-1.4) mg/dL Estim Creat Clear Calc 74.1 Estimated GFR > 60 Random Glucose 112 (60-115) mg/dL Lactic Acid (0.5-2.0) mmol/L Lactic Acid Fup @ 2Hr (0.5-2.0) mmol/L Calcium 8.6 (8.4-10.2) mg/dL Total Bilirubin 0.6 (0.0-1.0) mg/dL Direct Bilirubin 0.2 (0.0-0.5) mg/dL AST 23 D (5-31) U/L ALT 22 (0-31) U/L Alkaline Phosphatase 64 D (39-117) U/L Troponin I High Sens (<3.5-17.0) ng/L Total Protein 6.4 L (6.5-8.0) g/dL Albumin 4.0 (3.5-5.0) g/dL Lipase 17 (8-78) U/L Urine Color Urine Appearance Urine pH (5.0-8.0) Ur Specific [place] (1.005-1.025) Urine Protein (NEG-TRACE) MG/DL Urine Glucose (UA) (NEG) MG/DL Urine Ketones (NEG) MG/DL Urine Blood (NEG) Urine Nitrite (NEG) Ur Leukocyte Esterase (NEG) Stool Leukocytes, Qual (NEGATIVE) C. difficile Toxin A&B (Negative) C. difficile Antigen (Negative) C. difficile Interpret COVID-19 ([facility]) (Negative) COVID-19 Clin Com 08/04/20 08/04/20 08/04/20 Range/Units 10:58 13:20 14:19 WBC (4.8-10.8) X10*3/uL RBC (4.20-5.50) X10*6/uL Hgb (12.0-16.0) g/dl Hct (37-47) % MCV (80-98) fL MCH (27.0-33.0) pg MCHC (31.0-35.0) g/dl RDW (11.0-16.0) % Plt Count (160-400) X10*3/uL MPV (9.4-12.3) fL Immature Gran % (Auto) (0.0-0.4) % Neut % (Auto) (45-73) % Lymph % (Auto) (20-40) % [place] % (Auto) (2-11) % Eos % (Auto) (0-4) % Baso % (Auto) (0-2) % Lymph # (Auto) (1.2-4.9) X10*3/uL [place] # (Auto) (0.1-1.2) X10*3/uL Eos # (Auto) (0.0-0.4) X10*3/uL Baso # (Auto) (0.0-0.2) X10*3/uL Abs Immat Gran (auto) (0.00-0.03) X10*3/uL Absolute Neuts (auto) (2.0-8.3) X10*3/uL Absolute Nucleated RBC (0.0-0.012) X10*3/uL Nucleated RBC % (auto) (0.0-0.2) /100WBC PT (10.8-13.0) SEC INR (0.9-1.1) APTT (24.1-38.0) SEC Sodium (135-145) mmol/L Potassium (3.3-5.1) mmol/l Chloride (96-108) mmol/L Carbon Dioxide (22-29) mmol/L Anion Gap (12-20) BUN (9-16) mg/dL Creatinine (0.5-1.4) mg/dL Estim Creat Clear Calc Estimated GFR Random Glucose (60-115) mg/dL Lactic Acid 2.3 H* (0.5-2.0) mmol/L Lactic Acid Fup @ 2Hr 0.9 (0.5-2.0) mmol/L Calcium (8.4-10.2) mg/dL Total Bilirubin (0.0-1.0) mg/dL Direct Bilirubin (0.0-0.5) mg/dL AST (5-31) U/L ALT (0-31) U/L Alkaline Phosphatase (39-117) U/L Troponin I High Sens (<3.5-17.0) ng/L Total Protein (6.5-8.0) g/dL Albumin (3.5-5.0) g/dL Lipase (8-78) U/L Urine Color YELLOW Urine Appearance CLEAR Urine pH 6.0 (5.0-8.0) Ur Specific [place] <= 1.005 (1.005-1.025) Urine Protein NEG (NEG-TRACE) MG/DL Urine Glucose (UA) NEG (NEG) MG/DL Urine Ketones NEG (NEG) MG/DL Urine Blood NEG (NEG) Urine Nitrite NEG (NEG) Ur Leukocyte Esterase NEG (NEG) Stool Leukocytes, Qual (NEGATIVE) C. difficile Toxin A&B (Negative) C. difficile Antigen (Negative) C. difficile Interpret COVID-19 ([facility]) (Negative) COVID-19 Clin Com 08/04/20 08/04/20 08/04/20 Range/Units 17:05 17:05 17:16 WBC (4.8-10.8) X10*3/uL RBC (4.20-5.50) X10*6/uL Hgb (12.0-16.0) g/dl Hct (37-47) % MCV (80-98) fL MCH (27.0-33.0) pg MCHC (31.0-35.0) g/dl RDW (11.0-16.0) % Plt Count (160-400) X10*3/uL MPV (9.4-12.3) fL Immature Gran % (Auto) (0.0-0.4) % Neut % (Auto) (45-73) % Lymph % (Auto) (20-40) % [place] % (Auto) (2-11) % Eos % (Auto) (0-4) % Baso % (Auto) (0-2) % Lymph # (Auto) (1.2-4.9) X10*3/uL [place] # (Auto) (0.1-1.2) X10*3/uL Eos # (Auto) (0.0-0.4) X10*3/uL Baso # (Auto) (0.0-0.2) X10*3/uL Abs Immat Gran (auto) (0.00-0.03) X10*3/uL Absolute Neuts (auto) (2.0-8.3) X10*3/uL Absolute Nucleated RBC (0.0-0.012) X10*3/uL Nucleated RBC % (auto) (0.0-0.2) /100WBC PT (10.8-13.0) SEC INR (0.9-1.1) APTT (24.1-38.0) SEC Sodium (135-145) mmol/L Potassium (3.3-5.1) mmol/l Chloride (96-108) mmol/L Carbon Dioxide (22-29) mmol/L Anion Gap (12-20) BUN (9-16) mg/dL Creatinine (0.5-1.4) mg/dL Estim Creat Clear Calc Estimated GFR Random Glucose (60-115) mg/dL Lactic Acid (0.5-2.0) mmol/L Lactic Acid Fup @ 2Hr (0.5-2.0) mmol/L Calcium (8.4-10.2) mg/dL Total Bilirubin (0.0-1.0) mg/dL Direct Bilirubin (0.0-0.5) mg/dL AST (5-31) U/L ALT (0-31) U/L Alkaline Phosphatase (39-117) U/L Troponin I High Sens 3.9 D (<3.5-17.0) ng/L Total Protein (6.5-8.0) g/dL Albumin (3.5-5.0) g/dL Lipase (8-78) U/L Urine Color Urine Appearance Urine pH (5.0-8.0) Ur Specific [place] (1.005-1.025) Urine Protein (NEG-TRACE) MG/DL Urine Glucose (UA) (NEG) MG/DL Urine Ketones (NEG) MG/DL Urine Blood (NEG) Urine Nitrite (NEG) Ur Leukocyte Esterase (NEG) Stool Leukocytes, Qual MOD: 3-9/OIF (NEGATIVE) C. difficile Toxin A&B Positive A (Negative) C. difficile Antigen Positive A (Negative) C. difficile Interpret SEE NOTE COVID-19 ([facility]) (Negative) COVID-19 Clin Com 08/04/20 Range/Units 17:17 WBC (4.8-10.8) X10*3/uL RBC (4.20-5.50) X10*6/uL Hgb (12.0-16.0) g/dl Hct (37-47) % MCV (80-98) fL MCH (27.0-33.0) pg MCHC (31.0-35.0) g/dl RDW (11.0-16.0) % Plt Count (160-400) X10*3/uL MPV (9.4-12.3) fL Immature Gran % (Auto) (0.0-0.4) % Neut % (Auto) (45-73) % Lymph % (Auto) (20-40) % [place] % (Auto) (2-11) % Eos % (Auto) (0-4) % Baso % (Auto) (0-2) % Lymph # (Auto) (1.2-4.9) X10*3/uL [place] # (Auto) (0.1-1.2) X10*3/uL Eos # (Auto) (0.0-0.4) X10*3/uL Baso # (Auto) (0.0-0.2) X10*3/uL Abs Immat Gran (auto) (0.00-0.03) X10*3/uL Absolute Neuts (auto) (2.0-8.3) X10*3/uL Absolute Nucleated RBC (0.0-0.012) X10*3/uL Nucleated RBC % (auto) (0.0-0.2) /100WBC PT (10.8-13.0) SEC INR (0.9-1.1) APTT (24.1-38.0) SEC Sodium (135-145) mmol/L Potassium (3.3-5.1) mmol/l Chloride (96-108) mmol/L Carbon Dioxide (22-29) mmol/L Anion Gap (12-20) BUN (9-16) mg/dL Creatinine (0.5-1.4) mg/dL Estim Creat Clear Calc Estimated GFR Random Glucose (60-115) mg/dL Lactic Acid (0.5-2.0) mmol/L Lactic Acid Fup @ 2Hr (0.5-2.0) mmol/L Calcium (8.4-10.2) mg/dL Total Bilirubin (0.0-1.0) mg/dL Direct Bilirubin (0.0-0.5) mg/dL AST (5-31) U/L ALT (0-31) U/L Alkaline Phosphatase (39-117) U/L Troponin I High Sens (<3.5-17.0) ng/L Total Protein (6.5-8.0) g/dL Albumin (3.5-5.0) g/dL Lipase (8-78) U/L Urine Color Urine Appearance Urine pH (5.0-8.0) Ur Specific [place] (1.005-1.025) Urine Protein (NEG-TRACE) MG/DL Urine Glucose (UA) (NEG) MG/DL Urine Ketones (NEG) MG/DL Urine Blood (NEG) Urine Nitrite (NEG) Ur Leukocyte Esterase (NEG) Stool Leukocytes, Qual (NEGATIVE) C. difficile Toxin A&B (Negative) C. difficile Antigen (Negative) C. difficile Interpret COVID-19 ([facility]) Negative (Negative) COVID-19 Clin Com See Note <Haris Guidry MD - Last Filed: 08/05/20 13:19> Discharge Plan Discharge Clinical Impression: Colitis <ROS Hernandez - Last Filed: 08/04/20 16:41> Patient Disposition: Admitted As Inpatient <ROS Hernandez - Last Filed: 08/04/20 16:41> Interventions: Admission Worksheet (ED) Last Done: 08/04/20 22:02 <ROS Hernandez - Last Filed: 08/04/20 16:41> Discharge Date/Time: 08/04/20 22:02 <ROS Hernandez - Last Filed: 08/04/20 16:41> [facility] Past Medical History Medical History: Medical History (Updated 08/05/20 @ 09:39 by Jourdan Mosher MD) Alcoholism Diverticulitis History of ETOH abuse Prolonged QT interval Stress-induced cardiomyopathy <ROS Hernandez - Last Filed: 08/04/20 16:41> Social History Social History: Social History Household Members: Friend(s) Housing: Apartment Do you presently have visiting nurse or other home services: No Alcohol intake: former Smoking Status: Former smoker Use of substances other than those prescribed or required for medical reasons: No Substance Use Type: Marijuana Have you been hit, kicked, punched, or otherwise hurt by someone within the past year? If so, by whom?: No Do you feel safe in your current relationship?: Yes Is there a partner from a previous relationship who is making you feel unsafe now?: No Are you made to feel afraid or neglected: No Advance Directives: No Advance Directives Information Provided: No Do you have thoughts of harming others: None Do you have a plan to hurt others: No Plan Recently lost weight without trying: No service: No Current occupational status: unemployed <ROS Hernandez - Last Filed: 08/04/20 16:41>
[2020-08-04] MEDS: 0.9 % Sodium Chloride 1,000 ML 999 ML IVCONT ×2 (11:06→12:20)
[2020-08-04] MEDS: Acetaminophen 325 MG TABLET 650 MG PO (11:06)
[2020-08-04 11:07] LABS: MANUAL DIFF FLAG NO
[2020-08-04 11:10] LABS: Basophils Absolute Auto 0.1 X10*3/uL (0.0-0.2); Basophils Percent Auto 0.3 % (0-2); Eosinophils Percent Auto 0.1 % (0-4); Hematocrit 36.3 % (37-47); Hemoglobin 12.1 g/dl (12.0-16.0); Imm Gran Abs Auto 0.08 X10*3/uL (0.00-0.03); Imm Gran Pct Auto 0.5 % (0.0-0.4); Lymphocytes Absolute Auto 0.8 X10*3/uL (1.2-4.9); Mean Corpuscular HGB Conc 33.3 g/dl (31.0-35.0); Mean Corpuscular Hemoglobin 35.4 pg (27.0-33.0); Mean Corpuscular Volume 106.1 fL (80-98); Mean Platelet Volume 12.4 fL (9.4-12.3); Monocytes Percent Auto 6.1 % (2-11); Neutrophils Absolute Auto 14.5 X10*3/uL (2.0-8.3); Platelet Count 260 X10*3/uL (160-400); Red Blood Count 3.42 X10*6/uL (4.20-5.50); White Blood Count 16.5 X10*3/uL (4.8-10.8)
[2020-08-04 11:14] LABS: INTERNATIONAL NORM RATIO 1.1 (0.9-1.1); Prothrombin Time 12.8 SEC (10.8-13.0)
[2020-08-04 11:16] LABS: Partial Thromboplastin Time 31.3 SEC (24.1-38.0)
[2020-08-04 11:39] LABS: Lactic Acid 2.3 mmol/L (0.5-2.0)
[2020-08-04 11:47] LABS: Alanine Aminotransferase 22 U/L (0-31); Alkaline Phosphatase 64 U/L (39-117); Anion Gap 17 (12-20); Aspartate Amino Transferase 23 U/L (5-31); Bilirubin Direct 0.2 mg/dL (0.0-0.5); Bilirubin Total 0.6 mg/dL (0.0-1.0); Blood Urea Nitrogen 6 mg/dL (9-16); Calcium 8.6 mg/dL (8.4-10.2); Carbon Dioxide 19 mmol/L (22-29); Chloride 100 mmol/L (96-108); Creatinine Clr Calc Pharmacy 74.1; Estimated Glomerular Filt Rate > 60; Glucose Random 112 mg/dL (60-115); Lipase 17 U/L (8-78); Potassium 4.1 mmol/l (3.3-5.1); Sodium 132 mmol/L (135-145); Total Protein 6.4 g/dL (6.5-8.0)
--- NOTE | 2020-08-04 12:07 | CT_ITS ---
EXAMINATION: CT ABDOMEN AND PELVIS WITH CONTRAST CLINICAL INFORMATION: Abdominal pain. Diverticulitis. COMPARISON: None TECHNIQUE: Multidetector volumetric images were obtained from the superior aspect of the liver through the pubic symphysis following administration 85 mL of Omnipaque 350 intravenous contrast. Sagittal and coronal reformatted images were obtained on the technologist's workstation. Oral contrast: No This CT examination was performed using dose optimization techniques as appropriate, variously including the following: *Automated exposure control *Adjustment of mA and/or kV according to patient size (this includes techniques or standardized protocols for targeted exams where dose is matched to indication/reason for exam; i.e. extremities or head) *Use of iterative reconstruction technique DLP: 451 mGy-cm FINDINGS: LUNG BASES: Left basilar atelectasis. The visualized cardiac structures are unremarkable. LIVER, GALLBLADDER, AND BILIARY TREE: The liver is normal in size, shape, and attenuation. No focal hepatic lesion or biliary ductal dilatation is present. The gallbladder is unremarkable with no evidence of radiopaque gallstones, gallbladder wall thickening, or obvious pericholecystic inflammatory changes. PANCREAS: Unremarkable. SPLEEN: Unremarkable. ADRENAL GLANDS: Unremarkable. KIDNEYS AND URETERS: The kidneys are normal in size, shape, and attenuation. No hydronephrosis, hydroureter, or calculi seen. No perinephric stranding. BLADDER: Unremarkable. GASTROINTESTINAL TRACT: The stomach is unremarkable. Normal caliber small bowel. There is no obstruction. There is wall thickening involving the descending colon, sigmoid colon, and rectum. Although there is colonic diverticulosis present, the largest segment of affected bowel is suggestive of colitis rather than diverticulitis. No free air or free fluid. Normal appendix. ABDOMINAL WALL: Small fat-containing left pelvic hernia. LYMPH NODES: Normal. VASCULAR: Normal caliber aorta with mild atherosclerotic calcification. PELVIC VISCERA: The uterus and adnexa are unremarkable. OSSEOUS STRUCTURES: No acute or suspicious osseous abnormality. Scoliotic curvature of the spine with multilevel degenerative changes. Mild degenerative changes in the hips. CT/CT abdomen pelvis w con IMPRESSION: Wall thickening throughout the left hemicolon suggestive of colitis, favoring infectious or inflammatory etiologies.
[2020-08-04 13:04] LABS: Reflex Lactate? Lactic Acid Added
[2020-08-04] MEDS: iohexoL 350 MG/ML 100 ML INFUS..BTL 85 ML IV (13:21)
[2020-08-04 13:36] LABS: Glucose Urine UA NEG (NEG); Leukocyte Esterase Urine NEG (NEG); Nitrite Urine NEG (NEG); Specific Gravity - Urine <= 1.005 (1.005-1.025); Urine Blood NEG (NEG); Urine Ketones NEG (NEG); Urine Protein NEG (NEG-TRACE)
[2020-08-04 13:38] LABS: Appearance Urine CLEAR; Color Urine YELLOW
[2020-08-04 14:50] LABS: ~Lactic Acid-LAB USE ONLY 0.9 mmol/L (0.5-2.0)
[2020-08-04] MEDS: Ketorolac Tromethamine 30 MG/ML VIAL IVPUSH (16:01)
[2020-08-04] MEDS: metroNIDAZOLE/NS 500 MG/100 ML PIGGYBACK 100 MG IV (16:02)
--- NOTE | 2020-08-04 16:56 | PM.IMHP ---
History of Present Illness Date of Service: 08/04/20 <Yesenia Menchaca NP - Last Filed: 08/04/20 19:45> Chief Complaint: Abdominal pain <Yesenia Menchaca NP - Last Filed: 08/04/20 19:45> 54 year old women presenting with worsening abdominal pain and diarrhea. She reported that she was admitted to [facility] July 15- and was treated for sepsis secondary to diverticulitis. She denied history of this in the past. Of note she happened to be at [facility] for detox. Just prior to that she was admitted to [facility] for Alcohol abuse , cardiomyopathy, encephalopathy, depression with suicidal ideation. Apparently, there was some concern for abuse in the whole although there is no clarification on that. During that admission she was found to have Takotsubo's cardiomyopathy for which she was started on Toprol. She was also treated for alcohol withdrawal with phenobarbital. today, she reported left sided chest pain with radiation to mid chest that seems to be getting worse throughout the day with no other associated symptoms, no acute EKG changes and flat troponin. Unfortunately , she was also found to have C diff which is likely related to recent antibiotic use for diverticulitis, abdominal CT showing colitis. She denied recent travel, fever at home, improperly cooked foods. She was noted to have fever of 101, tachycardia and leukocytosis. She was given Levaquin and flagyl and will be admitted for further management and treatment of acute C diff colitis. <Yesenia Menchaca NP - Last Filed: 08/04/20 19:45> Review of Systems Review of Systems: Denies any recent fever chills or decrease in appetite respiratory denies any shortness of breath coverage production cardiovascular See HPI gastrointestinal See HPI genitourinary denies any dysuria frequency or hematuria musculoskeletal denies any joint pain or swelling neuropsych denies any weakness or seizures all other systems reviewed are negative <Yesenia Menchaca NP - Last Filed: 08/04/20 19:45> Neurologic: Reports system reviewed and no additional complaints, except as documented and Reports as per HPI <Yesenia Menchaca NP - Last Filed: 08/04/20 19:45> [facility] Medical History: Medical History (Updated 08/15/20 @ 00:00 by Background Daemon) Abnormal ECG Alcoholism Clostridial gastroenteritis Diverticulitis History of ETOH abuse Precordial chest pain Prolonged QT interval Stress-induced cardiomyopathy <Yesenia Menchaca NP - Last Filed: 08/04/20 19:45> Functional capacity: independent ambulation <Yesenia Menchaca NP - Last Filed: 08/04/20 19:45> Pertinent family history: Cardiac disease <Yesenia Menchaca NP - Last Filed: 08/04/20 19:45> Social History: Social History Household Members: Friend(s) Housing: Apartment Alcohol intake: former Smoking Status: Former smoker Substance Use Type: Marijuana service: No Current occupational status: unemployed <Yesenia Menchaca NP - Last Filed: 08/04/20 19:45> Meds Allergies/Adverse reactions: Allergies Allergy/AdvReac Type Severity Reaction Status Date / Time No Known Allergies Allergy Verified 07/10/20 05:35 <Yesenia Menchaca NP - Last Filed: 08/04/20 19:45> Home medications: Home Medications Medication Instructions Recorded Confirmed Type bupropion HCl [Wellbutrin XL] 150 mg PO DAILY 08/05/20 08/05/20 History lorazepam 0.5 mg PO BID PRN 08/05/20 08/05/20 History <Yesenia Menchaca NP - Last Filed: 08/04/20 19:45> Physical Exam Vital Signs and Narrative: Vital Signs: Last Vital Signs Temp 99.3 F 08/04/20 15:32 Pulse 105 H 08/04/20 15:32 Resp 19 08/04/20 15:32 BP 104/58 L 08/04/20 15:32 Pulse Ox 95 08/04/20 15:32 Body Mass Index 26.2 <Yesenia Menchaca NP - Last Filed: 08/04/20 19:45> Appearing in no acute distress head is normocephalic atraumatic eyes pupils are PERRLA sclera is anicteric mouth throat mucous membranes are intact and moist neck is supple no lymphadenopathy, no JVD noted lung sounds are clear to auscultation heart regular rate rhythm, clear S1, S2 positive bowel sounds, abdomen is soft, nontender neuro patient is alert x3, no focal deficits <JOSEFA Mclean Last Filed: 08/04/20 19:45> Results Labs CBC and Chem 7: : 08/05/20 05:48 11/18/20 05:48 <Yesenia Menchaca NP - Last Filed: 08/04/20 19:45> Labs: Laboratory Results - last 24 hr 08/04/20 08/04/20 08/04/20 10:58 10:58 10:58 MCV 106.1 H MCH 35.4 H MCHC 33.3 RDW 13.0 Plt Count 260 MPV 12.4 H Immature Gran % (Auto) 0.5 H Neut % (Auto) 88.0 H Lymph % (Auto) 5.0 L [place] % (Auto) 6.1 Eos % (Auto) 0.1 Baso % (Auto) 0.3 Lymph # (Auto) 0.8 L [place] # (Auto) 1.0 Eos # (Auto) 0.0 Baso # (Auto) 0.1 Abs Immat Gran (auto) 0.08 H Absolute Neuts (auto) 14.5 H Absolute Nucleated RBC 0.000 Nucleated RBC % (auto) 0.0 PT 12.8 INR 1.1 APTT 31.3 Anion Gap 17 Estim Creat Clear Calc 74.1 Estimated GFR > 60 Random Glucose 112 Lactic Acid Lactic Acid Fup @ 2Hr Calcium 8.6 Total Bilirubin 0.6 Direct Bilirubin 0.2 AST 23 D ALT 22 Alkaline Phosphatase 64 D Total Protein 6.4 L Albumin 4.0 Lipase 17 Urine Color Urine Appearance Urine pH Ur Specific [place] Urine Protein Urine Glucose (UA) Urine Ketones Urine Blood Urine Nitrite Ur Leukocyte Esterase 08/04/20 08/04/20 08/04/20 10:58 13:20 14:19 MCV MCH MCHC RDW Plt Count MPV Immature Gran % (Auto) Neut % (Auto) Lymph % (Auto) [place] % (Auto) Eos % (Auto) Baso % (Auto) Lymph # (Auto) [place] # (Auto) Eos # (Auto) Baso # (Auto) Abs Immat Gran (auto) Absolute Neuts (auto) Absolute Nucleated RBC Nucleated RBC % (auto) PT INR APTT Anion Gap Estim Creat Clear Calc Estimated GFR Random Glucose Lactic Acid 2.3 H* Lactic Acid Fup @ 2Hr 0.9 Calcium Total Bilirubin Direct Bilirubin AST ALT Alkaline Phosphatase Total Protein Albumin Lipase Urine Color YELLOW Urine Appearance CLEAR Urine pH 6.0 Ur Specific [place] <= 1.005 Urine Protein NEG Urine Glucose (UA) NEG Urine Ketones NEG Urine Blood NEG Urine Nitrite NEG Ur Leukocyte Esterase NEG <Yesenia Menchaca NP - Last Filed: 08/04/20 19:45> Imaging Radiologist's Impressions: Impressions Abdomen/Pelvis CT 08/04/20 12:07 IMPRESSION: Wall thickening throughout the left hemicolon suggestive of colitis, favoring infectious or inflammatory etiologies. <Yesenia Menchaca NP - Last Filed: 08/04/20 19:45> Assessment and Plan (1) Colitis: Problem details: She has Cdiff This is probably due to antibiotic use <Yesenia Menchaca NP - Last Filed: 08/04/20 19:45> Status: Acute <Yesenia Menchaca NP - Last Filed: 08/04/20 19:45> 54 year old man admitted with severe sepsis secondary to colitis Severe sepsis secondary to cdiff colitis. Likely from recent antibiotic use diverticulitis. Fever, tachycardia, leukocytosis, lactic acidosis. Follow blood culture. Levaquin, flagyl. GI to follow. Check stool studies. Oral vancomycin. Chest pain. Recent diagnosis of stress cardiomyopathy. Trend troponins, EKG, monitor on telemetry. Cardiology consult. Anxiety. Continue lorazepam. Alcohol abuse. Reports that she quit in June, detoxed recently at [facility]. [facility] on [facility] Smoker. NRT. Discussed smoking cessation. DVT prophylaxis with Lovenox. Discussed with Dr. Ingram. <Yesenia Menchaca NP - Last Filed: 08/04/20 19:45>
[2020-08-04] MEDS: levoFLOXacin/D5W 750 MG/150 ML PIGGYBACK 100 MG IV (17:37)
[2020-08-04 17:43] LABS: COVID-19 Test Negative (Negative)
[2020-08-04 18:03] LABS: Troponin-I High Sensitivity 3.9 ng/L (<3.5-17.0)
[2020-08-04] MEDS: Morphine Sulfate 2 MG/ML CARTRIDGE IM (18:06)
[2020-08-04 18:08] LABS: Leukocytes Stool Qualitative MOD: 3-9/OIF (NEGATIVE)
[2020-08-04 18:17] LABS: CDIFF Ag Positive (Negative); CDiff Toxin Positive (Negative)
[2020-08-04 18:20] LABS: CDIFF Internal ctrl Dots and bkg OK (V)
--- NOTE | 2020-08-04 19:33 | PM.EVENT ---
Event Note Date of Service: 08/05/20 Event Note: Patient seen and examined: Was recently here for alcohol withdrawal, prolonged QT, electrolytic abnormalities EKG showing lateral T-wave inversions and that time found to have question of takotsubo stress induced cardiomyopathy ,she said father recently on hospice. She also says that she was about to all get a appointment with Cardiology but she could not able to the arrange it some insurance issue Afterwards she end up ? [facility] because of diverticulitis and received antibiotic until last week. Now she is coming of lower abdominal pain left side and also has excessive diarrhea She denies any shortness of breath or fever or chills or any urinary complaints In addition patient has some reproducible chest tightness, and positional tightness. Lab imaging EKG reviewed: EKG looks similar to before. Troponin normal CT abdomen: Shows left hemicolon with thickening/colitis. 2.3 initially repeated is 0.9, also tachycardic WBC count of 16 C diff Positive Blood culture pending Physical exam: Cvs: rrr, [id number] , no murmur res: clear to auscultation ,no rhonchii or wheezing abd: no rebound or guarding , abdominal pain left lower quadrant, bs present. ext pulses present , no cyanosis neuro: axo3 , nonfocal.: Assessment and plan: Severe sepsis secondary to C diff colitis probably Will add IV Flagyl and p.o. Vanco Gentle hydration Clear liquid diet GI evaluation in the morning. History of takotsubo question she said her recent echo in the [place] was was told to her was fine, troponin negative EKG seen looks similar continue her beta-aristides metoprolol Cardio evaluation in morning
--- NOTE | 2020-08-04 20:15 | PC.NURSE ---
resting queitly. emotional. awaiting bed assignment. abd is soft, tender to touch. moist mm. clear liquids provided. reports watery diarrhea
--- NOTE | 2020-08-04 21:36 | PC.NURSE ---
Report called to [facility] ALEXAND[facility] on [facility]. Pt requesting medication for pain. None in MAR at this time. Dr.Perez iRvera notified.
[2020-08-04] MEDS: 0.9 % Sodium Chloride 1,000 ML 100 ML IVCONT (22:18)
[2020-08-05] VITALS (7 sets, daily range): BP systolic 108–141; BP diastolic 61–79; PULSE 69–102; RESP 15–18; TEMP 36.6–36.9; O2SAT 94–100
[2020-08-05] MEDS: metroNIDAZOLE/NS 500 MG/100 ML PIGGYBACK 100 MG IV ×2 (00:04→07:33)
[2020-08-05] MEDS: 0.9 % Sodium Chloride Flush 3 ML SYRINGE IVFLUSH ×2 (00:04→23:53)
[2020-08-05] MEDS: vancomycin HCL 125 MG CAPSULE PO ×5 (00:05→23:53)
[2020-08-05] MEDS: Morphine Sulfate 2 MG/ML CARTRIDGE 1 MG IVPUSH ×3 (00:54→15:55)
[2020-08-05 06:43] LABS: Basophils Absolute Auto 0.1 X10*3/uL (0.0-0.2); Basophils Percent Auto 0.3 % (0-2); Eosinophils Percent Auto 0.3 % (0-4); Hematocrit 32.5 % (37-47); Hemoglobin 10.6 g/dl (12.0-16.0); Imm Gran Abs Auto 0.07 X10*3/uL (0.00-0.03); Imm Gran Pct Auto 0.4 % (0.0-0.4); Lymphocytes Absolute Auto 1.1 X10*3/uL (1.2-4.9); Lymphocytes Percent Auto 7.2 % (20-40); MANUAL DIFF FLAG SCAN; Mean Corpuscular HGB Conc 32.6 g/dl (31.0-35.0); Mean Corpuscular Hemoglobin 34.3 pg (27.0-33.0); Mean Corpuscular Volume 105.2 fL (80-98); Mean Platelet Volume 12.1 fL (9.4-12.3); Monocytes Absolute Auto 2.5 X10*3/uL (0.1-1.2); Monocytes Percent Auto 15.9 % (2-11); Neutrophils Absolute Auto 11.8 X10*3/uL (2.0-8.3); Neutrophils Percent Auto 75.9 % (45-73); Platelet Count 281 X10*3/uL (160-400); Red Blood Count 3.09 X10*6/uL (4.20-5.50); Red Cell Distribution Width 13.3 % (11.0-16.0); SCAN SMEAR FLAG 1; White Blood Count 15.6 X10*3/uL (4.8-10.8)
[2020-08-05] MEDS: Acetaminophen 325 MG TABLET 650 MG PO (07:31)
[2020-08-05 07:32] LABS: SLIDE REVIEW VERIFIED
[2020-08-05 07:33] LABS: Anion Gap 14 (12-20); Blood Urea Nitrogen 4 mg/dL (9-16); Carbon Dioxide 17 mmol/L (22-29); Chloride 103 mmol/L (96-108); Creatinine Clr Calc Pharmacy 82.5; Estimated Glomerular Filt Rate > 60; Glucose Random 111 mg/dL (60-115); Potassium 3.3 mmol/l (3.3-5.1); Sodium 131 mmol/L (135-145)
[2020-08-05] MEDS: ondansetron HCL 4 MG/2 ML VIAL IVPUSH (07:33)
[2020-08-05] MEDS: 0.9 % Sodium Chloride 1,000 ML 100 ML IVCONT ×2 (08:12→18:20)
--- NOTE | 2020-08-05 09:34 | PM.CNCAR ---
History of Present Illness History of Present Illness Date of Consult: August 05, 2020 Chief complaint: Abdominal pain Narrative: This is a cardiology consultation regarding recent stress-induced cardiomyopathy. Few weeks ago, she was admitted to the hospital with alcohol issues and change in mental status. At that time she had abnormal EKG with anterolateral T inversions and prolonged QTC. Her echocardiogram showed suspicion of stress-induced cardiomyopathy. She was then eventually discharged home after being medically stable. Follow-up echocardiogram was scheduled as an outpatient. However, it appears that she was rather at a [facility] for sepsis/diverticulitis. She states that she is no longer having any alcohol intake. Otherwise the current admission is because of abdominal pain and diarrhea and she is now treated for C diff infection. From the cardiac point, she is having a left-sided discomfort which is fairly constant and nonexertional. Clinically not sounding cardiac. Review of Systems Review of Systems: [id number] chest pain appears nonexertional and probably not anginal; not short of breath. No palpitations or dizzy spells or syncopal episodes. Gastrointestinal- positive for abdominal pain and diarrhea. Yes all other systems are reviewed and are negative Neurologic: Reports system reviewed and no additional complaints, except as documented and Reports as per [facility] Past Medical History Medical History (Updated 08/05/20 @ 09:39 by Jourdan Mosher MD) Alcoholism Diverticulitis History of ETOH abuse Prolonged QT interval Stress-induced cardiomyopathy Functional capacity: independent ambulation Family History Pertinent family history: Family history reviewed and nothing pertinent to this admission from cardiac. Social History Social History Household Members: Friend(s) Housing: Apartment Do you presently have visiting nurse or other home services: No Alcohol intake: former Smoking Status: Former smoker Use of substances other than those prescribed or required for medical reasons: No Substance Use Type: Marijuana Have you been hit, kicked, punched, or otherwise hurt by someone within the past year? If so, by whom?: No Do you feel safe in your current relationship?: Yes Is there a partner from a previous relationship who is making you feel unsafe now?: No Are you made to feel afraid or neglected: No Advance Directives: No Advance Directives Information Provided: No Do you have thoughts of harming others: None Do you have a plan to hurt others: No Plan Recently lost weight without trying: No service: No Current occupational status: unemployed Meds Allergies Allergy/AdvReac Type Severity Reaction Status Date / Time No Known Allergies Allergy Verified 07/10/20 05:35 Home Medications Medication Instructions Recorded Confirmed Type Ativan 1 tab PO TID PRN 07/10/20 08/04/20 History Physical Exam Vital Signs: Vital Signs: Last Vital Signs Temp 98.2 F 08/05/20 08:00 Pulse 83 08/05/20 08:00 Resp 18 08/05/20 08:00 BP 109/61 08/05/20 08:00 Pulse Ox 96 08/05/20 08:00 Body Mass Index 26.1 Comfortable, no distress No pallor, icterus or cyanosis HEENT -unremarkable JVD- normal Cardiac- normal heart sounds, no murmurs, gallops or rubs, normal PMI Respiratory-normal breath sounds bilaterally, no crackles, no wheeze Abdomen- soft, nontender Neuro- alert and oriented Lower extremities- no significant edema, warm well perfused Results Labs and Meds Result diagrams: 08/05/20 05:48 08/05/20 05:48 Lab results: Laboratory Results - last 24 hr 08/04/20 08/04/20 08/04/20 10:58 10:58 10:58 WBC 16.5 H RBC 3.42 L Hgb 12.1 Hct 36.3 L MCV 106.1 H MCH 35.4 H MCHC 33.3 RDW 13.0 Plt Count 260 MPV 12.4 H Immature Gran % (Auto) 0.5 H Neut % (Auto) 88.0 H Lymph % (Auto) 5.0 L [place] % (Auto) 6.1 Eos % (Auto) 0.1 Baso % (Auto) 0.3 Lymph # (Auto) 0.8 L [place] # (Auto) 1.0 Eos # (Auto) 0.0 Baso # (Auto) 0.1 Abs Immat Gran (auto) 0.08 H Absolute Neuts (auto) 14.5 H Absolute Nucleated RBC 0.000 Nucleated RBC % (auto) 0.0 Smear Tech's Comments PT 12.8 INR 1.1 APTT 31.3 Sodium 132 L Potassium 4.1 Chloride 100 Carbon Dioxide 19 L Anion Gap 17 BUN 6 L Creatinine 0.78 Estim Creat Clear Calc 74.1 Estimated GFR > 60 Random Glucose 112 Lactic Acid Lactic Acid Fup @ 2Hr Calcium 8.6 Total Bilirubin 0.6 Direct Bilirubin 0.2 AST 23 D ALT 22 Alkaline Phosphatase 64 D Troponin I High Sens Total Protein 6.4 L Albumin 4.0 Lipase 17 Urine Color Urine Appearance Urine pH Ur Specific [place] Urine Protein Urine Glucose (UA) Urine Ketones Urine Blood Urine Nitrite Ur Leukocyte Esterase Stool Leukocytes, Qual C. difficile Toxin A&B C. difficile Antigen C. difficile Interpret COVID-19 ([facility]) COVID-19 Clin Com 08/04/20 08/04/20 08/04/20 10:58 13:20 14:19 WBC RBC Hgb Hct MCV MCH MCHC RDW Plt Count MPV Immature Gran % (Auto) Neut % (Auto) Lymph % (Auto) [place] % (Auto) Eos % (Auto) Baso % (Auto) Lymph # (Auto) [place] # (Auto) Eos # (Auto) Baso # (Auto) Abs Immat Gran (auto) Absolute Neuts (auto) Absolute Nucleated RBC Nucleated RBC % (auto) Smear Tech's Comments PT INR APTT Sodium Potassium Chloride Carbon Dioxide Anion Gap BUN Creatinine Estim Creat Clear Calc Estimated GFR Random Glucose Lactic Acid 2.3 H* Lactic Acid Fup @ 2Hr 0.9 Calcium Total Bilirubin Direct Bilirubin AST ALT Alkaline Phosphatase Troponin I High Sens Total Protein Albumin Lipase Urine Color YELLOW Urine Appearance CLEAR Urine pH 6.0 Ur Specific [place] <= 1.005 Urine Protein NEG Urine Glucose (UA) NEG Urine Ketones NEG Urine Blood NEG Urine Nitrite NEG Ur Leukocyte Esterase NEG Stool Leukocytes, Qual C. difficile Toxin A&B C. difficile Antigen C. difficile Interpret COVID-19 ([facility]) COVID-19 Clin Com 08/04/20 08/04/20 08/04/20 17:05 17:05 17:16 WBC RBC Hgb Hct MCV MCH MCHC RDW Plt Count MPV Immature Gran % (Auto) Neut % (Auto) Lymph % (Auto) [place] % (Auto) Eos % (Auto) Baso % (Auto) Lymph # (Auto) [place] # (Auto) Eos # (Auto) Baso # (Auto) Abs Immat Gran (auto) Absolute Neuts (auto) Absolute Nucleated RBC Nucleated RBC % (auto) Smear Tech's Comments PT INR APTT Sodium Potassium Chloride Carbon Dioxide Anion Gap BUN Creatinine Estim Creat Clear Calc Estimated GFR Random Glucose Lactic Acid Lactic Acid Fup @ 2Hr Calcium Total Bilirubin Direct Bilirubin AST ALT Alkaline Phosphatase Troponin I High Sens 3.9 D Total Protein Albumin Lipase Urine Color Urine Appearance Urine pH Ur Specific [place] Urine Protein Urine Glucose (UA) Urine Ketones Urine Blood Urine Nitrite Ur Leukocyte Esterase Stool Leukocytes, Qual MOD: 3-9/OIF C. difficile Toxin A&B Positive A C. difficile Antigen Positive A C. difficile Interpret SEE NOTE COVID-19 ([facility]) COVID-Ascletis 08/04/20 08/05/20 08/05/20 17:17 05:48 05:48 WBC 15.6 H RBC 3.09 L Hgb 10.6 L Hct 32.5 L MCV 105.2 H MCH 34.3 H MCHC 32.6 RDW 13.3 Plt Count 281 MPV 12.1 Immature Gran % (Auto) 0.4 Neut % (Auto) 75.9 H Lymph % (Auto) 7.2 L [place] % (Auto) 15.9 H Eos % (Auto) 0.3 Baso % (Auto) 0.3 Lymph # (Auto) 1.1 L [place] # (Auto) 2.5 H Eos # (Auto) 0.0 Baso # (Auto) 0.1 Abs Immat Gran (auto) 0.07 H Absolute Neuts (auto) 11.8 H Absolute Nucleated RBC 0.000 Nucleated RBC % (auto) 0.0 Smear Tech's Comments VERIFIED PT INR APTT Sodium 131 L Potassium 3.3 Chloride 103 Carbon Dioxide 17 L Anion Gap 14 BUN 4 L Creatinine 0.70 Estim Creat Clear Calc 82.5 Estimated GFR > 60 Random Glucose 111 Lactic Acid Lactic Acid Fup @ 2Hr Calcium 8.0 L D Total Bilirubin Direct Bilirubin AST ALT Alkaline Phosphatase Troponin I High Sens Total Protein Albumin Lipase Urine Color Urine Appearance Urine pH Ur Specific [place] Urine Protein Urine Glucose (UA) Urine Ketones Urine Blood Urine Nitrite Ur Leukocyte Esterase Stool Leukocytes, Qual C. difficile Toxin A&B C. difficile Antigen C. difficile Interpret COVID-19 ([facility]) Negative COVIDDaz 3d See Note Assessment and Plan (1) Abnormal ECG: Status: Acute (2) Stress-induced cardiomyopathy: Status: Inactive (3) Precordial chest pain: Status: Acute Recent diagnosis of stress-induced cardiomyopathy. We will repeat an echocardiogram for assessing LVEF /wall motion. With regard to the chest pain, sounds very atypical for cardiac. Negative high sensitivity troponins. At some point, stress testing can be considered. Procedures Abscess I/D Date of Service: 08/05/20
--- NOTE | 2020-08-05 11:24 | MHC.CM.PN ---
met with pt who explains that she had no servceis prior to admission and that she does not anticapate needing servceis when dcd
--- NOTE | 2020-08-05 13:00 | CA_ITS ---
Transthoracic Echocardiogram Patient (Last, First, Middle): Shelly Mac, Gender: Female Date of : 1965 Age: 54 Procedure Date: 08/05/2020 Procedure Type: Transthoracic Echocardiogram Location: [facility] Height: 160.02 cm Weight: 66.68 kg BSA: 1.70 m2 Heart Rate: bpm BP: 108 / 75 mmHg Operations Staff Specialist Security: DSG Referring MD: Jourdan Mosher MD Symptoms: stress induced cardiomyopathy Study Quality: Good ECG Rhythm: Sinus Conclusions: - The left ventricular systolic function is normal. The visually estimated ejection fraction is between 60-65%. Findings Left Ventricle Normal left ventricular cavity size. There is normal left ventricular wall thickness. The left ventricular systolic function is normal. The visually estimated ejection fraction is between 60-65%. There is no evidence of regional wall motion abnormalities. Prior Study Comparison Changes noted compared to prior study dated: 07/09/2020. Wall motion abnormalities seem improved. Measurements 2D Systolic Function EF 4C: 80.70 >55% EF 2C: 76.60 >55% EF BiP: 78.50 >55% Mitral Valve MV Pk E: 0.88 MV PK A: 0.57 MV Decel Time: 180.00 E/A: 1.50 E'Lateral: 8.32 E'Medial: 10.70 E/E' Med: 8.30 E/E' Lat: 10.60 PHT: 53.00 MVA PHT: 4.15 [place]: 4.92 Diastolic Function MV Pk E: 0.88 MV Pk A: 0.57 E/A: 1.50 E'Medial: 10.70 E/E' Med: 8.30 E' Laterial: 8.32 E/E' Lat: 10.60 Updated in Other Vendor System with Status of Final Jourdan Mosher MD electronically signed on 08/05/2020 4:57:46 PM with status of Final
[2020-08-05] MEDS: LORazepam 0.5 MG TABLET PO ×2 (13:23→20:37)
[2020-08-05] MEDS: Metoprolol Succinate ER 25 MG TAB.ER.24H PO (13:23)
[2020-08-05] MEDS: buPROPion HCl XL 150 MG TAB.ER.24H PO (13:23)
--- NOTE | 2020-08-05 15:39 | W.PM.IDCN ---
History of Present Illness Data of Consult Service Date: 08/05/20 Requesting physician: Hai Ingram Primary Care Provider: Riri Cheney NP HPI Reason for consult: abdominal discomfort She presents to hospital with 6/10 abdominal discomfort She has no fever or chills She was hospitalized [facility] 07/15-07/17. She was treated with antibiotics for 2 weeks,Levaquin and Flagyl reported She has no blood in stool,but multiple watery bowel movements Review of Systems Gastrointestinal: Gastrointestinal: Reports abdominal pain Neurologic: Reports system reviewed and no additional complaints, except as documented and Reports as per HPI [facility] Past Medical History Medical History Alcoholism Diverticulitis History of ETOH abuse Prolonged QT interval Stress-induced cardiomyopathy Functional capacity: independent ambulation Social History Social History Household Members: Friend(s) Housing: Apartment Do you presently have visiting nurse or other home services: No Alcohol intake: former Smoking Status: Former smoker Use of substances other than those prescribed or required for medical reasons: No Substance Use Type: Marijuana Have you been hit, kicked, punched, or otherwise hurt by someone within the past year? If so, by whom?: No Do you feel safe in your current relationship?: Yes Is there a partner from a previous relationship who is making you feel unsafe now?: No Are you made to feel afraid or neglected: No Advance Directives: No Advance Directives Information Provided: No Do you have thoughts of harming others: None Do you have a plan to hurt others: No Plan Recently lost weight without trying: No service: No Current occupational status: unemployed Meds Allergies Allergy/AdvReac Type Severity Reaction Status Date / Time No Known Allergies Allergy Verified 07/10/20 05:35 Home Medications Medication Instructions Recorded Confirmed Type bupropion HCl [Wellbutrin XL] 150 mg PO DAILY 08/05/20 08/05/20 History lorazepam 0.5 mg PO BID PRN 08/05/20 08/05/20 History Physical Exam Vital Signs: Vital Signs: Last Vital Signs Temp 98 F 08/05/20 15:32 Pulse 72 08/05/20 15:32 Resp 18 11/18/20 15:32 BP 108/65 08/05/20 15:32 Pulse Ox 98 08/05/20 15:32 Body Mass Index 26.1 Const: General: cooperative HENMT: Ears: hearing grossly normal bilaterally Mouth: Normal oral and palatal mucosa present Resp: Effort & Inspection: normal respiratory effort Cardio: Rate: regular rate Rhythm: regular rhythm GI: Palpation (GI): Soft to palpation, Tenderness to palpation present (GI) in the LLQ and Rebound tenderness present : General: Yes no CVA tenderness Back/Spine/Pelvis: Back: no CVA tenderness Skin: General skin exam: no rashes or lesions noted Assessment and Plan (1) Colitis: Problem details: She has Cdiff This is probably due to antibiotic use Status: Acute Stop Levaquin and Flagyl as not severe Cdiff Would give po Vancomycin 125 qid for 10 day (2) Clostridial gastroenteritis: Status: Acute Results Labs CBC & Chem 7: 08/05/20 05:48 08/05/20 05:48 Labs: Short CBC 08/05/20 Range/Units 05:48 WBC 15.6 H (4.8-10.8) X10*3/uL Hgb 10.6 L (12.0-16.0) g/dl Hct 32.5 L (37-47) % Plt Count 281 (160-400) X10*3/uL BMP 08/05/20 05:48 Sodium 131 L Potassium 3.3 Chloride 103 Carbon Dioxide 17 L BUN 4 L Creatinine 0.70 Calcium 8.0 L D Microbiology Microbiology Results: Microbiology 08/04/20 11:08 Blood - Venous Blood Culture - Preliminary No growth after 24 hours. 08/04/20 10:58 Blood - Venous Blood Culture - Preliminary No growth after 24 hours. 08/04/20 17:24 Stool Stool Culture - Preliminary Culture in progress.
--- NOTE | 2020-08-05 15:42 | HO.PM.IMPN ---
Subjective Subjective Date of Service: 08/06/20 Interval History: C diff colitis, chest tightness Review of Systems Patient states chest tightness improving, seems little anxious today Still has abdominal pain Denies any urine complaints or weakness or numbness or fever or chills Physical Exam Vital Signs: Vital Signs: Last Vital Signs Temp 98 F 08/05/20 15:32 Pulse 72 08/05/20 15:32 Resp 18 08/05/20 15:32 BP 108/65 08/05/20 15:32 Pulse Ox 98 08/05/20 15:32 Body Mass Index 26.1 Physical exam: Cvs: rrr, [id number] , no murmur res: clear to auscultation ,no rhonchii or wheezing abd: no rebound or guarding , abd pain in llq still present , bs present. ext pulses present , no cyanosis neuro: axo3 , nonfocal. Objective Data Current Medications Generic Name Dose Route Start Last Admin Trade Name Freq PRN Reason Stop Dose Admin Acetaminophen 650 mg 08/04/20 21:57 08/05/20 07:31 Acetaminophen 325 Mg Tablet PO 650 mg Q6H PRN Administration Pain, Mild (Pain Scale 1-3) Bupropion HCl 150 mg 08/06/20 09:00 08/05/20 13:23 Bupropion Hcl Xl 150 Mg Tab.Er.24h PO 150 mg DAILY SELENA Administration Sodium Chloride 1,000 mls @ 100 mls/hr 08/04/20 21:57 08/05/20 08:12 Ns IVCONT 100 mls/hr .Q10H SELENA Administration Levofloxacin 500 mg in 100 mls @ 100 mls/hr 08/05/20 17:00 Levaquin IV Q24H SELENA Metronidazole 500 mg in 100 mls @ 100 mls/hr 08/05/20 00:00 08/05/20 08:36 Flagyl IV Infused Q8H SELENA Infusion Lorazepam 0.5 mg 08/05/20 12:18 08/05/20 13:23 Lorazepam 0.5 Mg Tablet PO 0.5 mg BID PRN Administration Anxiety Metoprolol Succinate 25 mg 08/06/20 09:00 08/05/20 13:23 Metoprolol Succinate Er 25 Mg Tab.Er.24h PO 25 mg DAILY SELENA Administration Protocol Morphine Sulfate 1 mg 08/05/20 08:17 08/05/20 09:31 Morphine Sulfate 2 Mg/Ml Cartridge IVPUSH 1 mg Q6H PRN Administration Pain and Fever Ondansetron HCl 4 mg 08/04/20 21:57 08/05/20 07:33 Ondansetron Hcl 4 Mg/2 Ml Vial IVPUSH 4 mg Q8H PRN Administration Nausea and Vomiting Pharmacy Consult 1 each 08/04/20 17:02 Consult Rx Perform Med Rec MISCELLANE ONCE PRN Consult order Sodium Chloride 3 ml 08/05/20 00:00 08/05/20 15:31 0.9 % Sodium Chloride Flush 3 Ml Syringe IVFLUSH Not Given QSHIFT SELENA Vancomycin HCl 125 mg 08/05/20 00:00 08/05/20 12:05 Vancomycin Hcl 125 Mg Capsule PO 125 mg Q6H SELENA Administration Labs CBC & Chem 7: 08/05/20 05:48 08/05/20 05:48 Microbiology Microbiology Results: Microbiology 08/04/20 11:08 Blood - Venous Blood Culture - Preliminary No growth after 24 hours. 08/04/20 10:58 Blood - Venous Blood Culture - Preliminary No growth after 24 hours. 08/04/20 17:24 Stool Stool Culture - Preliminary Culture in progress. Assessment and Plan (1) Encephalopathy: Status: Resolved (2) Prolonged QT interval: (3) Altered mental status: Status: Resolved (4) Abnormal ECG: Status: Acute (5) Alcoholism: Status: Resolved Assessment and Plan: 1.Severe sepsis secondary to C diff colitis probably Will add IV Flagyl and p.o. Vanco Gentle hydration Clear liquid diet ID evaluation in the morning. 2.History of takotsubo question she said her recent echo in the [place] was was told to her was fine, troponin negative EKG seen looks similar continue her beta-aristides metoprolol Cardio saw the patient -echo pending
--- NOTE | 2020-08-05 19:04 | CONS_ITS ---
DATE OF SERVICE: 08/05/2020 REFERRING PHYSICIAN: Hai Ingram MD REASON FOR CONSULTATION: C diff colitis. HISTORY OF PRESENT ILLNESS: The patient is a pleasant 54-year-old woman, who was admitted to the hospital yesterday after presenting to the emergency room with complaints of abdominal pain and diarrhea. She was hospitalized in [place] initially with alcohol withdrawal and detox and subsequently developed left lower quadrant pain and was treated for diverticulitis, initially with intravenous antibiotics, then with outpatient antibiotics for 2 weeks by her report. She did well until the day before admission when she developed left lower quadrant pain with associated diarrhea and presented to the emergency room. She was febrile to 101, and had an elevated white count and tachycardia. She was evaluated with laboratory studies including stool testing, which was positive for C diff imaging with CT scanning of the abdomen and pelvis documented thickening involving the descending, sigmoid, and rectum. This was thought consistent with colitis. She was admitted to the hospital and started on vancomycin and metronidazole. Today, she reports improvement in her abdominal pain. She has had no nausea or vomiting. She still has had some diarrhea. She denies any prior history of colitis. She did undergo colonoscopy in 2016, which showed a tubular adenoma and 5-year followup was recommended. PAST MEDICAL HISTORY: 1. Alcohol abuse with recent detox admission as above. 2. Colon polyps. 3. Diverticulitis. 4. Stress-induced cardiomyopathy. 5. Prolonged QT interval. CURRENT MEDICATIONS: Her current medication list is reviewed in the chart. ALLERGIES: THERE ARE NONE REPORTED. FAMILY HISTORY: This is reviewed with the patient and is positive for colon cancer and 2 grandparents. SOCIAL HISTORY: She quit smoking and does not drink alcohol currently. REVIEW OF SYSTEMS: SKIN: No pruritus. HEENT: Negative. CARDIOPULMONARY: She denies shortness of breath or chest pain. GASTROINTESTINAL: As above. GENITOURINARY: Negative. NEUROPSYCHIATRIC: Negative. PHYSICAL EXAMINATION: GENERAL: Reveals a pleasant female, sitting comfortably in bed. She is tearful. VITAL SIGNS: Reviewed in the electronic medical record and are stable. SKIN: Anicteric. HEENT: No scleral icterus. NECK: Without lymphadenopathy or thyromegaly. LUNGS: Clear. HEART: Regular rate and rhythm, S1, S2. No murmur. ABDOMEN: Soft without focal masses or tenderness. Bowel sounds are present. No organomegaly is noted. There is some mild tenderness to palpation in the left lower quadrant, but no guarding or rebound. EXTREMITIES: Without edema. LABORATORY DATA: Shows a white blood cell count of 15.6, down from 16.5 on admission, hematocrit 32.5. CT scanning shows the findings as noted above. IMPRESSION: Clostridium difficile colitis. This is likely due to her recent treatment with antibiotics for her diverticulitis. She is currently being treated with vancomycin and Flagyl and clinically is improving. I would recommend gradually advancing her diet as tolerated. I discussed with her use of probiotics as an outpatient. I recommended she undergo colonoscopy in approximately 8 to 12 weeks given her recent diverticulitis and colitis difficulties. Thanks for asking me to see her. I will follow her in the hospital with you. MD ELLIOTT Brantley/DEVIN / [phone]
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
[2020-08-06 03:07] VITALS: BP 119/72; PULSE 69; RESP 16; TEMP 36.8; O2SAT 98
[2020-08-06] MEDS: 0.9 % Sodium Chloride 1,000 ML 100 ML IVCONT ×3 (03:31→23:37)
[2020-08-06] MEDS: vancomycin HCL 125 MG CAPSULE PO ×3 (06:29→18:40)
[2020-08-06 08:00] VITALS: BP 113/70; PULSE 77; RESP 16; TEMP 36.8; O2SAT 97
[2020-08-06] MEDS: buPROPion HCl XL 150 MG TAB.ER.24H PO (08:09)
[2020-08-06] MEDS: Metoprolol Succinate ER 25 MG TAB.ER.24H PO (08:09)
[2020-08-06] MEDS: 0.9 % Sodium Chloride Flush 3 ML SYRINGE IVFLUSH (08:10)
[2020-08-06] MEDS: LORazepam 0.5 MG TABLET PO ×2 (08:17→20:24)
[2020-08-06 12:00] VITALS: BP 124/77; PULSE 69; RESP 18; TEMP 36.6; O2SAT 100
[2020-08-06 15:41] VITALS: BP 108/66; PULSE 69; RESP 18; TEMP 36.8; O2SAT 98
--- NOTE | 2020-08-06 17:47 | P.PNIM_ITS ---
Subjective Subjective Date of Service: 08/06/20 Interval History: C diff colitis Review of Systems Patient still has patient still has abdominal pain, diarrhea but says that somewhat better than yesterday Denies any fever or chills or any urinary complaints or any chest pain. Physical Exam Vital Signs: Vital Signs: Last Vital Signs Temp 98.3 F 08/06/20 15:41 Pulse 69 08/06/20 15:41 Resp 18 08/06/20 15:41 BP 108/66 08/06/20 15:41 Pulse Ox 98 08/06/20 15:41 Body Mass Index 26.1 Physical exam: Cvs: rrr, [id number] , no murmur res: clear to auscultation ,no rhonchii or wheezing abd: no rebound or guarding , still has abdominal pain, bs present. ext pulses present , no cyanosis neuro: axo3 , nonfocal. Objective Data Current Medications Generic Name Dose Route Start Last Admin Trade Name Freq PRN Reason Stop Dose Admin Acetaminophen 650 mg 08/04/20 21:57 08/05/20 07:31 Acetaminophen 325 Mg Tablet PO 650 mg Q6H PRN Administration Pain, Mild (Pain Scale 1-3) Bupropion HCl 150 mg 08/06/20 09:00 08/06/20 08:09 Bupropion Hcl Xl 150 Mg Tab.Er.24h PO 150 mg DAILY SELENA Administration Sodium Chloride 1,000 mls @ 100 mls/hr 08/04/20 21:57 08/06/20 13:33 Ns IVCONT 100 mls/hr .Q10H SELENA Administration Lorazepam 0.5 mg 08/05/20 12:18 08/06/20 08:17 Lorazepam 0.5 Mg Tablet PO 0.5 mg BID PRN Administration Anxiety Metoprolol Succinate 25 mg 08/06/20 09:00 08/06/20 08:09 Metoprolol Succinate Er 25 Mg Tab.Er.24h PO 25 mg DAILY SELENA Administration Protocol Morphine Sulfate 1 mg 08/05/20 08:17 08/05/20 15:55 Morphine Sulfate 2 Mg/Ml Cartridge IVPUSH 1 mg Q6H PRN Administration Pain and Fever Ondansetron HCl 4 mg 08/04/20 21:57 08/05/20 07:33 Ondansetron Hcl 4 Mg/2 Ml Vial IVPUSH 4 mg Q8H PRN Administration Nausea and Vomiting Sodium Chloride 3 ml 08/05/20 00:00 08/06/20 13:35 0.9 % Sodium Chloride Flush 3 Ml Syringe IVFLUSH Not Given QSHIFT SELENA Vancomycin HCl 125 mg 08/05/20 00:00 08/06/20 12:02 Vancomycin Hcl 125 Mg Capsule PO 125 mg Q6H SELENA Administration Labs CBC & Chem 7: 08/05/20 05:48 08/05/20 05:48 Microbiology Microbiology Results: Microbiology 08/04/20 17:24 Stool Stool Culture - Preliminary Normal so far. 08/04/20 11:08 Blood - Venous Blood Culture - Preliminary No growth after 48 hours. 08/04/20 10:58 Blood - Venous Blood Culture - Preliminary No growth after 48 hours. Assessment and Plan (1) Colitis: Problem details: She has Cdiff This is probably due to antibiotic use Status: Acute (2) Encephalopathy: Status: Resolved (3) Prolonged QT interval: (4) Altered mental status: Status: Resolved (5) Abnormal ECG: Status: Acute (6) Alcoholism: Status: Resolved Assessment and Plan: 1.Severe sepsis secondary to C diff colitis probably Initially started on IV Flagyl and p.o. Vanco Change to full we liquid diet, if tolerates then will switch to regular diet. ID evaluation-advised to stop Flagyl and continue p.o. Vanco for now. colonoscopy in approximately 8 to 12 weeks given her recent diverticulitis and colitis difficulties. 2.History of takotsubo question she said her recent echo in the [place] was was told to her was fine, troponin negative EKG seen looks similar continue her beta-aristides metoprolol Cardio saw the patient -echo : Normal left ventricular cavity size. There is normal left ventricular wall thickness. The left ventricular systolic function is normal. The visually estimated ejection fraction is between 60-65%. There is no evidence of regional wall motion abnormalities.
[2020-08-06 18:56] VITALS: BP 146/72; PULSE 80; RESP 18; TEMP 36.7; O2SAT 98
[2020-08-06 23:19] VITALS: BP 110/71; PULSE 69; RESP 18; TEMP 36.2; O2SAT 96
[2020-08-07] MEDS: vancomycin HCL 125 MG CAPSULE PO ×3 (00:22→11:14)
[2020-08-07 03:40] VITALS: BP 127/73; PULSE 78; RESP 18; TEMP 36.9; O2SAT 97
[2020-08-07 08:00] VITALS: BP 133/84; PULSE 70; RESP 18; TEMP 36.1; O2SAT 97
[2020-08-07 08:34] VITALS: BP 133/84; PULSE 70
[2020-08-07] MEDS: buPROPion HCl XL 150 MG TAB.ER.24H PO (08:34)
[2020-08-07] MEDS: Metoprolol Succinate ER 25 MG TAB.ER.24H PO (08:34)
[2020-08-07] MEDS: 0.9 % Sodium Chloride 1,000 ML 100 ML IVCONT (09:33)
--- NOTE | 2020-08-07 10:22 | P.PNCA_ITS ---
Subjective Subjective Interval history: She states that she feels okay. No specific cardiac symptoms. Review of Systems Review of Systems Cardiac-no angina or shortness of breath or palpitations or dizzy spells or syncopal episodes. Remainder of the 10 system review negative. Reports system reviewed and no additional complaints, except as documented and Reports as per HPI Physical Exam Vital Signs: Last Vital Signs Temp 97.0 F 08/07/20 08:00 Pulse 70 08/07/20 08:34 Resp 18 08/07/20 08:00 BP 133/84 08/07/20 08:34 Pulse Ox 97 08/07/20 08:00 Body Mass Index 26.1 Comfortable, no distress No pallor, icterus or cyanosis HEENT -unremarkable JVD- normal Cardiac- normal heart sounds, no murmurs, gallops or rubs, normal PMI Respiratory-normal breath sounds bilaterally, no crackles, no wheeze Abdomen- soft, nontender Neuro- alert and oriented Lower extremities- no significant edema, warm well perfused Results Labs and Meds Result diagrams: 08/05/20 05:48 08/05/20 05:48 Progress Note: A&P Assessment and plan (1) Abnormal ECG: Status: Acute (2) Stress-induced cardiomyopathy: Status: Inactive (3) Precordial chest pain: Status: Acute Assessment and Plan: Recent diagnosis of stress-induced cardiomyopathy. Repeat echocardiogram without any obvious wall motion abnormalities. With regard to the chest pain, s ounds very atypical for cardiac. Negative high sensitivity troponins. Outpatient stress testing can be arranged. Fall Risk Details Current Medications: Current Medications Generic Name Dose Route Start Last Admin Trade Name Florencioq PRN Reason Stop Dose Admin Acetaminophen 650 mg 08/04/20 21:57 08/05/20 07:31 Acetaminophen 325 Mg Tablet PO 650 mg Q6H PRN Administration Pain, Mild (Pain Scale 1-3) Bupropion HCl 150 mg 08/06/20 09:00 08/07/20 08:34 Bupropion Hcl Xl 150 Mg Tab.Er.24h PO 150 mg DAILY SELENA Administration Sodium Chloride 1,000 mls @ 100 mls/hr 08/04/20 21:57 08/07/20 09:33 Ns IVCONT 100 mls/hr .Q10H SELENA Administration Lorazepam 0.5 mg 08/05/20 12:18 08/06/20 20:24 Lorazepam 0.5 Mg Tablet PO 0.5 mg BID PRN Administration Anxiety Metoprolol Succinate 25 mg 08/06/20 09:00 08/07/20 08:34 Metoprolol Succinate Er 25 Mg Tab.Er.24h PO 25 mg DAILY SELENA Administration Protocol Morphine Sulfate 1 mg 08/05/20 08:17 08/05/20 15:55 Morphine Sulfate 2 Mg/Ml Cartridge IVPUSH 1 mg Q6H PRN Administration Pain and Fever Ondansetron HCl 4 mg 08/04/20 21:57 08/05/20 07:33 Ondansetron Hcl 4 Mg/2 Ml Vial IVPUSH 4 mg Q8H PRN Administration Nausea and Vomiting Sodium Chloride 3 ml 08/05/20 00:00 08/07/20 08:46 0.9 % Sodium Chloride Flush 3 Ml Syringe IVFLUSH Not Given QSHIFT SELENA Vancomycin HCl 125 mg 08/05/20 00:00 08/07/20 06:01 Vancomycin Hcl 125 Mg Capsule PO 125 mg Q6H SELENA Administration Time Spent With Patient Time: Total time spent is greater than 50% in coordination of care (as documented) at patient's floor/unit and/or counseling patient: Time with patient: 15 - 24 minutes Procedures Abscess I/D Date of Service: 08/07/20
--- NOTE | 2020-08-07 11:11 | P.DS_ITS ---
DS: Providers Provider Date of admission: This patient is seen and examined with APC. Lab imaging, EKG reviewed. Physical exam and assessment and plan coordinated in APCs note, Agree with the plan in addition:08/04/20 20:15 Primary care physician: Riri Cheney NP Consults: 08/04/20 21:57 Consult to Cardiology Routine Consulting Provider: Jourdan Mosher Reason for consultation: chest pain, ? recent stress cardiomyopathy diagnosis Has provider been notified: No Consult to Gastroenterology Routine Consulting Provider: Tobias Card Reason for consultation: cdiff colitis Has provider been notified: No 08/05/20 11:59 Consult to Care Team Routine Comment: Reason for consultation: anxiety/depression DS: Diagnosis Discharge Diagnosis (1) Abnormal ECG: Status: Acute (2) Stress-induced cardiomyopathy: Status: Inactive (3) Precordial chest pain: Status: Acute DS: Medications Discharge Medications Home Medications: Home Medications Medication Instructions Recorded Confirmed bupropion HCl [Wellbutrin XL] 150 mg PO DAILY 08/05/20 08/05/20 lorazepam 0.5 mg PO BID PRN 08/05/20 08/05/20 Previous Rx's Medication Instructions Recorded metoprolol succinate [Toprol XL] 25 mg PO DAILY #30 tab 07/13/20 DS: Summary Hospital Course Hospital Course: 54 year old women presenting with worsening abdominal pain and diarrhea. She reported that she was admitted to [facility] July 15- and was treated for sepsis secondary to diverticulitis. She denied history of this in the past. Of note she happened to be at [facility] for detox. Just prior to that she was admitted to [facility] for Alcohol abuse , cardiomyopathy, encephalopathy, depression with suicidal ideation. Apparently, there was some concern for abuse in the whole although there is no clarification on that. During that admission she was found to have Takotsubo's cardiomyopathy for which she was started on Toprol. She was also treated for alcohol withdrawal with phenobarbital. today, she reported left sided chest pain with radiation to mid chest that seems to be getting worse throughout the day with no other associated symptoms, no acute EKG changes and flat troponin. Unfortunately , she was also found to have C diff which is likely related to recent antibiotic use for diverticulitis, abdominal CT showing colitis. She denied recent travel, fever at home, improperly cooked foods. She was noted to have fever of 101, tachycardia and leukocytosis. She was given Levaquin and flagyl and will be admitted for further management and treatment of acute C diff colitis. Hospital Course problem hopkins section: 1. Patient initially admitted for severe sepsis secondary to C diff colitis Subsequently patient was put on bowel rest, and started on IV Flagyl and p.o. Vanco. With above management patient condition improved significantly and going home with p.o. vancomycin. In addition during this admission patient was seen by infectious disease and recommended to switch him to p.o. vancomycin see improved.Gi recomended: Probable need colonoscopy in approximately 8 to 12 weeks given her recent diverticulitis and colitis difficulties. Follow-up with Dr. Card outpatient. 2.History of takotsubo question she said her recent echo in the [place] was was told to her was fine, troponin negative EKG seen looks similar Cardio saw the patient -echo : Normal left ventricular cavity size. There is normal left ventricular wall thickness. The left ventricular systolic function is normal. The visually estimated ejection fraction is between 60-65%. There is no evidence of regional wall motion abnormalities. continue her beta-aristides metoprolol. Seen by Cardiology recommended to continue beta-aristides. No further intervention at present, cardio may arrange outpatient appointment as needed. Above management discussed with the patient in detail length she understand and in agreement with the above plan, time spent 50 minutes and 50% time spent on counseling. Significant findings: As above. Procedures performed: None. Treatment and response: As above. Complications: None. Time Spent with Patient Time attestation: Total time spent providing and/or coordinating discharge services: Physical Exam Vital Signs: Vital Signs: Last Vital Signs Temp 97.0 F 08/07/20 08:00 Pulse 70 08/07/20 08:34 Resp 18 08/07/20 08:00 BP 133/84 08/07/20 08:34 Pulse Ox 97 08/07/20 08:00 Body Mass Index 26.1 Physical exam: heent: eyes anicteric , no discharge. Cvs: rrr, [id number] , no murmur res: clear to auscultation ,no rhonchii or wheezing abd: no rebound or guarding ,nt, bs present. ext pulses present , no cyanosis neuro: axo3 , nonfocal. DS: Data Data Completed and Pending Completed studies during hospitalization [Text1]: Procedures Detoxification Services for Substance Abuse Treatment (07/09/20) Drainage of Spinal Canal, Percutaneous Approach, Diagnostic (07/09/20) Fluoroscopy of Spinal Cord (07/09/20) Labs on day of discharge: 08/04/20 ECG 12 lead EKG Stat 08/04/20 10:28 0.9 % Sodium Chloride [Ns] 1,000 ml IVCONT 999 mls/hr Acetaminophen [Tylenol] 650 mg PO ONCE STA 08/04/20 10:58 Complete Blood Count Auto Diff Stat Comprehensive Met. Panel Stat Lactic Acid Stat Lipase Stat Liver Panel Stat Partial Thromboplastin Time Stat Prothrombin Time INR Stat 08/04/20 11:40 0.9 % Sodium Chloride [Ns] 1,000 ml IVCONT Per Protocol mls/hr 08/04/20 12:07 CT abdomen pelvis w con Stat 08/04/20 13:20 UA CC w/rflx Micro + Cult Stat 08/04/20 13:21 iohexoL 350 MG/ML [Omnipaque 350 MG/ML] 85 ml IV ONCE ONE 08/04/20 14:19 ~Lactic Acid-LAB USE ONLY Stat 08/04/20 15:25 levoFLOXacin/D5W [Levaquin] 750 mg in 150 ml IV ONCE metroNIDAZOLE/NS [Flagyl] 500 mg in 100 ml IV ONCE 08/04/20 15:48 Morphine Sulfate 4 mg IVPUSH ONCE STA 08/04/20 15:58 Ketorolac Tromethamine [Toradol] 30 mg IVPUSH ONCE STA 08/04/20 16:41 EKG Documentation DIRECTED 08/04/20 17:02 Consult Rx Perform Med Rec 1 each MISCELLANE ONCE PRN 08/04/20 17:05 CDiff with Reflex to PCR Stat Leukocytes Stool Qualitative Stat 08/04/20 17:16 Troponin-I High Sensitivity Stat 08/04/20 17:17 COVID-19 ID NOW ([place]) Stat 08/04/20 17:41 Morphine Sulfate 2 mg IM ONCE ONE 08/04/20 17:42 Transfer Order Routine 08/04/20 Dinner Clear Liquid Diet 08/05/20 00:00 metroNIDAZOLE/NS [Flagyl] 500 mg in 100 ml IV Q8H 08/05/20 00:19 Morphine Sulfate 1 mg IVPUSH ONCE ONE 08/05/20 05:48 Basic Metabolic Panel DAILY@0600 Complete Blood Count Auto Diff DAILY@0600 SLIDE REVIEW Routine 08/05/20 12:07 LORazepam [Ativan] 1 mg PO BID PRN 08/05/20 13:00 CA echo limited Routine vancomycin HCL [Vancocin] 125 mg PO Q6H 08/05/20 17:00 levoFLOXacin/D5W [Levaquin] 500 mg in 100 ml IV Q24H 08/06/20 Lunch Full Liquid Diet Laboratory Last Values WBC 15.6 X10*3/uL (4.8-10.8) H 08/05/20 05:48 RBC 3.09 X10*6/uL (4.20-5.50) L 08/05/20 05:48 Hgb 10.6 g/dl (12.0-16.0) L 08/05/20 05:48 Hct 32.5 % (37-47) L 08/05/20 05:48 MCV 105.2 fL (80-98) H 08/05/20 05:48 MCH 34.3 pg (27.0-33.0) H 08/05/20 05:48 MCHC 32.6 g/dl (31.0-35.0) 08/05/20 05:48 RDW 13.3 % (11.0-16.0) 08/05/20 05:48 Plt Count 281 X10*3/uL (160-400) 08/05/20 05:48 MPV 12.1 fL (9.4-12.3) 08/05/20 05:48 Immature Gran % (Auto) 0.4 % (0.0-0.4) 08/05/20 05:48 Neut % (Auto) 75.9 % (45-73) H 08/05/20 05:48 Lymph % (Auto) 7.2 % (20-40) L 08/05/20 05:48 Whitman % (Auto) 15.9 % (2-11) H 08/05/20 05:48 Eos % (Auto) 0.3 % (0-4) 08/05/20 05:48 Baso % (Auto) 0.3 % (0-2) 08/05/20 05:48 Lymph # (Auto) 1.1 X10*3/uL (1.2-4.9) L 08/05/20 05:48 Whitman # (Auto) 2.5 X10*3/uL (0.1-1.2) H 08/05/20 05:48 Eos # (Auto) 0.0 X10*3/uL (0.0-0.4) 08/05/20 05:48 Baso # (Auto) 0.1 X10*3/uL (0.0-0.2) 08/05/20 05:48 Abs Immat Gran (auto) 0.07 X10*3/uL (0.00-0.03) H 08/05/20 05:48 Absolute Neuts (auto) 11.8 X10*3/uL (2.0-8.3) H 08/05/20 05:48 Absolute Nucleated RBC 0.000 X10*3/uL (0.0-0.012) 08/05/20 05:48 Nucleated RBC % (auto) 0.0 /100WBC (0.0-0.2) 08/05/20 05:48 Smear Tech's Comments VERIFIED 08/05/20 05:48 PT 12.8 SEC (10.8-13.0) 08/04/20 10:58 INR 1.1 (0.9-1.1) 08/04/20 10:58 APTT 31.3 SEC (24.1-38.0) 08/04/20 10:58 Sodium 131 mmol/L (135-145) L 08/05/20 05:48 Potassium 3.3 mmol/l (3.3-5.1) 08/05/20 05:48 Chloride 103 mmol/L (96-108) 08/05/20 05:48 Carbon Dioxide 17 mmol/L (22-29) L 08/05/20 05:48 Anion Gap 14 (12-20) 08/05/20 05:48 BUN 4 mg/dL (9-16) L 08/05/20 05:48 Creatinine 0.70 mg/dL (0.5-1.4) 08/05/20 05:48 Estim Creat Clear Calc 82.5 08/05/20 05:48 Estimated GFR > 60 08/05/20 05:48 Random Glucose 111 mg/dL (60-115) 08/05/20 05:48 Lactic Acid 2.3 mmol/L (0.5-2.0) H* 08/04/20 10:58 Lactic Acid Fup @ 2Hr 0.9 mmol/L (0.5-2.0) 08/04/20 14:19 Calcium 8.0 mg/dL (8.4-10.2) L D 08/05/20 05:48 Total Bilirubin 0.6 mg/dL (0.0-1.0) 08/04/20 10:58 Direct Bilirubin 0.2 mg/dL (0.0-0.5) 08/04/20 10:58 AST 23 U/L (5-31) D 08/04/20 10:58 ALT 22 U/L (0-31) 08/04/20 10:58 Alkaline Phosphatase 64 U/L (39-117) D 08/04/20 10:58 Troponin I High Sens 3.9 ng/L (<3.5-17.0) D 08/04/20 17:16 Total Protein 6.4 g/dL (6.5-8.0) L 08/04/20 10:58 Albumin 4.0 g/dL (3.5-5.0) 08/04/20 10:58 Lipase 17 U/L (8-78) 08/04/20 10:58 Urine Color YELLOW 08/04/20 13:20 Urine Appearance CLEAR 08/04/20 13:20 Urine pH 6.0 (5.0-8.0) 08/04/20 13:20 Ur Specific [place] <= 1.005 (1.005-1.025) 08/04/20 13:20 Urine Protein NEG MG/DL (NEG-TRACE) 08/04/20 13:20 Urine Glucose (UA) NEG MG/DL (NEG) 08/04/20 13:20 Urine Ketones NEG MG/DL (NEG) 08/04/20 13:20 Urine Blood NEG (NEG) 08/04/20 13:20 Urine Nitrite NEG (NEG) 08/04/20 13:20 Ur Leukocyte Esterase NEG (NEG) 08/04/20 13:20 Stool Leukocytes, Qual MOD: 3-9/OIF (NEGATIVE) 08/04/20 17:05 C. difficile Toxin A&B Positive (Negative) A 08/04/20 17:05 C. difficile Antigen Positive (Negative) A 08/04/20 17:05 C. difficile Interpret SEE NOTE 08/04/20 17:05 COVID-19 ([facility]) Negative (Negative) 08/04/20 17:17 COVID-19 Clin Com See Note 08/04/20 17:17 Preliminary micro results at discharge 08/04/20 17:24 Stool Culture - Preliminary Stool Normal so far. 08/04/20 11:08 Blood Culture - Preliminary Blood - Venous No growth after 48 hours. 08/04/20 10:58 Blood Culture - Preliminary Blood - Venous No growth after 48 hours. Discharge Plan Discharge Patient Disposition: Home, Self-Care Referrals: Riri Cheney NP [Primary Care Provider] - 1 Week (With Donna Aikns 08/17/20 @ 10:30 am. If you can't keep this appointment please call and reschedule.) Discharge Medications: New vancomycin 125 mg Capsule 125 mg PO Q6H Qty: 36 RF: 0 Continued metoprolol succinate [Toprol XL] 25 mg tablet extended release 24 hr 25 mg PO DAILY Qty: 30 RF: 0 bupropion HCl [Wellbutrin XL] 150 mg Tablet Extended Release 24 Hr 150 mg PO DAILY RF: 0 lorazepam 0.5 mg Tablet 0.5 mg PO BID PRN (Reason: Anxiety) RF: 0 Discharge Orders: Discharge Order (Routine); Ordered 08/07/20 Ordered By: Hai Ingram Diet: advance to usual diet Activity on Discharge: As tolerated Visit Report Forms: Patient Portal Discharge page Care Plan Goals: Patient initially came with the abdominal pain and diarrhea: Subsequently found to have C diff colitis: Started on IV Flagyl and p.o. Vanco: Subsequently patient improved-going home with p.o. vancomycin-please complete the course. Patient is to follow-up with Dr. Card in 6-8 weeks after resolution of colitis for further need of colonoscopy out patiently, patient need to call Dr. Card office and make an appointment. Cardiology may arrange their own appointment as needed. Health Concerns: As above. Plan of Treatment: As above.
--- NOTE | 2020-08-07 11:28 | MHC.CM.PN ---
pt dcd home home no servceis
== END 2020-08-07 14:00 | disposition home or self-care (01) | DRG 720 ==
LOC: HO.ED 16:40 → HO.IMC 21:02
PROVIDERS: Nurse Practitioner Acute Care; Physician Assistant; Admitting Provider Internal Medicine; Emergency Provider Emergency Medicine; PCP Nurse Practitioner Family; Visit Provider Internal Medicine
DX: A41.9 Sepsis, unspecified organism (principal); I42.9 Cardiomyopathy, unspecified; A04.72 Enterocolitis due to Clostridium difficile, not specified as recurrent; I51.81 Takotsubo syndrome; R65.20 Severe sepsis without septic shock; F10.20 Alcohol dependence, uncomplicated; R94.31 Abnormal electrocardiogram [ECG] [EKG]; F41.9 Anxiety disorder, unspecified; Z20.828 Contact with and (suspected) exposure to other viral communicable diseases; Z87.891 Personal history of nicotine dependence; Z79.899 Other long term (current) drug therapy
CPT/HCPCS: 36415; 74177; 80048; 80053; 80076; 81003; 83605; 83690; 84484; 85025; 85610; 85730; 87040; 87045; 87046; 87324; 87449; 87635; 89055; 93005; 93308; 96361; 96365; 96375; 99219; 99285; J1885; J1956; J2270; J2405; Q9967

== ENCOUNTER 2020-08-18 08:59 | Outpatient (REF) | payer MEDICAID, SELFPAY | END 2020-08-18 09:00 | disposition home or self-care (01) | LOC: HO.LAB 08:59 | PROVIDERS: Visit Provider Internal Medicine | DX: Z20.828 Contact with and (suspected) exposure to other viral communicable diseases (principal) | CPT/HCPCS: C9803; U0003 ==

== ENCOUNTER 2020-09-22 08:49 | Outpatient (REF) | payer MEDICAID, SELFPAY | END 2020-09-22 08:50 | disposition home or self-care (01) | LOC: HO.LAB 08:49 | PROVIDERS: Visit Provider Internal Medicine | DX: Z20.828 Contact with and (suspected) exposure to other viral communicable diseases (principal) | CPT/HCPCS: 36415; C9803; U0003 ==

== ENCOUNTER 2020-09-27 18:46 | Emergency (ER) | payer MEDICAID, SELFPAY ==
[2020-09-27 19:36] VITALS: BP 104/89; BP 182/108; PULSE 105; PULSE 90; RESP 16; TEMP 36.6; O2SAT 96; O2SAT 98; BMI 23.0
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
[2020-09-27 20:20] LABS: Basophils Percent Auto 0.6 % (0-2); Eosinophils Absolute Auto 0.1 X10*3/uL (0.0-0.4); Eosinophils Percent Auto 1.2 % (0-4); Hematocrit 42.5 % (37-47); Hemoglobin 14.2 g/dl (12.0-16.0); Imm Gran Abs Auto 0.02 X10*3/uL (0.00-0.03); Imm Gran Pct Auto 0.3 % (0.0-0.4); Lymphocytes Absolute Auto 1.6 X10*3/uL (1.2-4.9); Lymphocytes Percent Auto 24.1 % (20-40); MANUAL DIFF FLAG NO; Mean Corpuscular HGB Conc 33.4 g/dl (31.0-35.0); Mean Corpuscular Hemoglobin 33.4 pg (27.0-33.0); Mean Platelet Volume 10.1 fL (9.4-12.3); Monocytes Absolute Auto 0.8 X10*3/uL (0.1-1.2); Monocytes Percent Auto 11.3 % (2-11); Neutrophils Absolute Auto 4.1 X10*3/uL (2.0-8.3); Neutrophils Percent Auto 62.5 % (45-73); Platelet Count 278 X10*3/uL (160-400); Red Blood Count 4.25 X10*6/uL (4.20-5.50); Red Cell Distribution Width 13.5 % (11.0-16.0); White Blood Count 6.6 X10*3/uL (4.8-10.8)
[2020-09-27 20:28] LABS: Amphetamine Screen Urine Not Detected (Not Detect); Barbiturates, Urine Not Detected (Not Detect); Benzodiazepines Screen Urine POSITIVE (Not Detect); Cannabinoid Screen Urine POSITIVE (Not Detect); Cocaine Screen Urine Not Detected (Not Detect); Opiate Screen Urine Not Detected (Not Detect); Phencyclidine Screen Urine Not Detected (Not Detect)
[2020-09-27 20:48] LABS: Alanine Aminotransferase 53 U/L (0-31); Albumin Level 4.5 g/dL (3.5-5.0); Alkaline Phosphatase 87 U/L (39-117); Anion Gap 21 (12-20); Aspartate Amino Transferase 68 U/L (5-31); Bilirubin Direct 0.3 mg/dL (0.0-0.5); Bilirubin Total 0.5 mg/dL (0.0-1.0); Blood Urea Nitrogen 8 mg/dL (9-16); Calcium 9.2 mg/dL (8.4-10.2); Carbon Dioxide 27 mmol/L (22-29); Chloride 100 mmol/L (96-108); Creatinine Clr Calc Pharmacy 71.1; Estimated Glomerular Filt Rate > 60; Glucose Random 81 mg/dL (60-115); Potassium 3.6 mmol/l (3.3-5.1); Sodium 144 mmol/L (135-145); Total Protein 7.1 g/dL (6.5-8.0)
[2020-09-27 20:49] LABS: Ethanol 258 mg/dL
--- NOTE | 2020-09-27 20:57 | PC.NURSE ---
SLEEPING IN BED AT THIS TIME. BREATHING EVEN, NON-LABORED. NO APPARENT DISTRESS.
--- NOTE | 2020-09-28 00:36 | ECG_ITS ---
Test Reason : CHST PAIN Blood Pressure : / mmHG Vent. Rate : 093 BPM Atrial Rate : 093 BPM P-R Int : 134 ms QRS Dur : 074 ms QT Int : 388 ms P-R-T Axes : 071 084 084 degrees QTc Int : 482 ms Normal sinus rhythm Prolonged QT Abnormal ECG When compared with ECG of 04-AUG-2020 17:00, Nonspecific T wave abnormality no longer evident in Inferior leads T wave inversion no longer evident in Lateral leads Referred By: Hua Martin Electronically Signed By:NILAY GARCÍA MD
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
--- NOTE | 2020-09-28 00:47 | XR_ITS ---
EXAMINATION: XR CHEST CLINICAL INFORMATION: Chest pain COMPARISON: 07/09/2020 TECHNIQUE: 2 views of the chest were obtained. FINDINGS: The lungs are well expanded. There is no focal consolidation, edema, or effusion. No pneumothorax. The cardiomediastinal silhouette is within normal limits. No acute osseous abnormality. XR/XR chest 2V IMPRESSION: Clear lungs.
[2020-09-28 02:00] VITALS: BP 136/87; PULSE 108; RESP 18; TEMP 37.2; O2SAT 96
[2020-09-28 02:47] LABS: Troponin-I High Sensitivity < 3.5 ng/L (<3.5-17.0)
[2020-09-28] MEDS: hydrOXYzine HCL 25 MG TABLET PO (03:10)
[2020-09-28 06:00] VITALS: RESP 16
== END 2020-09-28 06:43 | disposition home or self-care (01) ==
PROVIDERS: Physician Assistant; Emergency Provider Emergency Medicine Emergency Medical Services; PCP Nurse Practitioner Family
DX: F33.1 Major depressive disorder, recurrent, moderate (principal); F10.129 Alcohol abuse with intoxication, unspecified; Y90.8 Blood alcohol level of 240 mg/100 ml or more; Z79.899 Other long term (current) drug therapy; Z87.891 Personal history of nicotine dependence
CPT/HCPCS: 36415; 71046; 80053; 80076; 80307; 80320; 82248; 84484; 85025; 93005; 99284

== ENCOUNTER 2020-10-12 12:02 | Outpatient (REF) | payer MEDICAID, SELFPAY | END 2020-10-12 12:03 | disposition home or self-care (01) | LOC: HO.LAB 12:02 | PROVIDERS: Visit Provider Internal Medicine | DX: Z20.822 Contact with and (suspected) exposure to COVID-19 (principal) | CPT/HCPCS: 36415; C9803; U0003 ==

== ENCOUNTER 2021-11-06 16:49 | Emergency (ER) | payer MEDICAID, SELFPAY ==
--- NOTE | ~2021-11-06 | XR_ITS ---
EXAMINATION: XR CHEST CLINICAL INFORMATION: Shortness of breath COMPARISON: Chest x-ray 09/28/2020 TECHNIQUE: 2 views of the chest were obtained. FINDINGS: Lungs are clear. No pulmonary vascular congestion. There is no pleural effusion. The heart size is normal. The cardiac and mediastinal contours are normal. There are multilevel degenerative changes of dorsal spine. XR/XR chest 2V IMPRESSION: No acute abnormality of chest.
[2021-11-06 17:00] VITALS: BP 152/97; BP 160/90; PULSE 108; PULSE 121; RESP 23; TEMP 37; O2SAT 93; O2SAT 96; BMI 23.9
--- NOTE | 2021-11-06 17:08 | ECG_ITS ---
Test Reason : CHEST PAIN Blood Pressure : / mmHG Vent. Rate : 106 BPM Atrial Rate : 106 BPM P-R Int : 152 ms QRS Dur : 082 ms QT Int : 340 ms P-R-T Axes : 064 084 077 degrees QTc Int : 451 ms Sinus tachycardia Otherwise normal ECG When compared with ECG of 28-SEP-2020 01:47, No significant change was found Referred By: Faustina Torres Electronically Signed By:NILAY GARCÍA MD
[2021-11-06] MEDS: LORazepam 1 MG TABLET 2 MG PO ×2 (17:26→22:47)
[2021-11-06] MEDS: 0.9 % Sodium Chloride 1,000 ML 999 ML IV (17:26)
--- NOTE | 2021-11-06 17:27 | ED_ITS ---
HPI - Alcohol General Chief Complaint: ETOH/Substance Use Stated Complaint: etoh Time Seen by Provider: 11/06/21 17:07 Source: patient and EMS Mode of arrival: EMS Limitations: no limitations History of Present Illness HPI narrative: 55-year-old female with a history of alcoholic cardiomyopathy, anxiety, depression here with reports of feeling stressed, anxious for the last 2 days. Patient tells me that she started drinking alcohol daily and September. Prior to this she had a history of alcoholism but was not using alcohol. She tells me since September she has been drinking daily. She drinks about 12 drinks a day. No additional substance use. Last drink just prior to arrival. Patient tells me over the last 4 days she has been feeling anxious, feeling very stressed and overwhelmed. She denies any suicidal thoughts. No depression. Patient does report some chest discomfort described as tightness over the last 4 days. She denies any nausea, vomiting, diaphoresis or shortness of breath associated with this. She received Moderna vaccine x2 Related Data Home Medications Medication Instructions Recorded Confirmed bupropion HCl 150 mg 24 hr tablet, 150 mg PO DAILY 08/05/20 11/06/21 extended release (Wellbutrin XL) lorazepam 0.5 mg tablet 0.5 mg PO BID PRN 08/05/20 11/06/21 naltrexone 50 mg tablet 1 tab PO DAILY 11/06/21 11/06/21 sertraline 50 mg tablet 1 tab PO DAILY 11/06/21 11/06/21 Previous Rx's Medication Instructions Recorded metoprolol succinate 25 mg 25 mg PO DAILY 90 Days #90 tab 09/08/20 tablet,extended release 24 hr (Toprol XL) Allergies Allergy/AdvReac Type Severity Reaction Status Date / Time No Known Allergies Allergy Verified 07/10/20 05:35 Review of Systems Review of Systems: Yes all other systems are reviewed and are negative Constitutional: Constitutional: Reports no additional constitutional complaints, Denies body ache(s), Denies chills, Denies fever(s), Denies headache(s) and Denies weakness Eyes: Eyes: Reports no additional eye complaints and Denies change in vision ENT: Reports system reviewed and no additional complaints, except as documented, Denies dizziness, Denies headache(s), Denies nasal congestion, Denies nasal discharge and Denies neck pain Cardiovascular: Cardiovascular: Reports no additional cardiovascular complaints, Reports chest pain, Denies leg edema and Denies dyspnea Respiratory: Respiratory: Reports no additional respiratory complaints, Denies cough and Denies dyspnea Gastrointestinal: Gastrointestinal: Reports no additional gastrointestinal complaints, Denies abdominal pain, Denies diarrhea, Denies nausea and Denies vomiting Genitourinary: Genitourinary: Reports no additional female genitourinary complaints and Denies urinary incontinence Musculoskeletal: Musculoskeletal: Reports no additional musculoskeletal complaints, Denies back pain, Denies arthralgias, Denies joint swelling, Denies neck pain, Denies numbness and Denies tingling Integumentary/Breasts: Skin/Breast: Reports system reviewed and no additional complaints, except as docu and Denies rash Neurologic: Reports system reviewed and no additional complaints, except as documented, Denies Abnormal speech present, Denies dizziness, Denies h eadache(s), Denies numbness, Denies tingling and Denies weakness Psychiatric: Psychiatric: Reports anxiety PMFSH Past Medical History Attestation statement: The following information was validated with the patient. Source: old records reviewed and nursing notes reviewed Medical History Abnormal ECG Alcoholism Anxiety Clostridial gastroenteritis Depression Diverticulitis History of ETOH abuse Precordial chest pain Prolonged QT interval Stress-induced cardiomyopathy Social History Social History Household Members: Friend(s) Household Members Other:: father and occasionally the son gray Housing: Apartment Do you presently have visiting nurse or other home services: No Unable to assess alcohol history related to: Unable to respond Alcohol intake: current Alcohol intake frequency: 3 or more drinks per day Patient Tobacco Use Status: Current everyday Tobacco user Use of substances other than those prescribed or required for medical reasons: No Substance Use Type: Marijuana Advance Directives: No Advance Directives Information Provided: No Patient : No service: No Current occupational status: unemployed Physical Exam ED Vital Signs: Vital Signs - 24 hr 11/06/21 17:00 11/06/21 18:30 11/06/21 22:37 Temperature 98.6 F 98.3 F 98.6 F Pulse Rate 108 H 100 107 H Respiratory Rate 23 H 20 20 Blood Pressure 152/97 H 127/76 143/86 H Pulse Oximetry 93 95 95 11/07/21 00:00 Temperature Pulse Rate 101 H Respiratory Rate 20 Blood Pressure 113/68 Pulse Oximetry 93 BMI result Body Mass Index 23.9 Const General: cooperative, healthy appearing, comfortable and no acute distress Orientation/consciousness: patient oriented x3 Limitations: no limitations HENMT Head: Yes normal to inspection Ears: hearing grossly normal bilaterally and TM's normal bilaterally General nose exam: Normal external nose present Face and sinus: Yes normal facial exam Mouth: Normal oral and palatal mucosa present Throat: Yes posterior oropharynx normal, Yes tonsils normal and Yes uvula midline Eyes General: appearance normal, both eyes and all related structures Pupils: Equal, round and reactive pupils present Neck Neck: Yes normal visual inspection, Yes full ROM, Yes no lymphadenopathy and Yes no meningeal signs Chest Chest palpation & inspection: normal inspection of the chest Resp Effort & Inspection: normal respiratory effort Auscultation: clear to auscultation bilaterally Cardio Rate: regular rate Peripheral pulses: Peripheral pulses 2+ throughout GI Inspection: Yes normal to inspection Palpation (GI): Soft to palpation and nontender General: Yes no CVA tenderness Back/Spine/Pelvis Back: no CVA tenderness Skin General skin exam: no rashes or lesions noted Neuro General: patient oriented x3 and no meningeal signs Cranial nerves: Yes CN's II-XII intact bilaterally, Yes Equal, round and reactive pupils present, Yes Bilaterally intact EOM present, Yes Nystagmus not present and Yes Normal facial strength present Cognition (Neuro): normal cognition Speech: No Abnormal speech present Gait exam (Neuro): Normal gait present Motor exam (neuro): 5/5 motor strength present throughout Sensory Exam: Normal double simultaneous stimulation for sensation Course Course Course Narrative: 55-year-old female with a history of alcoholic cardiomyopathy, anxiety, dep ression, alcohol abuse here with reports of feeling stressed, anxious, hopeless over the last 4 days. No suicidal thoughts. Also made some chest tightness which is nonspecific in nature. Will check labs, EKG, chest x-ray, COVID screen. Once medically cleared will need crisis evaluation. Patient is interested in detox. 1940-less likely ACS with negative troponin EKG with symptoms greater than 4 days. Reviewed labs. Patient had mild hyponatremia, hypokalemia hypochloremia likely secondary to volume loss and alcohol use. Patient received IV fluids and oral potassium supplementation with improvement. Tolerating p.o.. No longer tachycardic or hypertensive after receiving 1 dose of oral Ativan. 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 Plan for inpatient detox bed search and will hold patient in ER overnight. Patient has required p.r.n. Ativan. MDM - Alcohol Medical Records Attestation: I reviewed the patient's medical records. Lab Data Attestation: I reviewed the patient's lab results. Result diagrams: 11/06/21 17:24 11/06/21 19:11 Labs: Lab Results 11/06/21 11/06/21 11/06/21 Range/Units 17:24 17:24 17:24 WBC 6.6 (4.8-10.8) X10*3/uL RBC 4.08 L (4.20-5.50) X10*6/uL Hgb 13.3 (12.0-16.0) g/dl Hct 38.3 (37.0-47.0) % MCV 93.9 (80.0-98.0) fL MCH 32.6 (27.0-33.0) pg MCHC 34.7 (31.0-35.0) g/dl RDW 13.2 (11.0-16.0) % Plt Count 193 (160-400) X10*3/uL MPV 10.4 (9.4-12.3) fL Immature Gran % (Auto) 0.5 H (0.0-0.4) % Neut % (Auto) 73.5 H (45-73) % Lymph % (Auto) 12.5 L (20-40) % [place] % (Auto) 13.0 H (2-11) % Eos % (Auto) 0.0 (0-4) % Baso % (Auto) 0.5 (0-2) % Lymph # (Auto) 0.8 L (1.2-4.9) X10*3/uL [place] # (Auto) 0.9 (0.1-1.2) X10*3/uL Eos # (Auto) 0.0 (0.0-0.4) X10*3/uL Baso # (Auto) 0.0 (0.0-0.2) X10*3/uL Abs Immat Gran (auto) 0.03 (0.00-0.03) X10*3/uL Absolute Neuts (auto) 4.8 (2.0-8.3) x10*3/uL Absolute Nucleated RBC 0.000 (0.0-0.012) X10*3/uL Nucleated RBC % (auto) 0.0 (0.0-0.2) /100WBC PT 11.0 (9.9-13.0) SEC INR 1.0 (0.9-1.1) Sodium 131 L (135-145) mmol/L Potassium 3.1 L (3.3-5.1) mmol/L Chloride 85 L (96-108) mmol/L Carbon Dioxide 30 H (22-29) mmol/L Anion Gap 19 (12-20) BUN 3 L (9-16) mg/dL Creatinine 0.76 (0.5-1.4) mg/dL Estim Creat Clear Calc 67.5 Estimated GFR > 60 Random Glucose 116 H (60-115) mg/dL Calcium 9.8 D (8.4-10.2) mg/dL Magnesium 1.6 (1.6-2.6) mg/dL Total Bilirubin 0.7 (0.0-1.0) mg/dL Direct Bilirubin 0.3 (0.0-0.5) mg/dL AST 65 H (5-31) U/L ALT 52 H (0-31) U/L Alkaline Phosphatase 93 (39-117) U/L Troponin I High Sens (<3.5-17.0) ng/L Total Protein 7.0 (6.5-8.0) g/dL Albumin 4.4 (3.5-5.0) g/dL Urine Color Urine Appearance Urine pH (5.0-8.0) Ur Specific [place] (1.005-1.025) Urine Protein (NEG-TRACE) MG/DL Urine Glucose (UA) (NEG) MG/DL Urine Ketones (NEG) MG/DL Urine Blood (NEG) Urine Nitrite (NEG) Ur Leukocyte Esterase (NEG) Urine RBC (0) /HPF Urine WBC (0-4) /HPF Ur Squamous Epith Cells /LPF Urine Bacteria /LPF Urine Opiates Screen (Not Detect) Urine Fentanyl Screen (Not Detect) Ur Barbiturates Screen (Not Detect) Ur Phencyclidine Scrn (Not Detect) Ur Amphetamines Screen (Not Detect) U Benzodiazepines Scrn (Not Detect) Urine Cocaine Screen (Not Detect) U Marijuana (THC) Screen (Not Detect) Ethyl Alcohol mg/dL COVID-19 ([facility]) (Negative) COVID-19 Clin Com 11/06/21 11/06/21 11/06/21 Range/Units 17:24 17:24 17:24 WBC (4.8-10.8) X10*3/uL RBC (4.20-5.50) X10*6/uL Hgb (12.0-16.0) g/dl Hct (37.0-47.0) % MCV (80.0-98.0) fL MCH (27.0-33.0) pg MCHC (31.0-35.0) g/dl RDW (11.0-16.0) % Plt Count (160-400) X10*3/uL MPV (9.4-12.3) fL Immature Gran % (Auto) (0.0-0.4) % Neut % (Auto) (45-73) % Lymph % (Auto) (20-40) % [place] % (Auto) (2-11) % Eos % (Auto) (0-4) % Baso % (Auto) (0-2) % Lymph # (Auto) (1.2-4.9) X10*3/uL [place] # (Auto) (0.1-1.2) X10*3/uL Eos # (Auto) (0.0-0.4) X10*3/uL Baso # (Auto) (0.0-0.2) X10*3/uL Abs Immat Gran (auto) (0.00-0.03) X10*3/uL Absolute Neuts (auto) (2.0-8.3) x10*3/uL Absolute Nucleated RBC (0.0-0.012) X10*3/uL Nucleated RBC % (auto) (0.0-0.2) /100WBC PT (9.9-13.0) SEC INR (0.9-1.1) Sodium (135-145) mmol/L Potassium (3.3-5.1) mmol/L Chloride (96-108) mmol/L Carbon Dioxide (22-29) mmol/L Anion Gap (12-20) BUN (9-16) mg/dL Creatinine (0.5-1.4) mg/dL Estim Creat Clear Calc Estimated GFR Random Glucose (60-115) mg/dL Calcium (8.4-10.2) mg/dL Magnesium (1.6-2.6) mg/dL Total Bilirubin (0.0-1.0) mg/dL Direct Bilirubin (0.0-0.5) mg/dL AST (5-31) U/L ALT (0-31) U/L Alkaline Phosphatase (39-117) U/L Troponin I High Sens 4.4 (<3.5-17.0) ng/L Total Protein (6.5-8.0) g/dL Albumin (3.5-5.0) g/dL Urine Color Urine Appearance Urine pH (5.0-8.0) Ur Specific [place] (1.005-1.025) Urine Protein (NEG-TRACE) MG/DL Urine Glucose (UA) (NEG) MG/DL Urine Ketones (NEG) MG/DL Urine Blood (NEG) Urine Nitrite (NEG) Ur Leukocyte Esterase (NEG) Urine RBC (0) /HPF Urine WBC (0-4) /HPF Ur Squamous Epith Cells /LPF Urine Bacteria /LPF Urine Opiates Screen (Not Detect) Urine Fentanyl Screen (Not Detect) Ur Barbiturates Screen (Not Detect) Ur Phencyclidine Scrn (Not Detect) Ur Amphetamines Screen (Not Detect) U Benzodiazepines Scrn (Not Detect) Urine Cocaine Screen (Not Detect) U Marijuana (THC) Screen (Not Detect) Ethyl Alcohol 142 mg/dL COVID-19 ([facility]) Negative (Negative) COVID-19 Clin Com See Note 11/06/21 11/06/21 11/06/21 Range/Units 18:19 18:19 19:11 WBC (4.8-10.8) X10*3/uL RBC (4.20-5.50) X10*6/uL Hgb (12.0-16.0) g/dl Hct (37.0-47.0) % MCV (80.0-98.0) fL MCH (27.0-33.0) pg MCHC (31.0-35.0) g/dl RDW (11.0-16.0) % Plt Count (160-400) X10*3/uL MPV (9.4-12.3) fL Immature Gran % (Auto) (0.0-0.4) % Neut % (Auto) (45-73) % Lymph % (Auto) (20-40) % [place] % (Auto) (2-11) % Eos % (Auto) (0-4) % Baso % (Auto) (0-2) % Lymph # (Auto) (1.2-4.9) X10*3/uL [place] # (Auto) (0.1-1.2) X10*3/uL Eos # (Auto) (0.0-0.4) X10*3/uL Baso # (Auto) (0.0-0.2) X10*3/uL Abs Immat Gran (auto) (0.00-0.03) X10*3/uL Absolute Neuts (auto) (2.0-8.3) x10*3/uL Absolute Nucleated RBC (0.0-0.012) X10*3/uL Nucleated RBC % (auto) (0.0-0.2) /100WBC PT (9.9-13.0) SEC INR (0.9-1.1) Sodium 135 (135-145) mmol/L Potassium 3.0 L (3.3-5.1) mmol/L Chloride 94 L (96-108) mmol/L Carbon Dioxide 28 (22-29) mmol/L Anion Gap 16 (12-20) BUN 2 L (9-16) mg/dL Creatinine 0.72 (0.5-1.4) mg/dL Estim Creat Clear Calc 71.2 Estimated GFR > 60 Random Glucose 102 (60-115) mg/dL Calcium 9.0 D (8.4-10.2) mg/dL Magnesium (1.6-2.6) mg/dL Total Bilirubin (0.0-1.0) mg/dL Direct Bilirubin (0.0-0.5) mg/dL AST (5-31) U/L ALT (0-31) U/L Alkaline Phosphatase (39-117) U/L Troponin I High Sens (<3.5-17.0) ng/L Total Protein (6.5-8.0) g/dL Albumin (3.5-5.0) g/dL Urine Color YELLOW Urine Appearance CLEAR Urine pH 7.0 (5.0-8.0) Ur Specific [place] <= 1.005 (1.005-1.025) Urine Protein NEG (NEG-TRACE) MG/DL Urine Glucose (UA) NEG (NEG) MG/DL Urine Ketones NEG (NEG) MG/DL Urine Blood TRACE (NEG) Urine Nitrite NEG (NEG) Ur Leukocyte Esterase NEG (NEG) Urine RBC 0-2 (0) /HPF Urine WBC 0-2 (0-4) /HPF Ur Squamous Epith Cells TRACE /LPF Urine Bacteria TRACE /LPF Urine Opiates Screen Not Detected (Not Detect) Urine Fentanyl Screen Not Detected (Not Detect) Ur Barbiturates Screen Not Detected (Not Detect) Ur Phencyclidine Scrn Not Detected (Not Detect) Ur Amphetamines Screen Not Detected (Not Detect) U Benzodiazepines Scrn Not Detected (Not Detect) Urine Cocaine Screen Not Detected (Not Detect) U Marijuana (THC) Screen Not Detected (Not Detect) Ethyl Alcohol mg/dL COVID-19 ([facility]) (Negative) COVID-19 Clin Com Imaging Data Chest x-ray: Attestation: I personally reviewed and interpreted this imaging study as follows: Radiologist's impression: [place] [id number] XRay Report Signed Patient: Shelly Mac MR#: [id number] : 1965 Acct:[id number] Age/Sex: 55 / F ADM Date: 11/06/21 Loc: HO.ED Attending Dr: Ordering Physician: Faustina Torres NP Date of Service: 11/06/21 Procedure(s): XR chest 2V Accession Number(s): [id number] cc: Faustina Torres NP~ EXAMINATION: XR CHEST CLINICAL INFORMATION: Shortness of breath COMPARISON: Chest x-ray 09/28/2020 TECHNIQUE: 2 views of the chest were obtained. FINDINGS: ?Lungs are clear. No pulmonary vascular congestion. There is no pleural effusion. The heart size is normal. The cardiac and mediastinal contours are normal. There are multilevel degenerative changes of dorsal spine.? ? XR/XR chest 2V IMPRESSION: No acute abnormality of chest. ECG Data ECG #1: Attestation: I personally reviewed and interpreted this ECG as follows: ECG interpretation date: 11/06/21 ECG interpretation time: 17:48 Interpretation: Sinus tachycardia with a rate of 106, normal IN, normal QRS, normal QT Discharge Plan Discharge Clinical Impression: Alcoholic intoxication Patient Disposition: Still a Patient Prescriptions: No Action metoprolol succinate [Toprol XL] 25 mg tablet extended release 24 hr 25 mg PO DAILY 90 Days Qty: 90 1RF bupropion HCl [Wellbutrin XL] 150 mg Tablet Extended Release 24 Hr 150 mg PO DAILY 0RF lorazepam 0.5 mg Tablet 0.5 mg PO BID PRN (Reason: Anxiety) 0RF naltrexone 50 mg tablet 1 tab PO DAILY 0RF sertraline 50 mg tablet 1 tab PO DAILY 0RF
[2021-11-06 17:31] LABS: Basophils Percent Auto 0.5 % (0-2); Hematocrit 38.3 % (37.0-47.0); Hemoglobin 13.3 g/dl (12.0-16.0); Imm Gran Abs Auto 0.03 X10*3/uL (0.00-0.03); Imm Gran Pct Auto 0.5 % (0.0-0.4); Lymphocytes Absolute Auto 0.8 X10*3/uL (1.2-4.9); Lymphocytes Percent Auto 12.5 % (20-40); MANUAL DIFF FLAG NO; Mean Corpuscular HGB Conc 34.7 g/dl (31.0-35.0); Mean Corpuscular Hemoglobin 32.6 pg (27.0-33.0); Mean Corpuscular Volume 93.9 fL (80.0-98.0); Mean Platelet Volume 10.4 fL (9.4-12.3); Monocytes Absolute Auto 0.9 X10*3/uL (0.1-1.2); Neutrophils Absolute Auto 4.8 x10*3/uL (2.0-8.3); Neutrophils Percent Auto 73.5 % (45-73); Platelet Count 193 X10*3/uL (160-400); Red Blood Count 4.08 X10*6/uL (4.20-5.50); Red Cell Distribution Width 13.2 % (11.0-16.0); White Blood Count 6.6 X10*3/uL (4.8-10.8)
[2021-11-06 17:48] LABS: Ethanol 142 mg/dL
[2021-11-06 17:49] LABS: Alanine Aminotransferase 52 U/L (0-31); Albumin Level 4.4 g/dL (3.5-5.0); Alkaline Phosphatase 93 U/L (39-117); Anion Gap 19 (12-20); Aspartate Amino Transferase 65 U/L (5-31); Bilirubin Direct 0.3 mg/dL (0.0-0.5); Bilirubin Total 0.7 mg/dL (0.0-1.0); Blood Urea Nitrogen 3 mg/dL (9-16); Calcium 9.8 mg/dL (8.4-10.2); Carbon Dioxide 30 mmol/L (22-29); Chloride 85 mmol/L (96-108); Creatinine Clr Calc Pharmacy 67.5; Estimated Glomerular Filt Rate > 60; Glucose Random 116 mg/dL (60-115); Magnesium 1.6 mg/dL (1.6-2.6); Potassium 3.1 mmol/L (3.3-5.1); Sodium 131 mmol/L (135-145)
[2021-11-06 17:52] LABS: Troponin-I High Sensitivity 4.4 ng/L (<3.5-17.0)
[2021-11-06] MEDS: Potassium Chloride ER 20 MEQ TAB.ER.PRT 40 MEQ PO (18:08)
[2021-11-06 18:12] LABS: COVID-19 Test Negative (Negative)
[2021-11-06 18:28] LABS: Appearance Urine CLEAR; Color Urine YELLOW; Glucose Urine UA NEG (NEG); Leukocyte Esterase Urine NEG (NEG); Nitrite Urine NEG (NEG); Specific Gravity - Urine <= 1.005 (1.005-1.025); UACC Culture Trigger NO; Urine Blood TRACE (NEG); Urine Ketones NEG (NEG); Urine Protein NEG (NEG-TRACE)
[2021-11-06 18:30] VITALS: BP 127/76; PULSE 100; RESP 20; TEMP 36.8; O2SAT 95
[2021-11-06 18:41] LABS: RBC Urine 0-2 /HPF (0); Squamous Epithelial Cell Urine TRACE /LPF; WBC Urine 0-2 /HPF (0-4)
[2021-11-06 18:43] LABS: Bacteria Urine TRACE /LPF
[2021-11-06 18:45] LABS: Amphetamine Screen Urine Not Detected (Not Detect); Barbiturates, Urine Not Detected (Not Detect); Benzodiazepines Screen Urine Not Detected (Not Detect); Cannabinoid Screen Urine Not Detected (Not Detect); Cocaine Screen Urine Not Detected (Not Detect); Fentanyl, urine Not Detected (Not Detect); Opiate Screen Urine Not Detected (Not Detect); Phencyclidine Screen Urine Not Detected (Not Detect)
[2021-11-06 19:34] LABS: Anion Gap 16 (12-20); Blood Urea Nitrogen 2 mg/dL (9-16); Carbon Dioxide 28 mmol/L (22-29); Chloride 94 mmol/L (96-108); Creatinine Clr Calc Pharmacy 71.2; Estimated Glomerular Filt Rate > 60; Glucose Random 102 mg/dL (60-115); Sodium 135 mmol/L (135-145)
--- NOTE | 2021-11-06 20:53 | PHA.MEDREC ---
Pharmacy Consult ? Medication Reconciliation Pharmacy has completed the medication reconciliation. Patient stated that she hasn't taken her medication in weeks.
--- NOTE | 2021-11-06 20:55 | MHC.RECOVSUP ---
? Reason for consult:Recovery Support o ? ? ?Current location: ED13? o ? ? ?Identified substance use concern: Alcohol - Withdrawal - Support ? ?Intervention: o Community resources provided o Harm reduction discussion ? Plan: o Referral to [facility] ? Additional information:?I was able to connect with patient and review harm reduction strategies, triggers and red flags. Patient is looking for community resources, MAT, referral for nutritional health coach services and support. I was able to encourage patient with lived experience so she was comfortable to share what has been going with her. Patient also shared her history with alcoholism and feels shame and is embarrassed. I supported her with mentoring and positive affirmations. I left her resources.
--- NOTE | 2021-11-06 21:30 | PC.NURSE ---
JASS here to meet with kong
[2021-11-06 22:37] VITALS: BP 143/86; PULSE 107; RESP 20; TEMP 37; O2SAT 95
--- NOTE | 2021-11-06 22:40 | PC.NURSE ---
pt MARTHA an 8 - informed Faustina SOMMER, pt reports feeling hungry but nauseas. will attempt PO challenge with saltines and annmarie darryl
[2021-11-07] VITALS: BP 113/68; PULSE 101; RESP 20; O2SAT 93
[2021-11-07] MEDS: ondansetron HCL 4 MG/2 ML VIAL IVPUSH
[2021-11-07 02:38] VITALS: PULSE 86; RESP 16; O2SAT 92
[2021-11-07 04:00] VITALS: BP 120/70; PULSE 82; RESP 16; O2SAT 94
[2021-11-07 06:00] VITALS: BP 102/73; PULSE 79; RESP 16; O2SAT 94
[2021-11-07 10:25] VITALS: BP 134/85; PULSE 90; RESP 18; TEMP 36.9; O2SAT 94
[2021-11-07] MEDS: LORazepam 1 MG TABLET 2 MG PO (10:53)
== END 2021-11-07 11:30 | disposition other institution (70) ==
PROVIDERS: Nurse Practitioner Family; Emergency Provider Internal Medicine; PCP Nurse Practitioner Family
DX: F10.220 Alcohol dependence with intoxication, uncomplicated (principal); Y90.6 Blood alcohol level of 120-199 mg/100 ml; R00.0 Tachycardia, unspecified; F41.9 Anxiety disorder, unspecified; Z20.822 Contact with and (suspected) exposure to COVID-19; F17.200 Nicotine dependence, unspecified, uncomplicated; F12.90 Cannabis use, unspecified, uncomplicated; Z79.899 Other long term (current) drug therapy
CPT/HCPCS: 36415; 71046; 80048; 80076; 80307; 81001; 82077; 83735; 84484; 85025; 85610; 87635; 93005; 96361; 96374; 99285; J2405

== ENCOUNTER 2021-11-09 13:46 | Emergency (ER) | payer MEDICAID, SELFPAY ==
--- NOTE | 2021-11-09 14:12 | ED.ALCOHOL ---
HPI - Alcohol General Chief Complaint: ETOH/Substance Use <ROS Beltran - Last Filed: 11/09/21 17:33> Stated Complaint: ETOH INTOX <ROS Beltran - Last Filed: 11/09/21 17:33> Time Seen by Provider: 11/09/21 14:05 <ROS Beltran - Last Filed: 11/09/21 17:33> Source: patient, EMS and old records reviewed <ROS Beltran - Last Filed: 11/09/21 17:33> Mode of arrival: EMS <ROS Beltran - Last Filed: 11/09/21 17:33> Limitations: no limitations <ROS Beltran - Last Filed: 11/09/21 17:33> History of Present Illness HPI narrative: 55-year-old female with a history of alcohol abuse and dependence, history of paroxysmal atrial fibrillation not on anticoagulation, anxiety, depression who presents to the ER from home via EMS seeking alcohol detox. She reports after 22 years in AA she relapsed on alcohol about 2 months ago. She reports increased stressors at home, taking care of her elderly father around the clock who is very demanding and demoralized and to her. She has been drinking heavy amounts of wine and cider, about 12-18 drinks per day. Last drink was just before coming in. She is tearful and depressed on arrival but denies any suicidal or homicidal thoughts. She wants to quit drinking, history withdrawal in the past and states it is ?terrible. She reports being seen here in the ER 2 days ago however left because she was worried about her father. She reports unable to get hold of him and was unsure who is taking care of at the time. She reports her 4 kids are now going to help take care of her father while she is getting help for her alcohol problem. <ROS Beltran - Last Filed: 11/09/21 17:33> MD complaint: alcohol intoxication, alcohol dependence and desires rehab <ROS Beltran - Last Filed: 11/09/21 17:33> Last drink: Just prior to admission <ROS Beltran - Last Filed: 11/09/21 17:33> Chronic alcohol use: Yes <ROS Beltran - Last Filed: 11/09/21 17:33> Previous visits for alcohol intoxication: Yes <ROS Beltran Last Filed: 11/09/21 17:33> Recent trauma: No <ROS Beltran Last Filed: 11/09/21 17:33> Associated symptoms: depression and other (diarrhea) <ROS Beltran Last Filed: 11/09/21 17:33> Treatments prior to arrival: none <ROS Beltran Last Filed: 11/09/21 17:33> Related Data Home Medications: Home Medications Medication Instructions Recorded Confirmed bupropion HCl 150 mg 24 hr tablet, 150 mg PO DAILY 08/05/20 11/06/21 extended release (Wellbutrin XL) lorazepam 0.5 mg tablet 0.5 mg PO BID PRN 08/05/20 11/06/21 naltrexone 50 mg tablet 1 tab PO DAILY 11/06/21 11/06/21 sertraline 50 mg tablet 1 tab PO DAILY 11/06/21 11/06/21 Previous Rx's Medication Instructions Recorded metoprolol succinate 25 mg 25 mg PO DAILY 90 Days #90 tab 09/08/20 tablet,extended release 24 hr (Toprol XL) metoprolol succinate 25 mg 25 mg PO DAILY 30 Days #30 tab 11/09/21 tablet,extended release 24 hr naltrexone 50 mg tablet 50 mg PO DAILY 30 Days #30 tab 11/09/21 <ROS Beltran Last Filed: 11/09/21 17:33> Allergies/Adverse Reactions: Allergies Allergy/AdvReac Type Severity Reaction Status Date / Time No Known Allergies Allergy Verified 07/10/20 05:35 <ROS Beltran Last Filed: 11/09/21 17:33> Review of Systems Review of Systems: Constitutional: No Fever, No Chills ENT/Mouth: No sore throat, No Rhinorrhea, No Swallowing Difficulty Cardiovascular: No Chest Pain, No SOB, No Orthopnea, No Edema Respiratory: No Cough, No Sputum, No Wheezing, No dyspnea Gastrointestinal: No Nausea, No Vomiting, + Diarrhea, No abdominal Pain, No Hematochezia, No Melena Genitourinary: No Dysuria, No Urinary Frequency, No Hematuria Musculoskeletal: No joint pain, No Myalgias Skin: No Skin Lesions, No rash Neuro: No Weakness, No Numbness, No Dizziness, No Headache Psych: + Anxiety/Panic, + Depression, No SI, No HI, No hallucinations Heme/Lymph: No Bruising, No Lymphadenopathy Endocrine: No Polyuria, No Polydipsia <ROS Beltran - Last Filed: 11/09/21 17:33> [facility] Past Medical History Medical History: Medical History Abnormal ECG Alcoholism Anxiety Clostridial gastroenteritis Depression Diverticulitis History of ETOH abuse Precordial chest pain Prolonged QT interval Stress-induced cardiomyopathy <ROS Beltran - Last Filed: 11/09/21 17:33> Social History Social History: Social History Household Members: Friend(s) Household Members Other:: father and occasionally the son gray Housing: Apartment Do you presently have visiting nurse or other home services: No Unable to assess alcohol history related to: Unable to respond Alcohol intake: current Alcohol intake frequency: 3 or more drinks per day Patient Tobacco Use Status: Current everyday Tobacco user Substance Use Type: Marijuana Advance Directives: No Advance Directives Information Provided: No service: No Current occupational status: unemployed <ROS Beltran - Last Filed: 11/09/21 17:33> Physical Exam ED Vital Signs: Vital Signs - 24 hr 11/09/21 14:14 11/09/21 16:28 11/09/21 20:00 Temperature 98.4 F 98.7 F Pulse Rate 91 93 110 H Respiratory Rate 20 18 19 Blood Pressure 138/80 167/88 H Pulse Oximetry 97 96 95 11/09/21 21:18 Temperature 96.5 F L Pulse Rate 98 Respiratory Rate 20 Blood Pressure 148/84 H Pulse Oximetry 95 BMI result Body Mass Index 27.4 <ROS Beltran - Last Filed: 11/09/21 17:33> Vital Signs - 24 hr 11/09/21 14:14 11/09/21 16:28 11/09/21 20:00 Temperature 98.4 F 98.7 F Pulse Rate 91 93 110 H Respiratory Rate 20 18 19 Blood Pressure 138/80 167/88 H Pulse Oximetry 97 96 95 11/09/21 21:18 Temperature 96.5 F L Pulse Rate 98 Respiratory Rate 20 Blood Pressure 148/84 H Pulse Oximetry 95 BMI result Body Mass Index 27.4 <ROS Hernandez - Last Filed: 11/10/21 01:49> Appearance: Alert. Oriented X3. Tearful, calm and cooperative Eyes: Pupils equal, round and reactive to light. ENT: Pharynx normal. Neck: Normal inspection. Neck supple. CVS: Normal heart rate and rhythm. Pulses normal. Respiratory: No respiratory distress. Breath sounds normal. Abdomen: Soft and nontender. +BS x4 Skin: Skin warm and dry. Normal skin color. Normal skin turgor. No rashes. Extremities: No lower extremity edema. Neuro: Oriented X 3. No motor deficit. No sensory deficit. <ROS Beltran - Last Filed: 11/09/21 17:33> Course Course Course Narrative: 55-year-old female with history of alcohol abuse and dependence with 22 years of sobriety and recently relapsed 2 months ago presents to the ER for alcohol intoxication, seeking detox and rehab. She is depressed and tearful but denies any suicidal or homicidal thoughts. She is not tachycardic or hypertensive on arrival. She admits to drinking heavily earlier today. Will check alcohol level, U tox, basic lab workup and get her seen by the recovery team for possible detox placement. Will monitor for development of alcohol withdrawal. <ROS Beltran - Last Filed: 11/09/21 17:33> Reevaluation(s) Reevaluation #1: ETOH level 199. Transaminases are elevated 308/233 with normal bilirubin. Prior was 65/52, most likely from ETOH abuse. No RUQ pain or tenderness on exam. Her sodium is also slightly low 131 which is chronic. At this time she is medically cleared with plan to be evaluated by CARE team for detox. Physician observation started at 3pm. Patient placed in physician observation because patient is awaiting CARE evaluation for placement for detox from alcohol. At the time observation was started patient's vital signs were stable. Patient is alert and oriented. Neuro exam is non-focal. CV: RRR and lungs are clear. Will continue to monitor. <ROS Beltran - Last Filed: 11/09/21 17:33> Reevaluation #2: Patient anxious and feeling like she starting to get jittery as the alcohol wears off. Not tachycardic and no visible tremor. Will give dose of 1 mg PO ativan. CARE team consult pending for detox. <ROS Beltran - Last Filed: 11/09/21 17:33> Reevaluation #3: Patient now sleeping comfortably. Signed out to night team who will follow up w/ detox placement. <ROS Beltran - Last Filed: 11/09/21 17:33> Additional Reevaluation(s): Patient will be going to detox center and has a bed which was set up by our gymnastics coach or instructor. Patient given another Ativan due to mild tremors. After Ativan tremors significantly improving and patient feels better. Detox center patient will be going can treat mild alcohol withdrawal symptoms. Patient is safe for discharge. <ROS Hernandez - Last Filed: 11/10/21 01:49> Consultations Consultation #1: CARE team/value stream coach <ROS Beltran - Last Filed: 11/09/21 17:33> MDM - Alcohol Lab Data Result diagrams: : 11/09/21 14:27 11/09/21 14:27 <ROS Beltran - Last Filed: 11/09/21 17:33> Labs: Lab Results 11/09/21 11/09/21 11/09/21 Range/Units 14:27 14:27 14:27 WBC 5.1 (4.8-10.8) X10*3/uL RBC 3.55 L (4.20-5.50) X10*6/uL Hgb 11.9 L (12.0-16.0) g/dl Hct 33.9 L (37.0-47.0) % MCV 95.5 (80.0-98.0) fL MCH 33.5 H (27.0-33.0) pg MCHC 35.1 H (31.0-35.0) g/dl RDW 13.8 (11.0-16.0) % Plt Count 154 L (160-400) X10*3/uL MPV 11.2 (9.4-12.3) fL Immature Gran % (Auto) 0.4 (0.0-0.4) % Neut % (Auto) 59.8 (45-73) % Lymph % (Auto) 26.8 (20-40) % [place] % (Auto) 10.5 (2-11) % Eos % (Auto) 2.1 (0-4) % Baso % (Auto) 0.4 (0-2) % Lymph # (Auto) 1.4 (1.2-4.9) X10*3/uL [place] # (Auto) 0.5 (0.1-1.2) X10*3/uL Eos # (Auto) 0.1 (0.0-0.4) X10*3/uL Baso # (Auto) 0.0 (0.0-0.2) X10*3/uL Abs Immat Gran (auto) 0.02 (0.00-0.03) X10*3/uL Absolute Neuts (auto) 3.1 (2.0-8.3) x10*3/uL Absolute Nucleated RBC 0.000 (0.0-0.012) X10*3/uL Nucleated RBC % (auto) 0.0 (0.0-0.2) /100WBC Sodium 131 L (135-145) mmol/L Potassium 3.5 (3.3-5.1) mmol/L Chloride 94 L (96-108) mmol/L Carbon Dioxide 24 (22-29) mmol/L Anion Gap 17 (12-20) BUN 4 L D (9-16) mg/dL Creatinine 0.69 (0.5-1.4) mg/dL Estim Creat Clear Calc 84.6 Estimated GFR > 60 Random Glucose 95 (60-115) mg/dL Calcium 8.6 (8.4-10.2) mg/dL Magnesium 1.9 (1.6-2.6) mg/dL Total Bilirubin 0.6 (0.0-1.0) mg/dL Direct Bilirubin 0.2 (0.0-0.5) mg/dL AST 308 H (5-31) U/L ALT 233 H (0-31) U/L Alkaline Phosphatase 99 (39-117) U/L Total Protein 6.2 L (6.5-8.0) g/dL Albumin 3.9 (3.5-5.0) g/dL Urine Color Urine Appearance Urine pH (5.0-8.0) Ur Specific [place] (1.005-1.025) Urine Protein (NEG-TRACE) MG/DL Urine Glucose (UA) (NEG) MG/DL Urine Ketones (NEG) MG/DL Urine Blood (NEG) Urine Nitrite (NEG) Ur Leukocyte Esterase (NEG) Urine RBC (0) /HPF Urine WBC (0-4) /HPF Ur Squamous Epith Cells /LPF Urine Bacteria /LPF Urine Opiates Screen (Not Detect) Urine Fentanyl Screen (Not Detect) Ur Barbiturates Screen (Not Detect) Ur Phencyclidine Scrn (Not Detect) Ur Amphetamines Screen (Not Detect) U Benzodiazepines Scrn (Not Detect) Urine Cocaine Screen (Not Detect) U Marijuana (THC) Screen (Not Detect) Ethyl Alcohol mg/dL COVID-19 ([facility]) Negative (Negative) COVID-19 Clin Com See Note 11/09/21 11/09/21 11/09/21 Range/Units 14:27 14:38 14:38 WBC (4.8-10.8) X10*3/uL RBC (4.20-5.50) X10*6/uL Hgb (12.0-16.0) g/dl Hct (37.0-47.0) % MCV (80.0-98.0) fL MCH (27.0-33.0) pg MCHC (31.0-35.0) g/dl RDW (11.0-16.0) % Plt Count (160-400) X10*3/uL MPV (9.4-12.3) fL Immature Gran % (Auto) (0.0-0.4) % Neut % (Auto) (45-73) % Lymph % (Auto) (20-40) % [place] % (Auto) (2-11) % Eos % (Auto) (0-4) % Baso % (Auto) (0-2) % Lymph # (Auto) (1.2-4.9) X10*3/uL [place] # (Auto) (0.1-1.2) X10*3/uL Eos # (Auto) (0.0-0.4) X10*3/uL Baso # (Auto) (0.0-0.2) X10*3/uL Abs Immat Gran (auto) (0.00-0.03) X10*3/uL Absolute Neuts (auto) (2.0-8.3) x10*3/uL Absolute Nucleated RBC (0.0-0.012) X10*3/uL Nucleated RBC % (auto) (0.0-0.2) /100WBC Sodium (135-145) mmol/L Potassium (3.3-5.1) mmol/L Chloride (96-108) mmol/L Carbon Dioxide (22-29) mmol/L Anion Gap (12-20) BUN (9-16) mg/dL Creatinine (0.5-1.4) mg/dL Estim Creat Clear Calc Estimated GFR Random Glucose (60-115) mg/dL Calcium (8.4-10.2) mg/dL Magnesium (1.6-2.6) mg/dL Total Bilirubin (0.0-1.0) mg/dL Direct Bilirubin (0.0-0.5) mg/dL AST (5-31) U/L ALT (0-31) U/L Alkaline Phosphatase (39-117) U/L Total Protein (6.5-8.0) g/dL Albumin (3.5-5.0) g/dL Urine Color STRAW Urine Appearance CLEAR Urine pH 5.5 (5.0-8.0) Ur Specific [place] <= 1.005 (1.005-1.025) Urine Protein NEG (NEG-TRACE) MG/DL Urine Glucose (UA) NEG (NEG) MG/DL Urine Ketones NEG (NEG) MG/DL Urine Blood TRACE (NEG) Urine Nitrite NEG (NEG) Ur Leukocyte Esterase NEG (NEG) Urine RBC 0 (0) /HPF Urine WBC 0 (0-4) /HPF Ur Squamous Epith Cells 1+ /LPF Urine Bacteria NONE /LPF Urine Opiates Screen Not Detected (Not Detect) Urine Fentanyl Screen Not Detected (Not Detect) Ur Barbiturates Screen Not Detected (Not Detect) Ur Phencyclidine Scrn Not Detected (Not Detect) Ur Amphetamines Screen Not Detected (Not Detect) U Benzodiazepines Scrn Not Detected (Not Detect) Urine Cocaine Screen Not Detected (Not Detect) U Marijuana (THC) Screen Not Detected (Not Detect) Ethyl Alcohol 199 mg/dL COVID-19 ([facility]) (Negative) COVID-19 Clin Com <ToryROS Daly - Last Filed: 11/09/21 17:33> Lab Results 11/09/21 11/09/21 11/09/21 Range/Units 14:27 14:27 14:27 WBC 5.1 (4.8-10.8) X10*3/uL RBC 3.55 L (4.20-5.50) X10*6/uL Hgb 11.9 L (12.0-16.0) g/dl Hct 33.9 L (37.0-47.0) % MCV 95.5 (80.0-98.0) fL MCH 33.5 H (27.0-33.0) pg MCHC 35.1 H (31.0-35.0) g/dl RDW 13.8 (11.0-16.0) % Plt Count 154 L (160-400) X10*3/uL MPV 11.2 (9.4-12.3) fL Immature Gran % (Auto) 0.4 (0.0-0.4) % Neut % (Auto) 59.8 (45-73) % Lymph % (Auto) 26.8 (20-40) % [place] % (Auto) 10.5 (2-11) % Eos % (Auto) 2.1 (0-4) % Baso % (Auto) 0.4 (0-2) % Lymph # (Auto) 1.4 (1.2-4.9) X10*3/uL [place] # (Auto) 0.5 (0.1-1.2) X10*3/uL Eos # (Auto) 0.1 (0.0-0.4) X10*3/uL Baso # (Auto) 0.0 (0.0-0.2) X10*3/uL Abs Immat Gran (auto) 0.02 (0.00-0.03) X10*3/uL Absolute Neuts (auto) 3.1 (2.0-8.3) x10*3/uL Absolute Nucleated RBC 0.000 (0.0-0.012) X10*3/uL Nucleated RBC % (auto) 0.0 (0.0-0.2) /100WBC Sodium 131 L (135-145) mmol/L Potassium 3.5 (3.3-5.1) mmol/L Chloride 94 L (96-108) mmol/L Carbon Dioxide 24 (22-29) mmol/L Anion Gap 17 (12-20) BUN 4 L D (9-16) mg/dL Creatinine 0.69 (0.5-1.4) mg/dL Estim Creat Clear Calc 84.6 Estimated GFR > 60 Random Glucose 95 (60-115) mg/dL Calcium 8.6 (8.4-10.2) mg/dL Magnesium 1.9 (1.6-2.6) mg/dL Total Bilirubin 0.6 (0.0-1.0) mg/dL Direct Bilirubin 0.2 (0.0-0.5) mg/dL AST 308 H (5-31) U/L ALT 233 H (0-31) U/L Alkaline Phosphatase 99 (39-117) U/L Total Protein 6.2 L (6.5-8.0) g/dL Albumin 3.9 (3.5-5.0) g/dL Urine Color Urine Appearance Urine pH (5.0-8.0) Ur Specific [place] (1.005-1.025) Urine Protein (NEG-TRACE) MG/DL Urine Glucose (UA) (NEG) MG/DL Urine Ketones (NEG) MG/DL Urine Blood (NEG) Urine Nitrite (NEG) Ur Leukocyte Esterase (NEG) Urine RBC (0) /HPF Urine WBC (0-4) /HPF Ur Squamous Epith Cells /LPF Urine Bacteria /LPF Urine Opiates Screen (Not Detect) Urine Fentanyl Screen (Not Detect) Ur Barbiturates Screen (Not Detect) Ur Phencyclidine Scrn (Not Detect) Ur Amphetamines Screen (Not Detect) U Benzodiazepines Scrn (Not Detect) Urine Cocaine Screen (Not Detect) U Marijuana (THC) Screen (Not Detect) Ethyl Alcohol mg/dL COVID-19 ([facility]) Negative (Negative) COVID-19 Clin Com See Note 11/09/21 11/09/21 11/09/21 Range/Units 14:27 14:38 14:38 WBC (4.8-10.8) X10*3/uL RBC (4.20-5.50) X10*6/uL Hgb (12.0-16.0) g/dl Hct (37.0-47.0) % MCV (80.0-98.0) fL MCH (27.0-33.0) pg MCHC (31.0-35.0) g/dl RDW (11.0-16.0) % Plt Count (160-400) X10*3/uL MPV (9.4-12.3) fL Immature Gran % (Auto) (0.0-0.4) % Neut % (Auto) (45-73) % Lymph % (Auto) (20-40) % [place] % (Auto) (2-11) % Eos % (Auto) (0-4) % Baso % (Auto) (0-2) % Lymph # (Auto) (1.2-4.9) X10*3/uL [place] # (Auto) (0.1-1.2) X10*3/uL Eos # (Auto) (0.0-0.4) X10*3/uL Baso # (Auto) (0.0-0.2) X10*3/uL Abs Immat Gran (auto) (0.00-0.03) X10*3/uL Absolute Neuts (auto) (2.0-8.3) x10*3/uL Absolute Nucleated RBC (0.0-0.012) X10*3/uL Nucleated RBC % (auto) (0.0-0.2) /100WBC Sodium (135-145) mmol/L Potassium (3.3-5.1) mmol/L Chloride (96-108) mmol/L Carbon Dioxide (22-29) mmol/L Anion Gap (12-20) BUN (9-16) mg/dL Creatinine (0.5-1.4) mg/dL Estim Creat Clear Calc Estimated GFR Random Glucose (60-115) mg/dL Calcium (8.4-10.2) mg/dL Magnesium (1.6-2.6) mg/dL Total Bilirubin (0.0-1.0) mg/dL Direct Bilirubin (0.0-0.5) mg/dL AST (5-31) U/L ALT (0-31) U/L Alkaline Phosphatase (39-117) U/L Total Protein (6.5-8.0) g/dL Albumin (3.5-5.0) g/dL Urine Color STRAW Urine Appearance CLEAR Urine pH 5.5 (5.0-8.0) Ur Specific [place] <= 1.005 (1.005-1.025) Urine Protein NEG (NEG-TRACE) MG/DL Urine Glucose (UA) NEG (NEG) MG/DL Urine Ketones NEG (NEG) MG/DL Urine Blood TRACE (NEG) Urine Nitrite NEG (NEG) Ur Leukocyte Esterase NEG (NEG) Urine RBC 0 (0) /HPF Urine WBC 0 (0-4) /HPF Ur Squamous Epith Cells 1+ /LPF Urine Bacteria NONE /LPF Urine Opiates Screen Not Detected (Not Detect) Urine Fentanyl Screen Not Detected (Not Detect) Ur Barbiturates Screen Not Detected (Not Detect) Ur Phencyclidine Scrn Not Detected (Not Detect) Ur Amphetamines Screen Not Detected (Not Detect) U Benzodiazepines Scrn Not Detected (Not Detect) Urine Cocaine Screen Not Detected (Not Detect) U Marijuana (THC) Screen Not Detected (Not Detect) Ethyl Alcohol 199 mg/dL COVID-19 ([facility]) (Negative) COVID-19 Clin Com <ROS Hernandez - Last Filed: 11/10/21 01:49> Discharge Plan Discharge Clinical Impression: Alcohol abuse <ROS Beltran - Last Filed: 11/09/21 17:33> Patient Disposition: Home, Self-Care <ROS Beltran - Last Filed: 11/09/21 17:33> Instructions: Abuse of Alcohol (DC) <ROS Beltran - Last Filed: 11/09/21 17:33> Additional Instructions: You will be brought directly to detox center to treat your alcohol abuse. Return to the ED for any chest pain, shortness of breath, seizure. abdominal pain, nausea, vomiting, altered mental status, severe tremors, or any other concerning symptoms. <ROS Beltran - Last Filed: 11/09/21 17:33> Prescriptions: New metoprolol succinate 25 mg tablet extended release 24 hr 25 mg PO DAILY 30 Days Qty: 30 0RF naltrexone 50 mg tablet 50 mg PO DAILY 30 Days Qty: 30 0RF No Action metoprolol succinate [Toprol XL] 25 mg tablet extended release 24 hr 25 mg PO DAILY 90 Days Qty: 90 1RF bupropion HCl [Wellbutrin XL] 150 mg Tablet Extended Release 24 Hr 150 mg PO DAILY 0RF lorazepam 0.5 mg Tablet 0.5 mg PO BID PRN (Reason: Anxiety) 0RF naltrexone 50 mg tablet 1 tab PO DAILY 0RF sertraline 50 mg tablet 1 tab PO DAILY 0RF <ROS Beltran - Last Filed: 11/09/21 17:33> Interventions: ED Discharge Assessment Last Done: 11/09/21 21:25 <ROS Beltran - Last Filed: 11/09/21 17:33> Discharge Date/Time: 11/09/21 21:29 <ROS Beltran - Last Filed: 11/09/21 17:33> Print Language: Sudanese <ROS Beltran - Last Filed: 11/09/21 17:33>
[2021-11-09 14:14] VITALS: BP 112/80; PULSE 72; PULSE 91; RESP 20; O2SAT 97; BMI 27.4
[2021-11-09] MEDS: 0.9 % Sodium Chloride 1,000 ML 999 ML IVCONT (14:23)
[2021-11-09 14:31] LABS: MANUAL DIFF FLAG NO
[2021-11-09 14:33] LABS: Basophils Percent Auto 0.4 % (0-2); Eosinophils Absolute Auto 0.1 X10*3/uL (0.0-0.4); Eosinophils Percent Auto 2.1 % (0-4); Hematocrit 33.9 % (37.0-47.0); Hemoglobin 11.9 g/dl (12.0-16.0); Imm Gran Abs Auto 0.02 X10*3/uL (0.00-0.03); Imm Gran Pct Auto 0.4 % (0.0-0.4); Lymphocytes Absolute Auto 1.4 X10*3/uL (1.2-4.9); Lymphocytes Percent Auto 26.8 % (20-40); Mean Corpuscular HGB Conc 35.1 g/dl (31.0-35.0); Mean Corpuscular Hemoglobin 33.5 pg (27.0-33.0); Mean Corpuscular Volume 95.5 fL (80.0-98.0); Mean Platelet Volume 11.2 fL (9.4-12.3); Monocytes Absolute Auto 0.5 X10*3/uL (0.1-1.2); Monocytes Percent Auto 10.5 % (2-11); Neutrophils Absolute Auto 3.1 x10*3/uL (2.0-8.3); Neutrophils Percent Auto 59.8 % (45-73); Platelet Count 154 X10*3/uL (160-400); Red Blood Count 3.55 X10*6/uL (4.20-5.50); Red Cell Distribution Width 13.8 % (11.0-16.0); White Blood Count 5.1 X10*3/uL (4.8-10.8)
[2021-11-09 14:45] LABS: Appearance Urine CLEAR; Color Urine STRAW; Glucose Urine UA NEG (NEG); Leukocyte Esterase Urine NEG (NEG); Nitrite Urine NEG (NEG); PH 5.5 (5.0-8.0); Specific Gravity - Urine <= 1.005 (1.005-1.025); UACC Culture Trigger NO; Urine Blood TRACE (NEG); Urine Ketones NEG (NEG); Urine Protein NEG (NEG-TRACE)
[2021-11-09 14:49] LABS: Ethanol 199 mg/dL
[2021-11-09 14:50] LABS: COVID-19 Test Negative (Negative)
[2021-11-09 14:56] LABS: Alanine Aminotransferase 233 U/L (0-31); Albumin Level 3.9 g/dL (3.5-5.0); Alkaline Phosphatase 99 U/L (39-117); Anion Gap 17 (12-20); Aspartate Amino Transferase 308 U/L (5-31); Bilirubin Direct 0.2 mg/dL (0.0-0.5); Bilirubin Total 0.6 mg/dL (0.0-1.0); Blood Urea Nitrogen 4 mg/dL (9-16); Calcium 8.6 mg/dL (8.4-10.2); Carbon Dioxide 24 mmol/L (22-29); Chloride 94 mmol/L (96-108); Creatinine Clr Calc Pharmacy 84.6; Estimated Glomerular Filt Rate > 60; Glucose Random 95 mg/dL (60-115); Magnesium 1.9 mg/dL (1.6-2.6); Potassium 3.5 mmol/L (3.3-5.1); Sodium 131 mmol/L (135-145); Total Protein 6.2 g/dL (6.5-8.0)
[2021-11-09 14:57] LABS: Squamous Epithelial Cell Urine 1+ /LPF
[2021-11-09 14:58] LABS: Amphetamine Screen Urine Not Detected (Not Detect); Barbiturates, Urine Not Detected (Not Detect); Benzodiazepines Screen Urine Not Detected (Not Detect); Cannabinoid Screen Urine Not Detected (Not Detect); Cocaine Screen Urine Not Detected (Not Detect); Fentanyl, urine Not Detected (Not Detect); Opiate Screen Urine Not Detected (Not Detect); Phencyclidine Screen Urine Not Detected (Not Detect); RBC Urine 0 /HPF (0); WBC Urine 0 /HPF (0-4)
[2021-11-09] MEDS: LORazepam 1 MG TABLET PO (15:44)
[2021-11-09 16:28] VITALS: BP 138/80; PULSE 93; RESP 18; TEMP 36.9; O2SAT 96
--- NOTE | 2021-11-09 19:43 | PC.NURSE ---
Pt ambulates with steady independent gait to bathroom. Pt returned to stretcher without incidence. Pt currently on phone with intake for detox facility in [place]; assistant basketball coach at bedside who states if all goes well, we'll get her up to [facility]. Pt offers no complaints at this time. This RN to assess pt further once pt is off of telephone.
--- NOTE | 2021-11-09 19:53 | PC.NURSE ---
Pt requesting meds for frequent diarrhea and nicorette gum. Dr Mosquera made aware, to order.
[2021-11-09 20:00] VITALS: BP 167/88; PULSE 110; RESP 19; TEMP 37.1; O2SAT 95
[2021-11-09] MEDS: Loperamide HCl 2 MG CAPSULE 4 MG PO (20:04)
[2021-11-09] MEDS: Nicotine Polacrilex 2 MG GUM BUCCAL (20:04)
--- NOTE | 2021-11-09 20:06 | MHC.RECOVSUP ---
? Reason for consult:Recovery Support o?? Current location ?[facility] o?? Identified substance use concern Alcohol ? ?? Withdrawal ?? Seeking ATS (detox) ?? Support ? Intervention: o?? ATS bed search started/completed/in process o?? Community resources provided o?? Harm reduction discussion ? Plan: o?? Bed search in progress to o?? Patient to follow up with [facility] after discharge ? Additional information: Met with Pt. Pt. states that she was in recovery for 22yrs. Just recently relapsed and has been drinking a lot. She states that she has been drinking because of her father has been very sick and she didn't know how to deal with it.This recovery specialist asked if she was interested in going to detox. Pt. stated that she wants to go. Made arrangements for her to go to [place] detox. Pt. will be sent to detox in [place] around 9pm with a [employer]. ?
[2021-11-09] MEDS: LORazepam 1 MG TABLET 2 MG PO (20:17)
[2021-11-09 21:18] VITALS: BP 148/84; PULSE 98; RESP 20; TEMP 35.8; O2SAT 95
== END 2021-11-09 21:29 | disposition home or self-care (01) ==
PROVIDERS: Physician Assistant; Emergency Provider Emergency Medicine; PCP Nurse Practitioner Family
DX: F10.20 Alcohol dependence, uncomplicated (principal); Y90.6 Blood alcohol level of 120-199 mg/100 ml; F32.A Depression, unspecified; F41.9 Anxiety disorder, unspecified; F17.200 Nicotine dependence, unspecified, uncomplicated; F12.90 Cannabis use, unspecified, uncomplicated; Z20.822 Contact with and (suspected) exposure to COVID-19; Z72.89 Other problems related to lifestyle; Z63.6 Dependent relative needing care at home; Z79.899 Other long term (current) drug therapy
CPT/HCPCS: 80048; 80076; 80307; 81001; 82077; 83735; 85025; 87635; 96360; 99284

== ENCOUNTER 2021-11-16 06:58 | Emergency (ER) | payer MEDICAID, SELFPAY ==
[2021-11-16 07:10] VITALS: BP 136/75; PULSE 73; RESP 18; TEMP 37; O2SAT 95; BMI 22.2
--- NOTE | 2021-11-16 07:19 | ECG_ITS ---
Test Reason : etoh Blood Pressure : / mmHG Vent. Rate : 067 BPM Atrial Rate : 067 BPM P-R Int : 162 ms QRS Dur : 080 ms QT Int : 422 ms P-R-T Axes : 056 086 076 degrees QTc Int : 445 ms Normal sinus rhythm Normal ECG When compared with ECG of 06-NOV-2021 17:14, Vent. rate has decreased BY 39 BPM Referred By: Colleen Hi Electronically Signed By:Billy Alvarez
--- NOTE | 2021-11-16 07:28 | ED.ALCOHOL ---
HPI - Alcohol General Chief Complaint: ETOH/Substance Use Stated Complaint: CHEST PAIN ON/OFF X'S WEEKS,SEEKING ETOH DETOX Time Seen by Provider: 11/16/21 07:08 Source: patient and old records reviewed Mode of arrival: EMS Limitations: no limitations History of Present Illness HPI narrative: reports 2 weeks of chest pressure as well MD complaint: alcohol dependence and desires rehab Last drink: Hours (ago) Chronic alcohol use: Yes Previous visits for alcohol intoxication: Yes Recent trauma: No Associated symptoms: nausea and other (chest pain, mild headache) Treatments prior to arrival: none Related Data Home Medications Medication Instructions Recorded Confirmed bupropion HCl 150 mg 24 hr tablet, 150 mg PO DAILY 08/05/20 11/06/21 extended release (Wellbutrin XL) lorazepam 0.5 mg tablet 0.5 mg PO BID PRN 08/05/20 11/06/21 naltrexone 50 mg tablet 1 tab PO DAILY 11/06/21 11/06/21 sertraline 50 mg tablet 1 tab PO DAILY 11/06/21 11/06/21 Previous Rx's Medication Instructions Recorded metoprolol succinate 25 mg 25 mg PO DAILY 90 Days #90 tab 09/08/20 tablet,extended release 24 hr (Toprol XL) metoprolol succinate 25 mg 25 mg PO DAILY 30 Days #30 tab 11/09/21 tablet,extended release 24 hr naltrexone 50 mg tablet 50 mg PO DAILY 30 Days #30 tab 11/09/21 Allergies Allergy/AdvReac Type Severity Reaction Status Date / Time No Known Allergies Allergy Verified 07/10/20 05:35 Review of Systems Review of Systems: Constitutional : No Weight loss, No Fever, No Chills ENT/Mouth : No sore throat, No Rhinorrhea Eyes: No Eye Pain, No Swelling Cardiovascular : pos Chest Pain, no SOB, no Dyspnea on Exertion, No Orthopnea, No Edema, No Palpitations Respiratory : No Cough, No Sputum Gastrointestinal : pos Nausea, No Vomiting, No Diarrhea, No abdominal Pain, No Hematochezia, No Melena Genitourinary : No Dysuria, No Urinary Frequency Musculoskeletal : No joint pain, No Myalgias, No Joint Swelling Skin : No Skin Lesions, No rash Neuro : No Weakness, No Numbness, No Dizziness, pos Headache Psych : pos Anxiety/Panic, No Depression Heme/Lymph: No Bruising, No Lymphadenopathy Endocrine : No Polyuria, No Polydipsia All other systems reviewed and are negative [facility] Past Medical History Attestation statement: The following information was validated with the patient. Medical History Abnormal ECG Alcoholism Anxiety Clostridial gastroenteritis Depression Diverticulitis History of ETOH abuse Precordial chest pain Prolonged QT interval Stress-induced cardiomyopathy Social History Social History Household Members: Friend(s) Household Members Other:: father and occasionally the son gray Housing: Apartment Do you presently have visiting nurse or other home services: No Unable to assess alcohol history related to: Unable to respond Alcohol intake: current Alcohol intake frequency: 3 or more drinks per day Alcohol type: wine Patient Tobacco Use Status: Current everyday Tobacco user Smoked in Last 30 Days: No Use of substances other than those prescribed or required for medical reasons: Unknown Substance Use Type: Marijuana Advance Directives: No Advance Directives Information Provided: No service: No Current occupational status: unemployed Physical Exam ED Vital Signs: Vital Signs - 24 hr 11/16/21 07:10 11/16/21 08:14 11/16/21 09:59 Temperature 98.6 F 98.6 F Pulse Rate 73 73 74 Respiratory Rate 18 18 14 Blood Pressure 136/75 136/75 Pulse Oximetry 95 95 96 11/16/21 12:46 Temperature Pulse Rate 77 Respiratory Rate 14 Blood Pressure 151/83 H Pulse Oximetry 93 BMI result Body Mass Index 22.2 Appearance: Alert. Oriented X3. No acute distress. Anxious, tearful Eyes: Pupils equal, round and reactive to light. ENT: Pharynx normal. Neck: Normal inspection. Neck supple. CVS: Normal heart rate and rhythm. Pulses normal. Respiratory: No respiratory distress. Breath sounds normal. Abdomen: Soft and non-tender. Skin: Skin warm and dry. Normal skin color. Normal skin turgor. Extremities: No lower extremity edema. No calf ttp Neuro: Oriented X 3. No motor deficit. No sensory deficit. Course Course Course Narrative: medically cleared at this time for CARE team. Physician observation started at 822am. Patient placed in physician observation because the patient needed more time for CARE team to assist in detox help - she is medically cleared at this time. At the time observation was started the patient's vitals were stable, patient is alert and oriented but slightly anxious, Neuro: nonfocal, CV RRR, Lungs clear no detox beds available at this time, initially did not want to go to detox, she is able to call from home, she has a hx of non compliance per detox centers so it has made it hard for placement Physician observation ended at 256pm. Patient seen and cleared by recovery team. Plan is to follow up as outpatient. NAD, lungs clear, CV RRR, Abd nontender, Neuro intact. Disposition is for home. MDM - Alcohol MDM Narrative Medical decision making narrative: 55 yo female with hx of alcohol abuse, HTN, abnormal EKG in past, PAF not on anticoagulation comes in with c/o wanting detox but also atypical chest pressure x 2 weeks at this time likely GERD from ETOH will obtain EKG, troponin x 1, hydrate, IV vitamins, once medically cleared will refer to CARE team for detox. Lab Data Result diagrams: 11/16/21 07:33 11/16/21 07:33 Labs: Lab Results 11/16/21 11/16/21 11/16/21 Range/Units 07:33 07:33 07:33 WBC 8.0 (4.8-10.8) X10*3/uL RBC 3.66 L (4.20-5.50) X10*6/uL Hgb 12.1 (12.0-16.0) g/dl Hct 36.3 L (37.0-47.0) % MCV 99.2 H (80.0-98.0) fL MCH 33.1 H (27.0-33.0) pg MCHC 33.3 (31.0-35.0) g/dl RDW 15.5 (11.0-16.0) % Plt Count 301 D (160-400) X10*3/uL MPV 11.3 (9.4-12.3) fL Immature Gran % (Auto) 1.0 H (0.0-0.4) % Neut % (Auto) 75.3 H (45-73) % Lymph % (Auto) 13.1 L (20-40) % [place] % (Auto) 9.6 (2-11) % Eos % (Auto) 0.4 (0-4) % Baso % (Auto) 0.6 (0-2) % Lymph # (Auto) 1.1 L (1.2-4.9) X10*3/uL [place] # (Auto) 0.8 (0.1-1.2) X10*3/uL Eos # (Auto) 0.0 (0.0-0.4) X10*3/uL Baso # (Auto) 0.1 (0.0-0.2) X10*3/uL Abs Immat Gran (auto) 0.08 H (0.00-0.03) X10*3/uL Absolute Neuts (auto) 6.1 (2.0-8.3) x10*3/uL Absolute Nucleated RBC 0.000 (0.0-0.012) X10*3/uL Nucleated RBC % (auto) 0.0 (0.0-0.2) /100WBC Sodium 135 (135-145) mmol/L Potassium 3.5 (3.3-5.1) mmol/L Chloride 98 (96-108) mmol/L Carbon Dioxide 21 L (22-29) mmol/L Anion Gap 20 (12-20) BUN 5 L (9-16) mg/dL Creatinine 0.72 (0.5-1.4) mg/dL Estim Creat Clear Calc 71.2 Estimated GFR > 60 Random Glucose 87 (60-115) mg/dL Calcium 9.0 (8.4-10.2) mg/dL Magnesium 2.2 (1.6-2.6) mg/dL Total Bilirubin 0.4 (0.0-1.0) mg/dL Direct Bilirubin 0.2 (0.0-0.5) mg/dL AST 82 H (5-31) U/L ALT 136 H (0-31) U/L Alkaline Phosphatase 95 (39-117) U/L Troponin I High Sens (<3.5-17.0) ng/L Total Protein 6.6 (6.5-8.0) g/dL Albumin 4.1 (3.5-5.0) g/dL Lipase 14 (8-78) U/L Ethyl Alcohol mg/dL COVID-19 ([facility]) Negative (Negative) COVID-19 Clin Com See Note 11/16/21 11/16/21 Range/Units 07:33 07:33 WBC (4.8-10.8) X10*3/uL RBC (4.20-5.50) X10*6/uL Hgb (12.0-16.0) g/dl Hct (37.0-47.0) % MCV (80.0-98.0) fL MCH (27.0-33.0) pg MCHC (31.0-35.0) g/dl RDW (11.0-16.0) % Plt Count (160-400) X10*3/uL MPV (9.4-12.3) fL Immature Gran % (Auto) (0.0-0.4) % Neut % (Auto) (45-73) % Lymph % (Auto) (20-40) % [place] % (Auto) (2-11) % Eos % (Auto) (0-4) % Baso % (Auto) (0-2) % Lymph # (Auto) (1.2-4.9) X10*3/uL [place] # (Auto) (0.1-1.2) X10*3/uL Eos # (Auto) (0.0-0.4) X10*3/uL Baso # (Auto) (0.0-0.2) X10*3/uL Abs Immat Gran (auto) (0.00-0.03) X10*3/uL Absolute Neuts (auto) (2.0-8.3) x10*3/uL Absolute Nucleated RBC (0.0-0.012) X10*3/uL Nucleated RBC % (auto) (0.0-0.2) /100WBC Sodium (135-145) mmol/L Potassium (3.3-5.1) mmol/L Chloride (96-108) mmol/L Carbon Dioxide (22-29) mmol/L Anion Gap (12-20) BUN (9-16) mg/dL Creatinine (0.5-1.4) mg/dL Estim Creat Clear Calc Estimated GFR Random Glucose (60-115) mg/dL Calcium (8.4-10.2) mg/dL Magnesium (1.6-2.6) mg/dL Total Bilirubin (0.0-1.0) mg/dL Direct Bilirubin (0.0-0.5) mg/dL AST (5-31) U/L ALT (0-31) U/L Alkaline Phosphatase (39-117) U/L Troponin I High Sens < 3.5 (<3.5-17.0) ng/L Total Protein (6.5-8.0) g/dL Albumin (3.5-5.0) g/dL Lipase (8-78) U/L Ethyl Alcohol 85 mg/dL COVID-19 ([facility]) (Negative) COVID-19 Clin Com ECG Data ECG #1: Attestation: I personally reviewed and interpreted this ECG as follows: ECG interpretation date: 11/16/21 ECG interpretation time: 07:28 Interpretation: Rate:67 Rhythm: NSR [place]: normal Normal P waves. Normal SEAN. Normal QRS complex. ST T wave : inverted t waves aVL, V1, V2 no ALDO qTC: normal prior studies: no acute ischemia The study has been interpreted contemporaneously by me. . Discharge Plan Discharge Clinical Impression: Alcohol abuse Patient Disposition: Home, Self-Care Instructions: Abuse of Alcohol (ED) Additional Instructions: return to ED for any worsening symptoms or concerns please continue to call detox centers Prescriptions: No Action metoprolol succinate [Toprol XL] 25 mg tablet extended release 24 hr 25 mg PO DAILY 90 Days Qty: 90 1RF bupropion HCl [Wellbutrin XL] 150 mg Tablet Extended Release 24 Hr 150 mg PO DAILY 0RF lorazepam 0.5 mg Tablet 0.5 mg PO BID PRN (Reason: Anxiety) 0RF metoprolol succinate 25 mg tablet extended release 24 hr 25 mg PO DAILY 30 Days Qty: 30 0RF naltrexone 50 mg tablet 50 mg PO DAILY 30 Days Qty: 30 0RF naltrexone 50 mg tablet 1 tab PO DAILY 0RF sertraline 50 mg tablet 1 tab PO DAILY 0RF
[2021-11-16] MEDS: 0.9 % Sodium Chloride 1,000 ML 999 ML IVCONT (07:35)
[2021-11-16 07:41] LABS: MANUAL DIFF FLAG NO
[2021-11-16] MEDS: Thiamine HCL 200 MG in 0.9 % Sodium Chloride 100 ML 204 MG IV (07:41)
[2021-11-16] MEDS: Magnesium Sulfate/H2O 2 GM/50 ML PIGGYBACK IV (07:42)
[2021-11-16] MEDS: Famotidine/PF 20 MG/2 ML VIAL IVPUSH (07:42)
[2021-11-16 07:43] LABS: Basophils Absolute Auto 0.1 X10*3/uL (0.0-0.2); Basophils Percent Auto 0.6 % (0-2); Eosinophils Percent Auto 0.4 % (0-4); Hematocrit 36.3 % (37.0-47.0); Hemoglobin 12.1 g/dl (12.0-16.0); Imm Gran Abs Auto 0.08 X10*3/uL (0.00-0.03); Lymphocytes Absolute Auto 1.1 X10*3/uL (1.2-4.9); Lymphocytes Percent Auto 13.1 % (20-40); Mean Corpuscular HGB Conc 33.3 g/dl (31.0-35.0); Mean Corpuscular Hemoglobin 33.1 pg (27.0-33.0); Mean Corpuscular Volume 99.2 fL (80.0-98.0); Mean Platelet Volume 11.3 fL (9.4-12.3); Monocytes Absolute Auto 0.8 X10*3/uL (0.1-1.2); Monocytes Percent Auto 9.6 % (2-11); Neutrophils Absolute Auto 6.1 x10*3/uL (2.0-8.3); Neutrophils Percent Auto 75.3 % (45-73); Platelet Count 301 X10*3/uL (160-400); Red Blood Count 3.66 X10*6/uL (4.20-5.50); Red Cell Distribution Width 15.5 % (11.0-16.0)
[2021-11-16 07:55] LABS: Ethanol 85 mg/dL
[2021-11-16 08:00] LABS: COVID-19 Test Negative (Negative)
[2021-11-16 08:02] LABS: Alanine Aminotransferase 136 U/L (0-31); Albumin Level 4.1 g/dL (3.5-5.0); Alkaline Phosphatase 95 U/L (39-117); Anion Gap 20 (12-20); Aspartate Amino Transferase 82 U/L (5-31); Bilirubin Direct 0.2 mg/dL (0.0-0.5); Bilirubin Total 0.4 mg/dL (0.0-1.0); Blood Urea Nitrogen 5 mg/dL (9-16); Carbon Dioxide 21 mmol/L (22-29); Chloride 98 mmol/L (96-108); Creatinine Clr Calc Pharmacy 71.2; Estimated Glomerular Filt Rate > 60; Glucose Random 87 mg/dL (60-115); Lipase 14 U/L (8-78); Magnesium 2.2 mg/dL (1.6-2.6); Potassium 3.5 mmol/L (3.3-5.1); Sodium 135 mmol/L (135-145); Total Protein 6.6 g/dL (6.5-8.0)
[2021-11-16 08:07] LABS: Troponin-I High Sensitivity < 3.5 ng/L (<3.5-17.0)
[2021-11-16 08:14] VITALS: BP 136/75; PULSE 73; RESP 18; TEMP 37; O2SAT 95
[2021-11-16] MEDS: LORazepam 1 MG TABLET PO (09:04)
[2021-11-16] MEDS: Acetaminophen 325 MG TABLET 650 MG PO (09:05)
--- NOTE | 2021-11-16 09:57 | PC.NURSE ---
pt reports no relief from pain/anxiety. pt states her father keeps contacting her which seems to trigger these increasing feelings. pt reports that father needs round the clock care which she feels the need to provide alone- pt states this is difficult for her at this time due to wanting to detox from etoh.
[2021-11-16 09:59] VITALS: PULSE 74; RESP 14; O2SAT 96
--- NOTE | 2021-11-16 11:02 | PC.NURSE ---
pt agreeable to detox. albarran contacting [facility] and [facility]
--- NOTE | 2021-11-16 11:17 | MHC.RECOVSUP ---
? Reason for consult:RECOVERY Support o Current location:ED-20 o Identified substance use concern:ETOH - Withdrawal - Seeking ATS (detox) - Support ? Intervention: o ATS bed search started/completed/in process o MAT started or to be started o Community resources provided o Harm reduction discussion ? Plan: o Bed search in progress to o Patient to follow up with [facility] after discharge ? Additional information: Patient seeking detox, referrals sent out, waiting to hear back from those referrals.
[2021-11-16] MEDS: LORazepam 1 MG TABLET 2 MG PO (11:51)
[2021-11-16 12:46] VITALS: BP 151/83; PULSE 77; RESP 14; O2SAT 93
--- NOTE | 2021-11-16 13:44 | MHC.RECOVRN ---
T/w spoke with nursing staff at [facility] in [place], pt has been denied admission due not completing abx treatment since last admission. Pt had gone to their ATS on 11/09 and was sent out to [facility] on 11/12 due to bp 70/50 and increased heart rate. T/w was informed pt has hx of urosepsis and this is presumably why pt was admitted to ICU. Nursing at [facility] also reported pt had left [facility] AM and thus is unable to return to [facility] at this time. Discussed with Dr. Hi as well as Casing Crew Pusher.
== END 2021-11-16 15:42 | disposition home or self-care (01) ==
PROVIDERS: Emergency Provider Emergency Medicine
DX: F10.288 Alcohol dependence with other alcohol-induced disorder (principal); R07.89 Other chest pain; R51.9 Headache, unspecified; F17.210 Nicotine dependence, cigarettes, uncomplicated; Z20.822 Contact with and (suspected) exposure to COVID-19; Z71.6 Tobacco abuse counseling; Z71.41 Alcohol abuse counseling and surveillance of alcoholic; Z79.899 Other long term (current) drug therapy
CPT/HCPCS: 36415; 80048; 80076; 82077; 83690; 83735; 84484; 85025; 87635; 93005; 96365; 96366; 96375; 99285; J3411; J3475

== ENCOUNTER 2022-02-11 15:14 | Outpatient (REF) | payer MEDICAID, SELFPAY ==
[2022-02-11 15:53] LABS: COVID-19 Test Negative (Negative); IDNOW Serial# 16C4AD1C
== END 2022-02-11 15:15 | disposition home or self-care (01) ==
LOC: HO.LAB 15:14
PROVIDERS: Visit Provider Internal Medicine
DX: Z20.822 Contact with and (suspected) exposure to COVID-19 (principal)
CPT/HCPCS: 87635; C9803

== ENCOUNTER 2022-03-21 21:04 | Emergency (ER) | payer MEDICAID, SELFPAY ==
[2022-03-21 21:25] VITALS: BP 136/90; PULSE 110; O2SAT 95
--- NOTE | 2022-03-21 21:34 | ED.ALCOHOL ---
HPI - Alcohol General Chief Complaint: Psychiatric Symptoms Stated Complaint: crisis Time Seen by Provider: 03/21/22 21:34 Source: patient Mode of arrival: EMS Limitations: no limitations History of Present Illness HPI narrative: Patient alcoholic drinks vodka with depression making SI statements at home [facility] wellness check in community [address] for depression SI and alcohol use patient denies SI at this time very tearful smelling of alcohol Related Data Home Medications Medication Instructions Recorded Confirmed bupropion HCl 150 mg 24 hr tablet, 150 mg PO DAILY 08/05/20 11/06/21 extended release (Wellbutrin XL) lorazepam 0.5 mg tablet 0.5 mg PO BID PRN Anxiety 08/05/20 11/06/21 naltrexone 50 mg tablet 1 tab PO DAILY 11/06/21 11/06/21 sertraline 50 mg tablet 1 tab PO DAILY 11/06/21 11/06/21 Previous Rx's Medication Instructions Recorded metoprolol succinate 25 mg 25 mg PO DAILY 90 days #90 tabs 09/08/20 tablet,extended release 24 hr (Toprol XL) metoprolol succinate 25 mg 25 mg PO DAILY 30 days #30 tabs 11/09/21 tablet,extended release 24 hr naltrexone 50 mg tablet 50 mg PO DAILY 30 days #30 tabs 11/09/21 Allergies Allergy/AdvReac Type Severity Reaction Status Date / Time No Known Allergies Allergy Verified 03/21/22 21:54 Review of Systems Review of Systems: Yes all other systems are reviewed and are negative [facility] Past Medical History Medical History Abnormal ECG Alcoholism Anxiety Clostridial gastroenteritis Depression Diverticulitis History of ETOH abuse Precordial chest pain Prolonged QT interval Stress-induced cardiomyopathy Social History Social History Household Members: Friend(s) Household Members Other:: father and occasionally the son gray Housing: Apartment Do you presently have visiting nurse or other home services: No Unable to assess alcohol history related to: Unable to respond Alcohol intake: current Alcohol intake frequency: 3 or more drinks per day Alcohol type: hard liquor Patient Tobacco Use Status: Current everyday Tobacco user Smoked in Last 30 Days: Yes Use of substances other than those prescribed or required for medical reasons: No Substance Use Type: Marijuana Advance Directives: No Advance Directives Information Provided: No service: No Current occupational status: unemployed Physical Exam ED Vital Signs: Vital Signs - 24 hr 03/21/22 21:55 Temperature 99.2 F Pulse Rate 112 H Respiratory Rate 18 Blood Pressure 137/95 H Pulse Oximetry 96 Oxygen Delivery Method Room Air BMI result Body Mass Index 23.8 Appearance: Alert. Oriented X3. No acute distress. ETOH+ , Eyes: PERRLA, No Nystagmus ENT: Pharynx normal. Oral Mucosa moist Neck: Normal inspection. Neck supple. CVS: Normal heart rate and rhythm. Pulses normal. Respiratory: No respiratory distress. Equal air entry bilateral, no wheezing/rales/rhonchi Abdomen: Soft and nontender. Bowel sounds are present, no mass palpable, no CVA tenderness Skin: Skin warm and dry. Normal skin color. Normal skin turgor. Extremities: No lower extremity edema. No calf tenderness Psych: Alert and awake tearful denies any SI at this time no ulceration or delusions Neuro: Oriented X 3. No motor deficit. No sensory deficit.No cerebellar signs , cranial nerves II-XII intact MDM - Alcohol MDM Narrative Medical decision making narrative: 2299 Patient alcoholic drinking heavy amount of vodka every day came here with suicidal ideation feel since with withdrawal hydrate her and give IV benzodiazepine for care team to see for placement Differential Diagnosis Differential diagnosis: Likely alcohol dependence Lab Data Attestation: I reviewed the patient's lab results. Result diagrams: 03/21/22 22:25 03/21/22 22:25 Labs: Lab Results 03/21/22 03/21/22 03/21/22 Range/Units 22:25 22:25 22:25 WBC 6.5 (4.8-10.8) X10*3/uL RBC 4.33 (4.20-5.50) X10*6/uL Hgb 14.5 (12.0-16.0) g/dl Hct 41.7 (37.0-47.0) % MCV 96.3 (80.0-98.0) fL MCH 33.5 H (27.0-33.0) pg MCHC 34.8 (31.0-35.0) g/dl RDW 15.1 (11.0-16.0) % Plt Count 164 D (160-400) X10*3/uL MPV 10.0 (9.4-12.3) fL Immature Gran % (Auto) 0.3 (0.0-0.4) % Neut % (Auto) 90.5 H (45-73) % Lymph % (Auto) 8.0 L (20-40) % [place] % (Auto) 0.9 L (2-11) % Eos % (Auto) 0.0 (0-4) % Baso % (Auto) 0.3 (0-2) % Lymph # (Auto) 0.5 L (1.2-4.9) X10*3/uL [place] # (Auto) 0.1 (0.1-1.2) X10*3/uL Eos # (Auto) 0.0 (0.0-0.4) X10*3/uL Baso # (Auto) 0.0 (0.0-0.2) X10*3/uL Abs Immat Gran (auto) 0.02 (0.00-0.03) X10*3/uL Absolute Neuts (auto) 5.9 (2.0-8.3) x10*3/uL Absolute Nucleated RBC 0.000 (0.0-0.012) X10*3/uL Nucleated RBC % (auto) 0.0 (0.0-0.2) /100WBC Smear Tech's Comments VERIFIED Sodium 141 (135-145) mmol/L Potassium 3.6 (3.3-5.1) mmol/L Chloride 101 (96-108) mmol/L Carbon Dioxide 25 (22-29) mmol/L Anion Gap 19 (12-20) BUN 9 D (9-16) mg/dL Creatinine 0.87 (0.5-1.4) mg/dL Estim Creat Clear Calc 55.7 Estimated GFR > 60 Random Glucose 83 (60-115) mg/dL Calcium 8.6 (8.4-10.2) mg/dL Magnesium 1.9 (1.6-2.6) mg/dL Total Bilirubin 1.1 H (0.0-1.0) mg/dL AST 77 H (5-31) U/L ALT 53 H (0-31) U/L Alkaline Phosphatase 90 (39-117) U/L Total Protein 6.7 (6.5-8.0) g/dL Albumin 4.3 (3.5-5.0) g/dL Ethyl Alcohol 342 H* mg/dL COVID-19 ([facility]) Negative (Negative) COVID-19 Clin Com See Note ECG Data ECG #1: Attestation: I personally reviewed and interpreted this ECG as follows: Interpretation: Sinus tachycardia heart rate 123 beats per minute normal interval normal axis no acute ischemic Discharge Plan Discharge Clinical Impression: Suicidal ideation, Alcohol intoxication Patient Disposition: Still a Patient Prescriptions: No Action metoprolol succinate [Toprol XL] 25 mg tablet extended release 24 hr 25 mg PO DAILY 90 Days Qty: 90 1RF bupropion HCl [Wellbutrin XL] 150 mg Tablet Extended Release 24 Hr 150 mg PO DAILY lorazepam 0.5 mg Tablet 0.5 mg PO BID PRN (Reason: Anxiety) metoprolol succinate 25 mg tablet extended release 24 hr 25 mg PO DAILY 30 Days Qty: 30 0RF naltrexone 50 mg tablet 50 mg PO DAILY 30 Days Qty: 30 0RF naltrexone 50 mg tablet 1 tab PO DAILY sertraline 50 mg tablet 1 tab PO DAILY
--- NOTE | 2022-03-21 21:51 | ECG_ITS ---
Test Reason : ETOH Blood Pressure : / mmHG Vent. Rate : 123 BPM Atrial Rate : 123 BPM P-R Int : 150 ms QRS Dur : 080 ms QT Int : 326 ms P-R-T Axes : 066 086 072 degrees QTc Int : 466 ms Sinus tachycardia Otherwise normal ECG When compared with ECG of 16-NOV-2021 07:22, Vent. rate has increased BY 56 BPM Referred By: Dallas Burger Electronically Signed By:Billy Alvarez
[2022-03-21 21:55] VITALS: BP 137/95; PULSE 112; RESP 18; TEMP 37.3; O2SAT 96; BMI 23.8
--- NOTE | 2022-03-21 22:04 | PC.NURSE ---
pt a&ox3, vss - hypertensive/tachycardia, pt reports drinking 1/2 bottle of vodka today. per BHN/son, pt making SI statements, pt sectioned in community by Ania caldwell spoke with son who wanted to make sure pt is safe tonight and will be reevaluated in the morning - [facility] to reassess pt tomorrow. pt denies SI/HI. c/o 03/27 abd pain.
[2022-03-21 22:35] LABS: Basophils Percent Auto 0.3 % (0-2); Hematocrit 41.7 % (37.0-47.0); Hemoglobin 14.5 g/dl (12.0-16.0); Imm Gran Abs Auto 0.02 X10*3/uL (0.00-0.03); Imm Gran Pct Auto 0.3 % (0.0-0.4); Lymphocytes Absolute Auto 0.5 X10*3/uL (1.2-4.9); MANUAL DIFF FLAG SCAN; Mean Corpuscular HGB Conc 34.8 g/dl (31.0-35.0); Mean Corpuscular Hemoglobin 33.5 pg (27.0-33.0); Mean Corpuscular Volume 96.3 fL (80.0-98.0); Monocytes Absolute Auto 0.1 X10*3/uL (0.1-1.2); Monocytes Percent Auto 0.9 % (2-11); Neutrophils Absolute Auto 5.9 x10*3/uL (2.0-8.3); Neutrophils Percent Auto 90.5 % (45-73); Platelet Count 164 X10*3/uL (160-400); Red Blood Count 4.33 X10*6/uL (4.20-5.50); Red Cell Distribution Width 15.1 % (11.0-16.0); SCAN SMEAR FLAG 1; White Blood Count 6.5 X10*3/uL (4.8-10.8)
[2022-03-21 22:37] LABS: SLIDE REVIEW VERIFIED
[2022-03-21 22:58] LABS: COVID-19 Test Negative (Negative)
[2022-03-21 23:09] LABS: Alanine Aminotransferase 53 U/L (0-31); Albumin Level 4.3 g/dL (3.5-5.0); Alkaline Phosphatase 90 U/L (39-117); Anion Gap 19 (12-20); Aspartate Amino Transferase 77 U/L (5-31); Bilirubin Total 1.1 mg/dL (0.0-1.0); Blood Urea Nitrogen 9 mg/dL (9-16); Calcium 8.6 mg/dL (8.4-10.2); Carbon Dioxide 25 mmol/L (22-29); Chloride 101 mmol/L (96-108); Creatinine Clr Calc Pharmacy 55.7; Estimated Glomerular Filt Rate > 60; Ethanol 342 mg/dL; Glucose Random 83 mg/dL (60-115); Potassium 3.6 mmol/L (3.3-5.1); Sodium 141 mmol/L (135-145); Total Protein 6.7 g/dL (6.5-8.0)
[2022-03-21] MEDS: LORazepam 2 MG/ML VIAL 1 MG IVPUSH (23:17)
[2022-03-21] MEDS: 0.9 % Sodium Chloride 1,000 ML 999 ML IV (23:18)
[2022-03-21] MEDS: Thiamine HCL 400 MG in 0.9 % Sodium Chloride 100 ML 208 MG IV (23:18)
[2022-03-21] MEDS: Folic Acid 1 MG TABLET PO (23:21)
[2022-03-21 23:22] LABS: Magnesium 1.9 mg/dL (1.6-2.6)
--- NOTE | 2022-03-21 23:26 | PC.NURSE ---
20G IV placed left hand, medicated per provider order, ivf running.
[2022-03-22] MEDS: LORazepam 2 MG/ML VIAL IVPUSH ×2 (00:23→01:21)
[2022-03-22 01:15] VITALS: PULSE 131; RESP 34; TEMP 37.9; O2SAT 96
[2022-03-22] MEDS: Famotidine/PF 20 MG/2 ML VIAL IVPUSH (01:22)
[2022-03-22 01:57] LABS: Appearance Urine CLEAR; Color Urine YELLOW; Glucose Urine UA NEG (NEG); Leukocyte Esterase Urine NEG (NEG); Nitrite Urine NEG (NEG); Specific Gravity - Urine 1.015 (1.005-1.025); Urine Blood NEG (NEG); Urine Ketones NEG (NEG); Urine Protein TRACE MG/DL (NEG-TRACE)
[2022-03-22 02:24] LABS: Amphetamine Screen Urine Not Detected (Not Detect); Barbiturates, Urine Not Detected (Not Detect); Benzodiazepines Screen Urine Not Detected (Not Detect); Cannabinoid Screen Urine Not Detected (Not Detect); Cocaine Screen Urine Not Detected (Not Detect); Fentanyl, urine Not Detected (Not Detect); Opiate Screen Urine Not Detected (Not Detect); Phencyclidine Screen Urine Not Detected (Not Detect)
[2022-03-22] MEDS: diazePAM 10 MG/2 ML CARTRIDGE IVPUSH (02:36)
--- NOTE | 2022-03-22 04:10 | PC.NURSE ---
Took over care at 3:00am from CATHERINE Montanez, pt is sleeping at this time. No sign of distress at this time.
--- NOTE | 2022-03-22 05:20 | PC.NURSE ---
pt assisted to bathroom. pt had bowel movement. pt being monitored by camera.
[2022-03-22 05:22] VITALS: BP 119/66; PULSE 126; RESP 26; TEMP 36.6; O2SAT 97
--- NOTE | 2022-03-22 10:26 | PHA.MEDREC ---
Pharmacy Consult ? Medication Reconciliation Pharmacy has completed the medication reconciliation. Patient confirmed all medications. Reports Bupropion 300 mg was too much for her so she takes 150 mg daily. Reports she stop the naltrexone. Heidy [place], ToriD
[2022-03-22] MEDS: diazePAM 2 MG TABLET PO (12:47)
== END 2022-03-22 13:02 | disposition home or self-care (01) ==
PROVIDERS: Emergency Provider Internal Medicine
DX: F10.220 Alcohol dependence with intoxication, uncomplicated (principal); Y90.8 Blood alcohol level of 240 mg/100 ml or more; R45.851 Suicidal ideations; R00.0 Tachycardia, unspecified; F41.9 Anxiety disorder, unspecified; F32.A Depression, unspecified; Z20.822 Contact with and (suspected) exposure to COVID-19; F17.200 Nicotine dependence, unspecified, uncomplicated; F12.90 Cannabis use, unspecified, uncomplicated; Z79.899 Other long term (current) drug therapy
CPT/HCPCS: 80053; 80307; 81003; 82077; 83735; 85025; 87635; 93005; 96361; 96365; 96374; 96375; 96376; 99285; J2060; J3360; J3411